=== PATIENT | female | born 1960 | race Caucasian/White ===

== ENCOUNTER 2017-08-12 17:02 | Inpatient (IN) | payer MEDICARE, MEDICAID ==
[~2017-08-12] VITALS: Ht 165.1 cm; Wt 80.9 kg
[~2017-08-12 17:02] MED LIST: ACET325T9 PO; ASPI-630 PO; BENZ1TAB5 PO; BETA15CR4 TP; CLOZ100T7 PO; DIVA500T4 PO; FAMO20TA5 PO; GUAI-40 PO; GUAI100L27 PO; GUAI200T3 PO; LEVO125T5 PO; MAG355OR29 PO; MAGN400O7 PO; METAMUCIL POWD283 GM PO; METF500T9 PO; METH29OI TP; NICO1PAT5 TD; NITR100C62 PO; NYST1POW2 TOP; OLAN5TAB5 PO; OXYB5TAB7 PO; POLY2500 PO; RANI150T2 PO; SIMV40TA3 PO; TOLT4CAP PO
[2017-08-12 17:47] LABS: BASO # 0.2 x10^3/uL (0.0-0.2); BASO % 0 % (0-3); EOS # 0.2 x10^3/uL (0.0-0.7); EOS % 0 % (0-3); HEMATOCRIT 44.1 % (36.0-47.0); HEMOGLOBIN 14.4 g/dL (12.0-15.5); LYMPH # 71.3 x10^3/uL (1.0-4.8); LYMPH % 87 % (24-48); MEAN CORPUSCULAR HEMOGLOBIN 34 pg (25-35); MEAN CORPUSCULAR HGB CONC 33 g/dL (31-37); MEAN CORPUSCULAR VOLUME 103 fL (79-100); MONO % 3 % (0-9); NEUT # 8.1 x10^3uL (1.8-7.7); NEUT % 10 % (31-73); PLATELET COUNT 308 x10^3/uL (140-400); RED BLOOD COUNT 4.27 x10^6/uL (3.50-5.40); RED CELL DISTRIBUTION WIDTH 13.8 % (11.5-14.5)
[2017-08-12 17:49] LABS: ALBUMIN 4.2 g/dL (3.4-5.0); ALBUMIN/GLOBULIN RATIO 0.9 (1.0-1.7); CALCIUM 9.1 mg/dL (8.5-10.1); CREATININE 0.8 mg/dL (0.6-1.0); GFR 73.4; MAGNESIUM 3.1 mg/dL (1.8-2.4); POTASSIUM 3.9 mmol/L (3.5-5.1); TOTAL BILIRUBIN 0.2 mg/dL (0.2-1.0); TOTAL PROTEIN 8.9 g/dL (6.4-8.2)
[2017-08-12 17:52] LABS: VAL ACID 13 mcg/mL (50-100)
[2017-08-12 18:01] LABS: WHITE BLOOD COUNT 81.7 x10^3/uL (4.0-11.0)
--- NOTE | 2017-08-12 18:29 | PHYS DOC ---
Past History Past Medical History: Anxiety, Constipation, CVA, Diabetes, GERD, High Cholesterol, Hypertension, Hypothyroid, Schizophrenia, Other Additional Past Medical Histor: Leukemia Past Surgical History: Appendectomy, Cholecystectomy Alcohol Use: None Drug Use: None Adult General Chief Complaint Chief Complaint: PSYCH EVALUATION HPI HPI Patient is a 57 year old female who presents with evaluation for psychiatric evaluation for admission to [facility]. She has no complaints presently. She has leukemia. No recent fever or illness. Review of Systems Review of Systems DIFFICULT TO OBTAIN DUE TO BASELINE COGNITIVE DEFICITS Patient answers "yes" to all ROS. Allergies Allergies Allergies Coded Allergies Type Severity Reaction Last Updated Verified Cephalosporins Allergy Intermediate 03/30/15 Yes Sulfa (Sulfonamide Antibiotics) Allergy Intermediate 03/30/15 Yes Thiazides Allergy Intermediate 03/30/15 Yes penicillin Allergy Intermediate 03/30/15 Yes Physical Exam Physical Exam Constitutional: Well developed, well nourished, no acute distress, non-toxic appearance. Flat affect HENT: Normocephalic, atraumatic, bilateral external ears normal, oropharynx moist, no oral exudates, nose normal. Eyes: PERRLA, EOMI, conjunctiva normal, no discharge. Neck: Normal range of motion, no tenderness, supple, no stridor. Cardiovascular:Heart rate regular rhythm, no murmur Lungs & Thorax: Bilateral breath sounds clear to auscultation Abdomen: Bowel sounds normal, soft, no tenderness, no masses, no pulsatile masses. Skin: Warm, dry, no erythema, no rash. Back: No tenderness, no CVA tenderness. Extremities: No tenderness, no cyanosis, no clubbing, ROM intact, no edema. Neurologic: Alert and oriented to person and place, normal motor function, normal sensory function, no focal deficits noted. Current Patient Data Vital Signs Vital Signs Date Time Temp Pulse Resp B/P (MAP) Pulse Ox O2 Delivery O2 Flow Rate FiO2 08/12/17 17:02 98.0 85 18 93 BP 135/79 Lab Results Laboratory Tests Test 08/12/17 17:15 White Blood Count 81.7 x10^3/uL (4.0-11.0) *H Red Blood Count 4.27 x10^6/uL (3.50-5.40) Hemoglobin 14.4 g/dL (12.0-15.5) Hematocrit 44.1 % (36.0-47.0) Mean Corpuscular Volume 103 fL (79-100) H Mean Corpuscular Hemoglobin 34 pg (25-35) Mean Corpuscular Hemoglobin Concent 33 g/dL (31-37) Red Cell Distribution Width 13.8 % (11.5-14.5) Platelet Count 308 x10^3/uL (140-400) Neutrophils (%) (Auto) 10 % (31-73) L Lymphocytes (%) (Auto) 87 % (24-48) H Monocytes (%) (Auto) 3 % (0-9) Eosinophils (%) (Auto) 0 % (0-3) Basophils (%) (Auto) 0 % (0-3) Neutrophils # (Auto) 8.1 x10^3uL (1.8-7.7) H Lymphocytes # (Auto) 71.3 x10^3/uL (1.0-4.8) H Monocytes # (Auto) 2.0 x10^3/uL (0.0-1.1) H Eosinophils # (Auto) 0.2 x10^3/uL (0.0-0.7) Basophils # (Auto) 0.2 x10^3/uL (0.0-0.2) Platelet Estimate Pending Sodium Level 142 mmol/L (136-145) Potassium Level 3.9 mmol/L (3.5-5.1) Chloride Level 104 mmol/L (98-107) Carbon Dioxide Level 29 mmol/L (21-32) Anion Gap 9 (6-14) Blood Urea Nitrogen 22 mg/dL (7-20) H Creatinine 0.8 mg/dL (0.6-1.0) Estimated GFR (Cockcroft-Gault) 73.4 BUN/Creatinine Ratio 28 (6-20) H Glucose Level 199 mg/dL (70-99) H Calcium Level 9.1 mg/dL (8.5-10.1) Magnesium Level 3.1 mg/dL (1.8-2.4) H Total Bilirubin 0.2 mg/dL (0.2-1.0) Aspartate Amino Transferase (AST) 18 U/L (15-37) Alanine Aminotransferase (ALT) 52 U/L (14-59) Alkaline Phosphatase 132 U/L (46-116) H Total Protein 8.9 g/dL (6.4-8.2) H Albumin 4.2 g/dL (3.4-5.0) Albumin/Globulin Ratio 0.9 (1.0-1.7) L Valproic Acid Level 13 mcg/mL (50-100) L Valproic Acid Last Dose Date 08/11/17 Valproic Acid Last Dose Time 2100 Course & Med Decision Making Course & Med Decision Making Patient accepted by Dr Carr. Here for medical clearance. Lab noted with elevated WBC consistent with her history of CML. urine is clear and vital signs stable. No evidence of acute process. I have spoken with the patient and/or caregivers. I have explained the patient' s condition, diagnosis and treatment plan based on the information available to me at this time. I have answered the patient's and/or caregiver's questions and addressed any concerns. The patient and/or caregivers have as good an understanding of the patient's diagnosis, condition and treatment plan as can be expected at this point. The patient has been stabilized within the capability of the emergency department. The patient will be transported for further care and management or will be moved to an observation or inpatient service. I have communicated with the staff or medical practitioner taking over this patient's care. Dragon Disclaimer Dragon Disclaimer This electronic medical record was generated, in whole or in part, using a voice recognition dictation system. Departure Departure: Impression: Primary Impression: Bipolar affective disorder Additional Impressions: Behavior concern in adult CML (chronic myelocytic leukemia) Disposition: ADMITTED INPATIENT Admitting Physician: Other (Bruno) Condition: STABLE Referrals: NON,STAFF (PCP) Problem Qualifiers Primary Impression: Bipolar affective disorder Active/Remission status: remission status unspecified Qualified Codes: F31.9 - Bipolar disorder, unspecified ZANE WILLIS MD Aug 12, 2017 18:29
[2017-08-12 18:33] LABS: BILIRUBIN,URINE NEG (NEG); CLARITY,URINE CLEAR; COLOR,URINE YELLOW; GLUCOSE,URINE NEG (NEG); NITRITE,URINE NEG (NEG); UROBILINOGEN,URINE 0.2 mg/dL (0.2 mg/dL)
[2017-08-12 18:34] LABS: AMORPHOUS SEDIMENT,UR PRESENT /HPF; BACTERIA,URINE FEW /HPF (0-FEW); RBC,URINE OCC /HPF (0-2); WBC,URINE OCC /HPF (0-4)
[2017-08-12 18:38] LABS: % LYMPHS 86 % (24-48); % MONOS 3 % (0-10); PLT ESTIMATE ADEQUATE (ADEQUATE)
[2017-08-12 18:39] LABS: PLATELET CLUMP PRESENT; SMUDGE CELLS PRESENT; TOXIC GRANULATION SLIGHT
[2017-08-12] MEDS ORDERED: NIAC500T PO (21:04)
[2017-08-12] MEDS ORDERED: ACET325T9 PO (21:04)
[2017-08-12] MEDS ORDERED: MULT1TAB52 PO (21:04)
[2017-08-12] MEDS ORDERED: OMEP20TA8 PO (21:04)
[2017-08-12] MEDS ORDERED: BENZ1TAB5 PO (21:04)
[2017-08-12] MEDS ORDERED: MELO7.5T29 PO (21:04)
[2017-08-12] MEDS ORDERED: LEVO150T5 PO (21:04)
[2017-08-12] MEDS ORDERED: CLOZ100T7 PO (21:04)
[2017-08-12] MEDS ORDERED: SERT25TA PO (21:04)
[2017-08-12] MEDS ORDERED: MAGNESIUM HYDROXIDE 2,400 MG/30 ML ORAL.SUSP. PO PRN (21:15)
[2017-08-12] MEDS ORDERED: MAG HYDROX/AL HYDROX/SIMETH 30 ML ORAL.SUSP PO PRN (21:15)
[2017-08-12] MEDS ORDERED: ACETAMINOPHEN 325 MG TABLET PO PRN ×2 (21:15→23:00)
[2017-08-12] MEDS ORDERED: METHYL SALICYLATE/MENTHOL TOPICAL OINTMENT 29GM TUBE. TP PRN (21:15)
[2017-08-12 22:46] VITALS: BP 147/43
[2017-08-13 05:45] VITALS: BP 138/74
[2017-08-13] MEDS: LEVOTHYROXINE 150 MCG TABLET PO SCH (06:26)
[2017-08-13] MEDS: SERTRALINE 25 MG TABLET. PO SCH (07:50)
[2017-08-13] MEDS: NICOTINE 14MG PATCH. TD SCH (07:50)
[2017-08-13] MEDS: cloZAPine 100 MG TABLET PO SCH ×2 (07:50→20:20)
[2017-08-13] MEDS: PANTOPRAZOLE 40 MG TABLET. PO SCH (09:10)
[2017-08-13] MEDS: MELOXICAM 7.5 MG TABLET PO SCH (09:11)
[2017-08-13] MEDS: ASPIRIN 81 MG TAB.CHEW PO SCH (09:11)
[2017-08-13] MEDS: ACETAMINOPHEN 325 MG TABLET PO SCH ×2 (09:11→20:18)
[2017-08-13] MEDS: BENZTROPINE MESYLATE 1 MG TABLET PO SCH ×2 (09:11→20:17)
[2017-08-13] MEDS: POLYETHYLENE GLYCOL 3350 17 GM PACKET. PO SCH (09:11)
[2017-08-13] MEDS: PSYLLIUM SEED (WITH SUGAR) PACKET. PO SCH (09:11)
[2017-08-13 11:36] LABS: THYROID STIM HORMONE (TSH) 6.597 uIU/mL (0.358-3.740)
--- NOTE | 2017-08-13 15:02 | PDOC1 ---
History of Present Illness Reason for Visit: Agitation History of Present Illness Pt sent from [place] where she had been recently easily agitated, paranoid, delusional. Saying that people are trying to shoot her, refusing meds and vitals, accusing people of stealing money from her. When I saw her this afternoon, she did acknowledge me, but did not answer any questions. As such, all information is gleaned from the nursing staff and the medical record. 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: CVA GI: Other (Diarrhea, chronic) Heme/Onc: Anemia NOS, Other (Leukemia) Psych: Schizophrenia, Other (Intellectual disability) Endocrine: Diabetes (Type 2), Hypothyroidism Past Surgical History: No pertinent history Family History: No pertinent hx Past Social History Smoke: 1 pack per day Alcohol: none Drugs: None Lives: Prison Review of Systems Review Of Systems ROS unreliable, unobtainable due to pt's mental status Allergies: Coded Allergies: Cephalosporins (Verified Allergy, Intermediate, 03/30/15) Sulfa (Sulfonamide Antibiotics) (Verified Allergy, Intermediate, 03/30/15) Thiazides (Verified Allergy, Intermediate, 03/30/15) penicillin (Verified Allergy, Intermediate, 03/30/15) Medications Current Medications Benztropine Mesylate (Cogentin) 1 mg BID PO Last administered on 08/13/17at 09: 11; Start 08/13/17 at 09:00 Clozapine (Clozaril) 100 mg DAILY PO Last administered on 08/13/17at 07:50; Start 08/13/17 at 09:00 Clozapine (Clozaril) 150 mg QHS PO ; Start 08/13/17 at 21:00 Divalproex Sodium (Depakote Er) 1,000 mg QHS PO ; Start 08/13/17 at 21:00 Sertraline HCl (Zoloft) 25 mg DAILY PO Last administered on 08/13/17at 07:50; Start 08/13/17 at 09:00 Acetaminophen (Tylenol) 650 mg PRN Q6HRS PRN PO PAIN / TEMP; Start 08/12/17 at 21:15 Multi-Ingredient Ointment (Analgesic Mentor) 1 glenny PRN QID PRN TP MUSCLE PAIN; Start 08/12/17 at 21:15 Al Hydroxide/Mg Hydroxide (Mylanta Plus Xs) 15 ml PRN AFTMEALHC PRN PO DYSPEPSIA; Start 08/12/17 at 21:15 Magnesium Hydroxide (Milk Of Magnesia) 2,400 mg PRN QHS PRN PO CONSTIPATION; Start 08/12/17 at 21:15 Nicotine (Nicoderm Cq 14mg) 1 patch DAILY TD Last administered on 08/13/17at 07: 50; Start 08/13/17 at 09:00 Acetaminophen (Tylenol) 650 mg BID PO Last administered on 08/13/17at 09:11; Start 08/13/17 at 09:00 Acetaminophen (Tylenol) 650 mg PRN Q4HRS PRN PO PAIN / TEMP; Start 08/12/17 at 23:00; Stop 08/13/17 at 12:14; Status DC Aspirin (Children'S Aspirin) 81 mg DAILY PO Last administered on 08/13/17at 09: 11; Start 08/13/17 at 09:00 Levothyroxine Sodium (Synthroid) 150 mcg DAILY06 PO Last administered on at 06:26; Start 08/13/17 at 06:00 Meloxicam (Mobic) 7.5 mg DAILY PO Last administered on 08/13/17at 09:11; Start 08/13/17 at 09:00 Metformin HCl (Glucophage Xr) 1,000 mg DAILYWSUP PO ; Start 08/13/17 at 17:00 Niacin (Slo-Niacin) 500 mg QHS PO ; Start 08/13/17 at 21:00 Pantoprazole Sodium (Protonix) 40 mg DAILYAC PO Last administered on 08/13/17at 09:10; Start 08/13/17 at 07:30 Polyethylene Glycol (miraLAX) 17 gm DAILY PO Last administered on 08/13/17at 09: 11; Start 08/13/17 at 09:00 Psyllium Hydrophilic Mucilloid (Metamucil) 1 pkt DAILY PO Last administered on 08/13/17at 09:11; Start 08/13/17 at 09:00 Active Scripts Active Reported Clozapine 100 Mg Tablet 150 Mg PO QHS Zoloft (Sertraline Hcl) 25 Mg Tablet 25 Mg PO DAILY Niaspan (Niacin) 500 Mg Tab.er.24h 500 Mg PO QHS Omeprazole 20 Mg Tablet.dr 20 Mg PO DAILYAC Levothyroxine Sodium 150 Mcg Tablet 150 Mcg PO DAILYAC Tylenol (Acetaminophen) 325 Mg Tablet 650 Mg PO BID Benztropine Mesylate 1 Mg Tablet 1 Mg PO BID Multivitamins (Multivitamin) 1 Each Tablet 1 Each PO DAILY Meloxicam 7.5 Mg Tablet 7.5 Mg PO DAILY Clozapine 100 Mg Tablet 100 Mg PO DAILY Metamucil Powder (Psyllium Seed/Aspartame) 283 Gm Powder 1 Packet PO DAILY Tylenol (Acetaminophen) 325 Mg Tablet 650 Mg PO PRN Q4HRS PRN Polyethylene Glycol 3350 2,500 Gm Powder 17 Gm PO DAILY Aspirin 81 Mg Tab.chew 1 Tab PO DAILY Depakote Er (Divalproex Sodium) 500 Mg Tab.er.24h 1,000 Mg PO QHS Metformin Hcl Er (Metformin Hcl) 500 Mg Tab.er.24h 1,000 Mg PO DAILYWSUP Milk Of Magnesia (Magnesium Hydroxide) 400 Mg/5 Ml Oral.susp 30 Ml PO PRN BID PRN Al[place]one Liquid (Mag Hydrox/Al Hydrox/Simeth) 355 Ml Oral.susp 30 Ml PO PRN Q6HRS PRN Exam Vital Signs Vital Signs Date Time Temp Pulse Resp B/P (MAP) Pulse Ox O2 Delivery O2 Flow Rate FiO2 08/13/17 05:45 96.7 58 20 138/74 (95) 93 08/12/17 20:10 Room Air General Appearance: Alert, Cooperative, No acute distress, Other (Does not answer questions, but will acknowledge me) HEENT: Atraumatic, PERRLA, EOMI, Mucous membr. moist/pink, Other (Neck supple, no torticollis, no JVD, no LAD) Respiratory: Clear to auscultation, Normal air movement Heart: Other (Regular, no murmur, rate normal) Abdominal: Soft, No tenderness, No masses Extremities: Normal pulses, No tenderness/swelling Skin: No rashes, No breakdown Neuro: Other (Right hemiplegia, wears brace on RLE. Unable to assess further due to pt not following instructions, but no obvious focal deficits noted otherwiise) Psych/Mental Status: Other (Alert, but does not speak to me.) Assessment/Plan Assessment/Plan 1. Schizophrenia w/ intellectual disability and behavior disturbances: Per Dr. Carr. 2. DM2: Monitor sugars. Continue home meds, avoid hypoglycemia. 3. HTN: Monitor BP's, adjust BP as necessary. 4. CVA w/ right hemiplegia: Continue aspirin for secondary stroke prophylaxis. 5. Hypothyroid: Pt's TSH is a little high, but she reportedly has not been taking her meds. We will continue her home dose. 6. Leukemia: WBC much higher than when she was here in 2015. This appears to be worsening. No treatment is being done, apparently. 7. DVT proph: Pt is WC-bound, recommend BID heparin to avoid DVT. COURSE Allergies Coded Allergies Type Severity Reaction Last Updated Verified Cephalosporins Allergy Intermediate 03/30/15 Yes Sulfa (Sulfonamide Antibiotics) Allergy Intermediate 03/30/15 Yes Thiazides Allergy Intermediate 03/30/15 Yes penicillin Allergy Intermediate 03/30/15 Yes Laboratory Tests Test 08/12/17 17:15 08/12/17 18:15 White Blood Count 81.7 x10^3/uL (4.0-11.0) Red Blood Count 4.27 x10^6/uL (3.50-5.40) Hemoglobin 14.4 g/dL (12.0-15.5) Hematocrit 44.1 % (36.0-47.0) Mean Corpuscular Volume 103 fL (79-100) Mean Corpuscular Hemoglobin 34 pg (25-35) Mean Corpuscular Hemoglobin Concent 33 g/dL (31-37) Red Cell Distribution Width 13.8 % (11.5-14.5) Platelet Count 308 x10^3/uL (140-400) Neutrophils (%) (Auto) 10 % (31-73) Lymphocytes (%) (Auto) 87 % (24-48) Monocytes (%) (Auto) 3 % (0-9) Eosinophils (%) (Auto) 0 % (0-3) Basophils (%) (Auto) 0 % (0-3) Neutrophils # (Auto) 8.1 x10^3uL (1.8-7.7) Lymphocytes # (Auto) 71.3 x10^3/uL (1.0-4.8) Monocytes # (Auto) 2.0 x10^3/uL (0.0-1.1) Eosinophils # (Auto) 0.2 x10^3/uL (0.0-0.7) Basophils # (Auto) 0.2 x10^3/uL (0.0-0.2) Segmented Neutrophils % 11 % (35-66) Lymphocytes % 86 % (24-48) Monocytes % 3 % (0-10) Smudge Cells Present Toxic Granulation Slight Platelet Estimate Adequate (ADEQUATE) Platelet Clumps, EDTA Present Sodium Level 142 mmol/L (136-145) Potassium Level 3.9 mmol/L (3.5-5.1) Chloride Level 104 mmol/L (98-107) Carbon Dioxide Level 29 mmol/L (21-32) Anion Gap 9 (6-14) Blood Urea Nitrogen 22 mg/dL (7-20) Creatinine 0.8 mg/dL (0.6-1.0) Estimated GFR (Cockcroft-Gault) 73.4 BUN/Creatinine Ratio 28 (6-20) Glucose Level 199 mg/dL (70-99) Calcium Level 9.1 mg/dL (8.5-10.1) Magnesium Level 3.1 mg/dL (1.8-2.4) Iron Level 62 ug/dL (50-170) Total Iron Binding Capacity 391 ug/dL (250-450) Iron Saturation 16 % (15-34) Total Bilirubin 0.2 mg/dL (0.2-1.0) Aspartate Amino Transf (AST/SGOT) 18 U/L (15-37) Alanine Aminotransferase (ALT/SGPT) 52 U/L (14-59) Alkaline Phosphatase 132 U/L (46-116) Total Protein 8.9 g/dL (6.4-8.2) Albumin 4.2 g/dL (3.4-5.0) Albumin/Globulin Ratio 0.9 (1.0-1.7) Triglycerides Level 287 mg/dL (0-150) Cholesterol Level 198 mg/dL (0-200) LDL Cholesterol, Calculated 97 mg/dL (0-100) VLDL Cholesterol, Calculated 57 mg/dL (0-40) Non-HDL Cholesterol Calculated 154 mg/dL (0-129) HDL Cholesterol 44 mg/dL (40-60) Cholesterol/HDL Ratio 4.0 Thyroid Stimulating Hormone (TSH) 6.597 uIU/mL (0.358-3.740) Valproic Acid (Depakene) Level 13 mcg/mL (50-100) Valproic Acid Last Dose Date 08/11/17 Valproic Acid Last Dose Time 2100 Urine Collection Type U cath Urine Color Yellow Urine Clarity Clear Urine pH 8.5 Urine Specific [place] 1.020 Urine Protein Neg (NEG-TRACE) Urine Glucose (UA) Neg mg/dL (NEG) Urine Ketones (Stick) Neg mg/dL (NEG) Urine Blood Neg (NEG) Urine Nitrite Neg (NEG) Urine Bilirubin Neg (NEG) Urine Urobilinogen Dipstick 0.2 mg/dL (0.2 mg/dL) Urine Leukocyte Esterase Neg (NEG) Urine RBC Occ /HPF (0-2) Urine WBC Occ /HPF (0-4) Urine Squamous Epithelial Cells None /LPF Urine Amorphous Sediment Present /HPF Urine Bacteria Few /HPF (0-FEW) Current Medications Medications (Trade) Dose Ordered Sig/[place] Route PRN Reason Start Time Stop Time Status Last Admin Dose Admin Benztropine Mesylate (Cogentin) 1 mg BID PO 08/13/17 09:00 08/13/17 09:11 Clozapine (Clozaril) 100 mg DAILY PO 08/13/17 09:00 08/13/17 07:50 Clozapine (Clozaril) 150 mg QHS PO 08/13/17 21:00 Divalproex Sodium (Depakote Er) 1,000 mg QHS PO 08/13/17 21:00 Sertraline HCl (Zoloft) 25 mg DAILY PO 08/13/17 09:00 08/13/17 07:50 Acetaminophen (Tylenol) 650 mg PRN Q6HRS PRN PO PAIN / TEMP 08/12/17 21:15 Multi-Ingredient Ointment (Analgesic Mentor) 1 glenny PRN QID PRN TP MUSCLE PAIN 08/12/17 21:15 Al Hydroxide/Mg Hydroxide (Mylanta Plus Xs) 15 ml PRN AFTMEALHC PRN PO DYSPEPSIA 08/12/17 21:15 Magnesium Hydroxide (Milk Of Magnesia) 2,400 mg PRN QHS PRN PO CONSTIPATION 08/12/17 21:15 Nicotine (Nicoderm Cq 14mg) 1 patch DAILY TD 08/13/17 09:00 08/13/17 07:50 Acetaminophen (Tylenol) 650 mg BID PO 08/13/17 09:00 08/13/17 09:11 Acetaminophen (Tylenol) 650 mg PRN Q4HRS PRN PO PAIN / TEMP 08/12/17 23:00 08/13/17 12:14 DC Aspirin (Children'S Aspirin) 81 mg DAILY PO 08/13/17 09:00 08/13/17 09:11 Levothyroxine Sodium (Synthroid) 150 mcg DAILY06 PO 08/13/17 06:00 08/13/17 06:26 Meloxicam (Mobic) 7.5 mg DAILY PO 08/13/17 09:00 08/13/17 09:11 Metformin HCl (Glucophage Xr) 1,000 mg DAILYWSUP PO 08/13/17 17:00 Niacin (Slo-Niacin) 500 mg QHS PO 08/13/17 21:00 Pantoprazole Sodium (Protonix) 40 mg DAILYAC PO 08/13/17 07:30 08/13/17 09:10 Polyethylene Glycol (miraLAX) 17 gm DAILY PO 08/13/17 09:00 08/13/17 09:11 Psyllium Hydrophilic Mucilloid (Metamucil) 1 pkt DAILY PO 08/13/17 09:00 08/13/17 09:11 I & O 08/13/17 00:00 Intake Total 0 ml Balance 0 ml Vital Signs Date Time Temp Pulse Resp B/P (MAP) Pulse Ox O2 Delivery O2 Flow Rate FiO2 08/13/17 05:45 96.7 58 20 138/74 (95) 93 08/12/17 20:10 Room Air ORLANDO MAK MD Aug 13, 2017 15:02
[2017-08-13 15:06] LABS: T3 TOTAL 70 ng/dL (71-180)
[2017-08-13 16:44] VITALS: BP 137/59
[2017-08-13] MEDS: metFORMIN XR 500 MG TAB.ER.24H PO SCH (17:00)
--- NOTE | 2017-08-13 19:47 | PDOC ---
Exam Note: Andrew Note: Please also refer to the separate dictated note~for this date of service dictated separately.~Patient seen individually. Discussed the patient with Nursing staff reviewed the chart.~Reviewed interim history and current functioning. Reviewed vital signs,~Labs/ Radiology~and current medications noted below. Continue current treatment with the changes noted in the dictated addendum note Assessment: Vital Signs: Vital Signs Date Time Temp Pulse Resp B/P (MAP) Pulse Ox O2 Delivery O2 Flow Rate FiO2 08/13/17 16:44 98.6 77 18 137/59 (85) 94 08/12/17 20:10 Room Air I&O Intake and Output 08/13/17 07:00 Intake Total 0 ml Balance 0 ml Intake Oral 0 ml Current Medications: Meds: Current Medications Benztropine Mesylate (Cogentin) 1 mg BID PO Last administered on 08/13/17at 09: 11; Start 08/13/17 at 09:00 Clozapine (Clozaril) 100 mg DAILY PO Last administered on 08/13/17at 07:50; Start 08/13/17 at 09:00 Clozapine (Clozaril) 150 mg QHS PO ; Start 08/13/17 at 21:00 Divalproex Sodium (Depakote Er) 1,000 mg QHS PO ; Start 08/13/17 at 21:00 Sertraline HCl (Zoloft) 25 mg DAILY PO Last administered on 08/13/17at 07:50; Start 08/13/17 at 09:00 Acetaminophen (Tylenol) 650 mg PRN Q6HRS PRN PO PAIN / TEMP; Start 08/12/17 at 21:15 Multi-Ingredient Ointment (Analgesic [place]) 1 glenny PRN QID PRN TP MUSCLE PAIN; Start 08/12/17 at 21:15 Al Hydroxide/Mg Hydroxide (Mylanta Plus Xs) 15 ml PRN AFTMEALHC PRN PO DYSPEPSIA; Start 08/12/17 at 21:15; Stop 08/13/17 at 17:19; Status DC Magnesium Hydroxide (Milk Of Magnesia) 2,400 mg PRN QHS PRN PO CONSTIPATION; Start 08/12/17 at 21:15; Stop 08/13/17 at 17:19; Status DC Nicotine (Nicoderm Cq 14mg) 1 patch DAILY TD Last administered on 08/13/17at 07: 50; Start 08/13/17 at 09:00 Acetaminophen (Tylenol) 650 mg BID PO Last administered on 08/13/17at 09:11; Start 08/13/17 at 09:00 Acetaminophen (Tylenol) 650 mg PRN Q4HRS PRN PO PAIN / TEMP; Start 08/12/17 at 23:00; Stop 08/13/17 at 12:14; Status DC Aspirin (Children'S Aspirin) 81 mg DAILY PO Last administered on 08/13/17at 09: 11; Start 08/13/17 at 09:00 Levothyroxine Sodium (Synthroid) 150 mcg DAILY06 PO Last administered on at 06:26; Start 08/13/17 at 06:00 Meloxicam (Mobic) 7.5 mg DAILY PO Last administered on 08/13/17at 09:11; Start 08/13/17 at 09:00 Metformin HCl (Glucophage Xr) 1,000 mg DAILYWSUP PO Last administered on at 17:00; Start 08/13/17 at 17:00 Niacin (Slo-Niacin) 500 mg QHS PO ; Start 08/13/17 at 21:00 Pantoprazole Sodium (Protonix) 40 mg DAILYAC PO Last administered on 08/13/17at 09:10; Start 08/13/17 at 07:30 Polyethylene Glycol (miraLAX) 17 gm DAILY PO Last administered on 08/13/17at 09: 11; Start 08/13/17 at 09:00 Psyllium Hydrophilic Mucilloid (Metamucil) 1 pkt DAILY PO Last administered on 08/13/17at 09:11; Start 08/13/17 at 09:00 Heparin Sodium (Porcine) 5,000 unit Q12HR SQ ; Start 08/13/17 at 21:00 Active Scripts Active Reported Clozapine 100 Mg Tablet 150 Mg PO QHS Zoloft (Sertraline Hcl) 25 Mg Tablet 25 Mg PO DAILY Niaspan (Niacin) 500 Mg Tab.er.24h 500 Mg PO QHS Omeprazole 20 Mg Tablet.dr 20 Mg PO DAILYAC Levothyroxine Sodium 150 Mcg Tablet 150 Mcg PO DAILYAC Tylenol (Acetaminophen) 325 Mg Tablet 650 Mg PO BID Benztropine Mesylate 1 Mg Tablet 1 Mg PO BID Multivitamins (Multivitamin) 1 Each Tablet 1 Each PO DAILY Meloxicam 7.5 Mg Tablet 7.5 Mg PO DAILY Clozapine 100 Mg Tablet 100 Mg PO DAILY Metamucil Powder (Psyllium Seed/Aspartame) 283 Gm Powder 1 Packet PO DAILY Tylenol (Acetaminophen) 325 Mg Tablet 650 Mg PO PRN Q4HRS PRN Polyethylene Glycol 3350 2,500 Gm Powder 17 Gm PO DAILY Aspirin 81 Mg Tab.chew 1 Tab PO DAILY Depakote Er (Divalproex Sodium) 500 Mg Tab.er.24h 1,000 Mg PO QHS Metformin Hcl Er (Metformin Hcl) 500 Mg Tab.er.24h 1,000 Mg PO DAILYWSUP Milk Of Magnesia (Magnesium Hydroxide) 400 Mg/5 Ml Oral.susp 30 Ml PO PRN BID PRN Almacone Liquid (Mag Hydrox/Al Hydrox/Simeth) 355 Ml Oral.susp 30 Ml PO PRN Q6HRS PRN I have reviewed the current psychotropics carefully including drug interactions. Risk benefit ratio favors no change other than as noted in my dictated progress note. Diagnosis: Problems: (1) Anxiety disorder (2) Impulse control disorder (3) Schizoaffective disorder (4) Schizoaffective disorder, chronic condition with acute exacerbation (5) Borderline intellectual disability GEORGE REYNOLDS MD Aug 13, 2017 19:47
[2017-08-13] MEDS: NIACIN ER 500 MG TABLET.ER PO SCH (20:20)
[2017-08-13] MEDS: DIVALPROEX ER 500 MG TAB.ER.24H PO SCH (20:20)
[2017-08-13] MEDS: HEPARIN PF for SUB-Q USE 5,000 UNIT/0.5 ML VIAL. SQ SCH (20:35)
[2017-08-14 00:08] LABS: HEMOGLOBIN A1C 6.5 % (4.8-5.6)
[2017-08-14] MEDS: LEVOTHYROXINE 150 MCG TABLET PO SCH (05:34)
[2017-08-14 06:10] VITALS: BP 113/71
[2017-08-14 07:46] LABS: BASO # 0.1 x10^3/uL (0.0-0.2); BASO % 0 % (0-3); EOS # 0.3 x10^3/uL (0.0-0.7); EOS % 1 % (0-3); HEMATOCRIT 38.8 % (36.0-47.0); HEMOGLOBIN 12.5 g/dL (12.0-15.5); LYMPH # 63.9 x10^3/uL (1.0-4.8); LYMPH % 90 % (24-48); MEAN CORPUSCULAR HEMOGLOBIN 33 pg (25-35); MEAN CORPUSCULAR HGB CONC 32 g/dL (31-37); MEAN CORPUSCULAR VOLUME 103 fL (79-100); MONO # 1.1 x10^3/uL (0.0-1.1); MONO % 2 % (0-9); NEUT # 5.5 x10^3uL (1.8-7.7); NEUT % 8 % (31-73); PLATELET COUNT 265 x10^3/uL (140-400); RED BLOOD COUNT 3.77 x10^6/uL (3.50-5.40); RED CELL DISTRIBUTION WIDTH 13.7 % (11.5-14.5)
[2017-08-14] MEDS: PANTOPRAZOLE 40 MG TABLET. PO SCH (08:07)
[2017-08-14] MEDS: SERTRALINE 25 MG TABLET. PO SCH (08:07)
[2017-08-14] MEDS: BENZTROPINE MESYLATE 1 MG TABLET PO SCH ×2 (08:07→20:24)
[2017-08-14] MEDS: ACETAMINOPHEN 325 MG TABLET PO SCH ×2 (08:07→20:25)
[2017-08-14] MEDS: MELOXICAM 7.5 MG TABLET PO SCH (08:07)
[2017-08-14] MEDS: cloZAPine 100 MG TABLET PO SCH ×2 (08:07→20:25)
[2017-08-14] MEDS: ASPIRIN 81 MG TAB.CHEW PO SCH (08:08)
[2017-08-14] MEDS: PSYLLIUM SEED (WITH SUGAR) PACKET. PO SCH (08:08)
[2017-08-14] MEDS: NICOTINE 14MG PATCH. TD SCH (08:08)
[2017-08-14] MEDS: POLYETHYLENE GLYCOL 3350 17 GM PACKET. PO SCH (08:09)
[2017-08-14] MEDS: HEPARIN PF for SUB-Q USE 5,000 UNIT/0.5 ML VIAL. SQ SCH ×2 (08:09→20:27)
[2017-08-14 09:41] LABS: % LYMPHS 93 % (24-48); % SEGS 7 % (35-66); PLT ESTIMATE ADEQUATE (ADEQUATE)
[2017-08-14 15:59] VITALS: BP 133/86
[2017-08-14] MEDS: metFORMIN XR 500 MG TAB.ER.24H PO SCH (17:24)
--- NOTE | 2017-08-14 20:06 | PDOC ---
Exam Note: Andrew Note: Please also refer to the separate dictated note~for this date of service dictated separately.~Patient seen individually. Discussed the patient with Nursing staff reviewed the chart.~Reviewed interim history and current functioning. Reviewed vital signs,~Labs/ Radiology~and current medications noted below. Continue current treatment with the changes noted in the dictated addendum note Assessment: Vital Signs: Vital Signs Date Time Temp Pulse Resp B/P (MAP) Pulse Ox O2 Delivery O2 Flow Rate FiO2 08/14/17 15:59 97.1 84 18 133/86 (102) 95 08/14/17 06:10 Room Air I&O Intake and Output 08/14/17 07:00 Intake Total 840 ml Balance 840 ml Intake Oral 840 ml Labs: Laboratory Tests Test 08/14/17 07:22 08/14/17 07:25 White Blood Count 71.0 x10^3/uL (4.0-11.0) *H Red Blood Count 3.77 x10^6/uL (3.50-5.40) Hemoglobin 12.5 g/dL (12.0-15.5) Hematocrit 38.8 % (36.0-47.0) Mean Corpuscular Volume 103 fL (79-100) H Mean Corpuscular Hemoglobin 33 pg (25-35) Mean Corpuscular Hemoglobin Concent 32 g/dL (31-37) Red Cell Distribution Width 13.7 % (11.5-14.5) Platelet Count 265 x10^3/uL (140-400) Neutrophils (%) (Auto) 8 % (31-73) L Lymphocytes (%) (Auto) 90 % (24-48) H Monocytes (%) (Auto) 2 % (0-9) Eosinophils (%) (Auto) 1 % (0-3) Basophils (%) (Auto) 0 % (0-3) Neutrophils # (Auto) 5.5 x10^3uL (1.8-7.7) Lymphocytes # (Auto) 63.9 x10^3/uL (1.0-4.8) H Monocytes # (Auto) 1.1 x10^3/uL (0.0-1.1) Eosinophils # (Auto) 0.3 x10^3/uL (0.0-0.7) Basophils # (Auto) 0.1 x10^3/uL (0.0-0.2) Segmented Neutrophils % 7 % (35-66) L Lymphocytes % 93 % (24-48) H Platelet Estimate Adequate (ADEQUATE) Glucose (Fingerstick) 127 mg/dL (70-99) H Current Medications: Meds: Current Medications Benztropine Mesylate (Cogentin) 1 mg BID PO Last administered on 08/14/17 08: 07; Start 08/13/17 at 09:00 Clozapine (Clozaril) 100 mg DAILY PO Last administered on 08/14/17 08:07; Start 08/13/17 at 09:00 Clozapine (Clozaril) 150 mg QHS PO Last administered on 08/13/17 20:20; Start 08/13/17 at 21:00 Divalproex Sodium (Depakote Er) 1,000 mg QHS PO Last administered on 08/13/17at 20:20; Start 08/13/17 at 21:00 Sertraline HCl (Zoloft) 25 mg DAILY PO Last administered on 08/14/17at 08:07; Start 08/13/17 at 09:00 Acetaminophen (Tylenol) 650 mg PRN Q6HRS PRN PO PAIN / TEMP; Start 08/12/17 at 21:15 Multi-Ingredient Ointment (Analgesic [place]) 1 glenny PRN QID PRN TP MUSCLE PAIN; Start 08/12/17 at 21:15 Al Hydroxide/Mg Hydroxide (Mylanta Plus Xs) 15 ml PRN AFTMEALHC PRN PO DYSPEPSIA; Start 08/12/17 at 21:15; Stop 08/13/17 at 17:19; Status DC Magnesium Hydroxide (Milk Of Magnesia) 2,400 mg PRN QHS PRN PO CONSTIPATION; Start 08/12/17 at 21:15; Stop 08/13/17 at 17:19; Status DC Nicotine (Nicoderm Cq 14mg) 1 patch DAILY TD Last administered on 08/14/17at 08: 08; Start 08/13/17 at 09:00 Acetaminophen (Tylenol) 650 mg BID PO Last administered on 08/14/17at 08:07; Start 08/13/17 at 09:00 Acetaminophen (Tylenol) 650 mg PRN Q4HRS PRN PO PAIN / TEMP; Start 08/12/17 at 23:00; Stop 08/13/17 at 12:14; Status DC Aspirin (Children'S Aspirin) 81 mg DAILY PO Last administered on 08/14/17 08: 08; Start 08/13/17 at 09:00 Levothyroxine Sodium (Synthroid) 150 mcg DAILY06 PO Last administered on at 05:34; Start 08/13/17 at 06:00 Meloxicam (Mobic) 7.5 mg DAILY PO Last administered on 08/14/17 08:07; Start 08/13/17 at 09:00 Metformin HCl (Glucophage Xr) 1,000 mg DAILYWSUP PO Last administered on at 17:24; Start 08/13/17 at 17:00 Niacin (Slo-Niacin) 500 mg QHS PO Last administered on 08/13/17at 20:20; Start 08/13/17 at 21:00 Pantoprazole Sodium (Protonix) 40 mg DAILYAC PO Last administered on 08/14/17 08:07; Start 08/13/17 at 07:30 Polyethylene Glycol (miraLAX) 17 gm DAILY PO Last administered on 08/14/17 08: 09; Start 08/13/17 at 09:00 Psyllium Hydrophilic Mucilloid (Metamucil) 1 pkt DAILY PO Last administered on 08/14/17 08:08; Start 08/13/17 at 09:00 Heparin Sodium (Porcine) 5,000 unit Q12HR SQ Last administered on 08/14/17at 08: 09; Start 08/13/17 at 21:00 Active Scripts Active Reported Clozapine 100 Mg Tablet 150 Mg PO QHS Zoloft (Sertraline Hcl) 25 Mg Tablet 25 Mg PO DAILY Niaspan (Niacin) 500 Mg Tab.er.24h 500 Mg PO QHS Omeprazole 20 Mg Tablet.dr 20 Mg PO DAILYAC Levothyroxine Sodium 150 Mcg Tablet 150 Mcg PO DAILYAC Tylenol (Acetaminophen) 325 Mg Tablet 650 Mg PO BID Benztropine Mesylate 1 Mg Tablet 1 Mg PO BID Multivitamins (Multivitamin) 1 Each Tablet 1 Each PO DAILY Meloxicam 7.5 Mg Tablet 7.5 Mg PO DAILY Clozapine 100 Mg Tablet 100 Mg PO DAILY Metamucil Powder (Psyllium Seed/Aspartame) 283 Gm Powder 1 Packet PO DAILY Tylenol (Acetaminophen) 325 Mg Tablet 650 Mg PO PRN Q4HRS PRN Polyethylene Glycol 3350 2,500 Gm Powder 17 Gm PO DAILY Aspirin 81 Mg Tab.chew 1 Tab PO DAILY Depakote Er (Divalproex Sodium) 500 Mg Tab.er.24h 1,000 Mg PO QHS Metformin Hcl Er (Metformin Hcl) 500 Mg Tab.er.24h 1,000 Mg PO DAILYWSUP Milk Of Magnesia (Magnesium Hydroxide) 400 Mg/5 Ml Oral.susp 30 Ml PO PRN BID PRN Almacone Liquid (Mag Hydrox/Al Hydrox/Simeth) 355 Ml Oral.susp 30 Ml PO PRN Q6HRS PRN I have reviewed the current psychotropics carefully including drug interactions. Risk benefit ratio favors no change other than as noted in my dictated progress note. Diagnosis: Problems: (1) Anxiety disorder (2) Impulse control disorder (3) Schizoaffective disorder (4) Schizoaffective disorder, chronic condition with acute exacerbation (5) Borderline intellectual disability GEORGE REYNOLDS MD Aug 14, 2017 20:06
[2017-08-14] MEDS: DIVALPROEX ER 500 MG TAB.ER.24H PO SCH (20:24)
[2017-08-14] MEDS: NIACIN ER 500 MG TABLET.ER PO SCH (20:25)
[2017-08-15] MEDS: LEVOTHYROXINE 150 MCG TABLET PO SCH ×2 (06:00→06:18)
[2017-08-15 06:06] VITALS: BP 104/50
[2017-08-15] MEDS: SERTRALINE 25 MG TABLET. PO SCH (08:00)
[2017-08-15] MEDS: ASPIRIN 81 MG TAB.CHEW PO SCH (08:01)
[2017-08-15] MEDS: ACETAMINOPHEN 325 MG TABLET PO SCH ×2 (08:01→19:52)
[2017-08-15] MEDS: BENZTROPINE MESYLATE 1 MG TABLET PO SCH ×2 (08:01→19:51)
[2017-08-15] MEDS: cloZAPine 100 MG TABLET PO SCH ×2 (08:01→19:52)
[2017-08-15] MEDS: MELOXICAM 7.5 MG TABLET PO SCH (08:01)
[2017-08-15] MEDS: PSYLLIUM SEED (WITH SUGAR) PACKET. PO SCH (08:02)
[2017-08-15] MEDS: PANTOPRAZOLE 40 MG TABLET. PO SCH (08:02)
[2017-08-15] MEDS: NICOTINE 14MG PATCH. TD SCH (08:02)
[2017-08-15] MEDS: POLYETHYLENE GLYCOL 3350 17 GM PACKET. PO SCH (08:02)
[2017-08-15] MEDS: HEPARIN PF for SUB-Q USE 5,000 UNIT/0.5 ML VIAL. SQ SCH ×2 (08:05→19:54)
[2017-08-15 09:45] LABS: % SEGS 11 % (35-66)
[2017-08-15 16:17] VITALS: BP 130/81
[2017-08-15] MEDS: metFORMIN XR 500 MG TAB.ER.24H PO SCH (16:54)
[2017-08-15] MEDS: DIVALPROEX ER 500 MG TAB.ER.24H PO SCH (19:51)
[2017-08-15] MEDS: NIACIN ER 500 MG TABLET.ER PO SCH (19:52)
--- NOTE | 2017-08-15 20:07 | PDOC ---
Exam Note: Andrew Note: Please also refer to the separate dictated note~for this date of service dictated separately.~Patient seen individually. Discussed the patient with Nursing staff reviewed the chart.~Reviewed interim history and current functioning. Reviewed vital signs,~Labs/ Radiology~and current medications noted below. Continue current treatment with the changes noted in the dictated addendum note Assessment: Vital Signs: Vital Signs Date Time Temp Pulse Resp B/P (MAP) Pulse Ox O2 Delivery O2 Flow Rate FiO2 08/15/17 16:17 97.8 90 16 130/81 (97) 95 08/14/17 06:10 Room Air I&O Intake and Output 08/15/17 07:00 Intake Total 960 ml Balance 960 ml Intake Oral 960 ml Labs: Laboratory Tests Test 08/15/17 07:12 Glucose (Fingerstick) 120 mg/dL (70-99) H Current Medications: Meds: Current Medications Benztropine Mesylate (Cogentin) 1 mg BID PO Last administered on 08/15/17at 19: 51; Start 08/13/17 at 09:00 Clozapine (Clozaril) 100 mg DAILY PO Last administered on 08/15/17at 08:01; Start 08/13/17 at 09:00 Clozapine (Clozaril) 150 mg QHS PO Last administered on 08/15/17at 19:52; Start 08/13/17 at 21:00 Divalproex Sodium (Depakote Er) 1,000 mg QHS PO Last administered on 08/15/17at 19:51; Start 08/13/17 at 21:00 Sertraline HCl (Zoloft) 25 mg DAILY PO Last administered on 08/15/17at 08:00; Start 08/13/17 at 09:00 Acetaminophen (Tylenol) 650 mg PRN Q6HRS PRN PO PAIN / TEMP; Start 08/12/17 at 21:15 Multi-Ingredient Ointment (Analgesic [place]) 1 glenny PRN QID PRN TP MUSCLE PAIN; Start 08/12/17 at 21:15 Al Hydroxide/Mg Hydroxide (Mylanta Plus Xs) 15 ml PRN AFTMEALHC PRN PO DYSPEPSIA; Start 08/12/17 at 21:15; Stop 08/13/17 at 17:19; Status DC Magnesium Hydroxide (Milk Of Magnesia) 2,400 mg PRN QHS PRN PO CONSTIPATION; Start 08/12/17 at 21:15; Stop 08/13/17 at 17:19; Status DC Nicotine (Nicoderm Cq 14mg) 1 patch DAILY TD Last administered on 08/15/17at 08: 02; Start 08/13/17 at 09:00 Acetaminophen (Tylenol) 650 mg BID PO Last administered on 08/15/17 19:52; Start 08/13/17 at 09:00 Acetaminophen (Tylenol) 650 mg PRN Q4HRS PRN PO PAIN / TEMP; Start 08/12/17 at 23:00; Stop 08/13/17 at 12:14; Status DC Aspirin (Children'S Aspirin) 81 mg DAILY PO Last administered on 08/15/17 08: 01; Start 08/13/17 at 09:00 Levothyroxine Sodium (Synthroid) 150 mcg DAILY06 PO Last administered on at 05:34; Start 08/13/17 at 06:00 Meloxicam (Mobic) 7.5 mg DAILY PO Last administered on 08/15/17at 08:01; Start 08/13/17 at 09:00 Metformin HCl (Glucophage Xr) 1,000 mg DAILYWSUP PO Last administered on 16:54; Start 08/13/17 at 17:00 Niacin (Slo-Niacin) 500 mg QHS PO Last administered on 08/15/17 19:52; Start 08/13/17 at 21:00 Pantoprazole Sodium (Protonix) 40 mg DAILYAC PO Last administered on 08/15/17 08:02; Start 08/13/17 at 07:30 Polyethylene Glycol (miraLAX) 17 gm DAILY PO Last administered on 08/15/17 08: 02; Start 08/13/17 at 09:00 Psyllium Hydrophilic Mucilloid (Metamucil) 1 pkt DAILY PO Last administered on 08/15/17 08:02; Start 08/13/17 at 09:00 Heparin Sodium (Porcine) 5,000 unit Q12HR SQ Last administered on 08/15/17 19: 54; Start 08/13/17 at 21:00 Active Scripts Active Reported Clozapine 100 Mg Tablet 150 Mg PO QHS Zoloft (Sertraline Hcl) 25 Mg Tablet 25 Mg PO DAILY Niaspan (Niacin) 500 Mg Tab.er.24h 500 Mg PO QHS Omeprazole 20 Mg Tablet.dr 20 Mg PO DAILYAC Levothyroxine Sodium 150 Mcg Tablet 150 Mcg PO DAILYAC Tylenol (Acetaminophen) 325 Mg Tablet 650 Mg PO BID Benztropine Mesylate 1 Mg Tablet 1 Mg PO BID Multivitamins (Multivitamin) 1 Each Tablet 1 Each PO DAILY Meloxicam 7.5 Mg Tablet 7.5 Mg PO DAILY Clozapine 100 Mg Tablet 100 Mg PO DAILY Metamucil Powder (Psyllium Seed/Aspartame) 283 Gm Powder 1 Packet PO DAILY Tylenol (Acetaminophen) 325 Mg Tablet 650 Mg PO PRN Q4HRS PRN Polyethylene Glycol 3350 2,500 Gm Powder 17 Gm PO DAILY Aspirin 81 Mg Tab.chew 1 Tab PO DAILY Depakote Er (Divalproex Sodium) 500 Mg Tab.er.24h 1,000 Mg PO QHS Metformin Hcl Er (Metformin Hcl) 500 Mg Tab.er.24h 1,000 Mg PO DAILYWSUP Milk Of Magnesia (Magnesium Hydroxide) 400 Mg/5 Ml Oral.susp 30 Ml PO PRN BID PRN Almacone Liquid (Mag Hydrox/Al Hydrox/Simeth) 355 Ml Oral.susp 30 Ml PO PRN Q6HRS PRN I have reviewed the current psychotropics carefully including drug interactions. Risk benefit ratio favors no change other than as noted in my dictated progress note. Diagnosis: Problems: (1) Anxiety disorder (2) Impulse control disorder (3) Schizoaffective disorder (4) Schizoaffective disorder, chronic condition with acute exacerbation (5) Borderline intellectual disability GEORGE REYNOLDS MD Aug 15, 2017 20:07
--- NOTE | 2017-08-16 05:06 | HP ---
ADMIT DATE: This is a late entry for date of service 08/13/2017. IDENTIFYING DATA: The patient is a 57-year-old female referred back to us from [facility] by Dr. Patrick Robles, her primary care physician and Dr. Austin, psychiatrist on account of increased agitation, paranoia, refusing medications within the context of her diagnosis of intellectual disability and schizoaffective disorder, bipolar type. The patient has been extremely paranoid, believes people are trying to shoot her and steal her money, refusing her medications with worsening psychotic symptoms, refusing vital signs and said she would "knock the shit out of her." The patient has failed outpatient psychiatric interventions resulting in this referral. CHIEF COMPLAINT: "Don't ask me these questions." The patient is quite defensive, paranoid, somewhat withdrawn. HISTORY OF PRESENT ILLNESS: The patient has a history of intellectual disability, schizoaffective disorder, bipolar type versus schizophrenia, chronic paranoid. She also is status post CVA, hypothyroidism with right-sided weakness consequent to the CVA. More recently, she has been getting increasingly psychotic, paranoid, agitated, refusing a treatment, which is worsening her presentation and behaviors. She has had sleep and appetite changes. No active suicidal or homicidal ideation. She does have a history of mood swings. The [employer] administrator is her guardian who coordinated this hospitalization on referral from the primary care physician. PAST PSYCHIATRIC HISTORY: As noted above. PAST MEDICAL HISTORY: Positive for hypothyroidism, intellectual disability, iron deficiency anemia, history of leukemia, GERD, overactive bladder, hyperlipidemia, chronic constipation, history of pneumonia, history of recurrent UTIs, right hemiplegia, history of pressure ulcer, right ankle. ALLERGIES: TO CEPHALOSPORIN, PENICILLIN, SULFA AND THIAZIDES. ACCU-CHEKS: DAILY. CODE STATUS: Full code. DIET: Mechanical soft, ambulates in wheelchair. CURRENT PSYCHOTROPICS: Clozaril 100 mg a.m., 150 mg at bedtime; Cogentin 1 mg b.i.d.; Zoloft 25 mg a day; Depakote ER 1000 mg p.o. at bedtime. Valproic acid level at admission is 12 subtherapeutic, but probably due to noncompliance. FAMILY HISTORY: Noncontributory. SOCIAL HISTORY: No alcohol, drug abuse, physical, sexual or elder abuse history is noted. Not known to be a perpetrator. MENTAL STATUS EXAMINATION: The patient is seen individually evening of 08/13/2017. She is oriented to herself, situation in her wheelchair. Speech moderate latency, often responses monosyllabic. Insight limited, judgment marginal, language function intact. Attention span short. She is quite paranoid, delusional, suspicious, inattentive. No active suicidal or homicidal ideation. This note covers elements not covered in my initial note of 08/13/2017. IMPRESSION: Schizoaffective disorder, bipolar type, with psychotic features. Schizophrenia, chronic paranoid with acute exacerbation; anxiety disorder, unspecified; impulse control disorder, unspecified; intellectual disability. Rest diagnoses as above. PLAN: Admit to Geropsychiatry Unit at [facility]. I will see the patient daily individually from a psychiatric standpoint, medical followup per Dr. Pierre/Dr. Hernandez. Continue current psychotropics, repeat a valproic acid level, adjust to reach a therapeutic level, follows weekly CBCs on the Clozaril, may need to increase Clozaril, make further adjustments post baseline assessment. MAN Ann REYNOLDS MD DR: JAQUELIN/radha JOB#: [id number] / [id number]
[2017-08-16] MEDS: LEVOTHYROXINE 150 MCG TABLET PO SCH ×2 (06:00→06:03)
[2017-08-16 06:01] VITALS: BP 155/83
[2017-08-16 07:49] LABS: BASO # 0.1 x10^3/uL (0.0-0.2); BASO % 0 % (0-3); EOS # 0.2 x10^3/uL (0.0-0.7); EOS % 0 % (0-3); HEMOGLOBIN 13.3 g/dL (12.0-15.5); LYMPH # 59.6 x10^3/uL (1.0-4.8); LYMPH % 89 % (24-48); MEAN CORPUSCULAR HEMOGLOBIN 34 pg (25-35); MEAN CORPUSCULAR HGB CONC 33 g/dL (31-37); MEAN CORPUSCULAR VOLUME 103 fL (79-100); MONO # 1.7 x10^3/uL (0.0-1.1); MONO % 3 % (0-9); NEUT # 5.5 x10^3uL (1.8-7.7); NEUT % 8 % (31-73); PLATELET COUNT 268 x10^3/uL (140-400); RED BLOOD COUNT 3.98 x10^6/uL (3.50-5.40); RED CELL DISTRIBUTION WIDTH 13.4 % (11.5-14.5)
[2017-08-16 07:54] LABS: WHITE BLOOD COUNT 67.1 x10^3/uL (4.0-11.0)
[2017-08-16 07:58] LABS: ALBUMIN 3.8 g/dL (3.4-5.0); ALK PHOS 127 U/L (46-116); ALT (SGPT) 47 U/L (14-59); ANION GAP 10 (6-14); AST (SGOT) 10 U/L (15-37); BLOOD UREA NITROGEN 14 mg/dL (7-20); BUN/CREATININE RATIO 18 (6-20); CALCIUM 9.3 mg/dL (8.5-10.1); CARBON DIOXIDE 30 mmol/L (21-32); CHLORIDE 105 mmol/L (98-107); CREATININE 0.8 mg/dL (0.6-1.0); GFR 73.4; GLUCOSE 130 mg/dL (70-99); POTASSIUM 4.3 mmol/L (3.5-5.1); SODIUM 145 mmol/L (136-145); TOTAL BILIRUBIN 0.2 mg/dL (0.2-1.0); TOTAL PROTEIN 7.8 g/dL (6.4-8.2)
[2017-08-16 08:03] LABS: VAL ACID 28 mcg/mL (50-100)
[2017-08-16] MEDS: POLYETHYLENE GLYCOL 3350 17 GM PACKET. PO SCH ×2 (09:00→09:32)
[2017-08-16] MEDS: PSYLLIUM SEED (WITH SUGAR) PACKET. PO SCH ×2 (09:00→09:32)
[2017-08-16 09:08] LABS: % BASOS 1 % (0-3); % BLASTS 2 % (0-0); % EOS 1 % (0-5); % LYMPHS 73 % (24-48); % MONOS 5 % (0-10); % SEGS 15 % (35-66)
[2017-08-16 09:12] LABS: PLT ESTIMATE ADEQUATE (ADEQUATE)
[2017-08-16 09:13] LABS: SMUDGE CELLS PRESENT
[2017-08-16] MEDS: ASPIRIN 81 MG TAB.CHEW PO SCH (09:31)
[2017-08-16] MEDS: cloZAPine 100 MG TABLET PO SCH (09:31)
[2017-08-16] MEDS: MELOXICAM 7.5 MG TABLET PO SCH (09:31)
[2017-08-16] MEDS: PANTOPRAZOLE 40 MG TABLET. PO SCH (09:31)
[2017-08-16] MEDS: SERTRALINE 25 MG TABLET. PO SCH (09:31)
[2017-08-16] MEDS: BENZTROPINE MESYLATE 1 MG TABLET PO SCH ×3 (09:31→21:00)
[2017-08-16] MEDS: ACETAMINOPHEN 325 MG TABLET PO SCH ×3 (09:32→21:00)
[2017-08-16] MEDS: HEPARIN PF for SUB-Q USE 5,000 UNIT/0.5 ML VIAL. SQ SCH ×2 (09:39→19:34)
[2017-08-16] MEDS: NICOTINE 14MG PATCH. TD SCH (09:43)
[2017-08-16 15:53] VITALS: BP 120/79
[2017-08-16] MEDS: metFORMIN XR 500 MG TAB.ER.24H PO SCH (16:53)
[2017-08-16] MEDS: NIACIN ER 500 MG TABLET.ER PO SCH ×2 (19:23→21:00)
[2017-08-16] MEDS: DIVALPROEX ER 500 MG TAB.ER.24H PO SCH ×2 (19:24→21:00)
--- NOTE | 2017-08-16 19:57 | PDOC ---
Exam Note: Andrew Note: Please also refer to the separate dictated note~for this date of service dictated separately.~Patient seen individually. Discussed the patient with Nursing staff reviewed the chart.~Reviewed interim history and current functioning. Reviewed vital signs,~Labs/ Radiology~and current medications noted below. Continue current treatment with the changes noted in the dictated addendum note Assessment: Vital Signs: Vital Signs Date Time Temp Pulse Resp B/P (MAP) Pulse Ox O2 Delivery O2 Flow Rate FiO2 08/16/17 15:53 98.0 60 16 120/79 (93) 97 Room Air I&O Intake and Output 08/16/17 07:00 Intake Total 1120 ml Balance 1120 ml Intake Oral 1120 ml Labs: Laboratory Tests Test 08/16/17 07:16 08/16/17 07:21 Glucose (Fingerstick) 128 mg/dL (70-99) H White Blood Count 67.1 x10^3/uL (4.0-11.0) *H Red Blood Count 3.98 x10^6/uL (3.50-5.40) Hemoglobin 13.3 g/dL (12.0-15.5) Hematocrit 41.0 % (36.0-47.0) Mean Corpuscular Volume 103 fL (79-100) H Mean Corpuscular Hemoglobin 34 pg (25-35) Mean Corpuscular Hemoglobin Concent 33 g/dL (31-37) Red Cell Distribution Width 13.4 % (11.5-14.5) Platelet Count 268 x10^3/uL (140-400) Neutrophils (%) (Auto) 8 % (31-73) L Lymphocytes (%) (Auto) 89 % (24-48) H Monocytes (%) (Auto) 3 % (0-9) Eosinophils (%) (Auto) 0 % (0-3) Basophils (%) (Auto) 0 % (0-3) Neutrophils # (Auto) 5.5 x10^3uL (1.8-7.7) Lymphocytes # (Auto) 59.6 x10^3/uL (1.0-4.8) H Monocytes # (Auto) 1.7 x10^3/uL (0.0-1.1) H Eosinophils # (Auto) 0.2 x10^3/uL (0.0-0.7) Basophils # (Auto) 0.1 x10^3/uL (0.0-0.2) Segmented Neutrophils % 15 % (35-66) L Lymphocytes % 73 % (24-48) H Monocytes % 5 % (0-10) Eosinophils % 1 % (0-5) Basophils % 1 % (0-3) Blast Cells % (Manual) 2 % (0-0) H Smudge Cells Present Platelet Estimate Adequate (ADEQUATE) Sodium Level 145 mmol/L (136-145) Potassium Level 4.3 mmol/L (3.5-5.1) Chloride Level 105 mmol/L (98-107) Carbon Dioxide Level 30 mmol/L (21-32) Anion Gap 10 (6-14) Blood Urea Nitrogen 14 mg/dL (7-20) Creatinine 0.8 mg/dL (0.6-1.0) Estimated GFR (Cockcroft-Gault) 73.4 BUN/Creatinine Ratio 18 (6-20) Glucose Level 130 mg/dL (70-99) H Calcium Level 9.3 mg/dL (8.5-10.1) Total Bilirubin 0.2 mg/dL (0.2-1.0) Aspartate Amino Transferase (AST) 10 U/L (15-37) L Alanine Aminotransferase (ALT) 47 U/L (14-59) Alkaline Phosphatase 127 U/L (46-116) H Total Protein 7.8 g/dL (6.4-8.2) Albumin 3.8 g/dL (3.4-5.0) Albumin/Globulin Ratio 1.0 (1.0-1.7) Valproic Acid Level 28 mcg/mL (50-100) L Valproic Acid Last Dose Date 08/15/17 Valproic Acid Last Dose Time 2100 Current Medications: Meds: Current Medications Benztropine Mesylate (Cogentin) 1 mg BID PO Last administered on 08/16/17at 19: 24; Start 08/13/17 at 09:00 Clozapine (Clozaril) 100 mg DAILY PO Last administered on 08/16/17at 09:31; Start 08/13/17 at 09:00; Stop 08/16/17 at 17:55; Status DC Clozapine (Clozaril) 150 mg QHS PO Last administered on 08/15/17at 19:52; Start 08/13/17 at 21:00; Stop 08/16/17 at 17:55; Status DC Divalproex Sodium (Depakote Er) 1,000 mg QHS PO Last administered on 08/16/17at 19:24; Start 08/13/17 at 21:00 Sertraline HCl (Zoloft) 25 mg DAILY PO Last administered on 08/16/17at 09:31; Start 08/13/17 at 09:00 Acetaminophen (Tylenol) 650 mg PRN Q6HRS PRN PO PAIN / TEMP; Start 08/12/17 at 21:15 Multi-Ingredient Ointment (Analgesic [place]) 1 glenny PRN QID PRN TP MUSCLE PAIN; Start 08/12/17 at 21:15 Al Hydroxide/Mg Hydroxide (Mylanta Plus Xs) 15 ml PRN AFTMEALHC PRN PO DYSPEPSIA; Start 08/12/17 at 21:15; Stop 08/13/17 at 17:19; Status DC Magnesium Hydroxide (Milk Of Magnesia) 2,400 mg PRN QHS PRN PO CONSTIPATION; Start 08/12/17 at 21:15; Stop 08/13/17 at 17:19; Status DC Nicotine (Nicoderm Cq 14mg) 1 patch DAILY TD Last administered on 08/16/17at 09: 43; Start 08/13/17 at 09:00 Acetaminophen (Tylenol) 650 mg BID PO Last administered on 08/16/17at 19:24; Start 08/13/17 at 09:00 Acetaminophen (Tylenol) 650 mg PRN Q4HRS PRN PO PAIN / TEMP; Start 08/12/17 at 23:00; Stop 08/13/17 at 12:14; Status DC Aspirin (Children'S Aspirin) 81 mg DAILY PO Last administered on 08/16/17at 09: 31; Start 08/13/17 at 09:00 Levothyroxine Sodium (Synthroid) 150 mcg DAILY06 PO Last administered on at 05:34; Start 08/13/17 at 06:00 Meloxicam (Mobic) 7.5 mg DAILY PO Last administered on 08/16/17at 09:31; Start 08/13/17 at 09:00 Metformin HCl (Glucophage Xr) 1,000 mg DAILYWSUP PO Last administered on at 16:53; Start 08/13/17 at 17:00 Niacin (Slo-Niacin) 500 mg QHS PO Last administered on 08/16/17at 19:23; Start 08/13/17 at 21:00 Pantoprazole Sodium (Protonix) 40 mg DAILYAC PO Last administered on 08/16/17at 09:31; Start 08/13/17 at 07:30 Polyethylene Glycol (miraLAX) 17 gm DAILY PO Last administered on 08/15/17at 08: 02; Start 08/13/17 at 09:00 Psyllium Hydrophilic Mucilloid (Metamucil) 1 pkt DAILY PO Last administered on 08/15/17at 08:02; Start 08/13/17 at 09:00 Heparin Sodium (Porcine) 5,000 unit Q12HR SQ Last administered on 08/16/17at 19: 34; Start 08/13/17 at 21:00 Clozapine (Clozaril) 250 mg DAILY PO ; Start 08/17/17 at 09:00 Active Scripts Active Reported Clozapine 100 Mg Tablet 150 Mg PO QHS Zoloft (Sertraline Hcl) 25 Mg Tablet 25 Mg PO DAILY Niaspan (Niacin) 500 Mg Tab.er.24h 500 Mg PO QHS Omeprazole 20 Mg Tablet.dr 20 Mg PO DAILYAC Levothyroxine Sodium 150 Mcg Tablet 150 Mcg PO DAILYAC Tylenol (Acetaminophen) 325 Mg Tablet 650 Mg PO BID Benztropine Mesylate 1 Mg Tablet 1 Mg PO BID Multivitamins (Multivitamin) 1 Each Tablet 1 Each PO DAILY Meloxicam 7.5 Mg Tablet 7.5 Mg PO DAILY Clozapine 100 Mg Tablet 100 Mg PO DAILY Metamucil Powder (Psyllium Seed/Aspartame) 283 Gm Powder 1 Packet PO DAILY Tylenol (Acetaminophen) 325 Mg Tablet 650 Mg PO PRN Q4HRS PRN Polyethylene Glycol 3350 2,500 Gm Powder 17 Gm PO DAILY Aspirin 81 Mg Tab.chew 1 Tab PO DAILY Depakote Er (Divalproex Sodium) 500 Mg Tab.er.24h 1,000 Mg PO QHS Metformin Hcl Er (Metformin Hcl) 500 Mg Tab.er.24h 1,000 Mg PO DAILYWSUP Milk Of Magnesia (Magnesium Hydroxide) 400 Mg/5 Ml Oral.susp 30 Ml PO PRN BID PRN Almacone Liquid (Mag Hydrox/Al Hydrox/Simeth) 355 Ml Oral.susp 30 Ml PO PRN Q6HRS PRN I have reviewed the current psychotropics carefully including drug interactions. Risk benefit ratio favors no change other than as noted in my dictated progress note. Diagnosis: Problems: (1) Anxiety disorder (2) Impulse control disorder (3) Schizoaffective disorder (4) Schizoaffective disorder, chronic condition with acute exacerbation (5) Borderline intellectual disability GEORGE REYNOLDS MD Aug 16, 2017 19:57
--- NOTE | 2017-08-17 03:34 | PN ---
DATE: 08/15/2017 This late entry 08/15/2017 covers elements not covered in my initial note 08/15/2017. HISTORY: Met with the patient evening of 08/15/2017. The patient slept 6-1/4 hours previous evening. She has done little better on 08/15/2017 as compared to the day earlier. Still irritable, resistive to a.m. medications, took it later in orange juice, more polite, however. REVIEW OF SYSTEMS: Ambulation impaired, in wheelchair. No CV, , pulmonary, eye system symptoms on review, not very verbal. MENTAL STATUS EXAM: Oriented to herself and situation. Speech, often responses monosyllabic. Abstraction fair, computation impaired, language function intact. Mood and affect somewhat withdrawn, still paranoid, psychotic. LABORATORY DATA: Reviewed. IMPRESSION: Schizoaffective disorder, bipolar type, mixed with psychotic features versus bipolar 1 disorder, mixed with psychotic features, intellectual disability. Rest unchanged. PLAN: Continue current psychotropics including Clozaril, Depakote, Cogentin, Zoloft. Check CBC, CMP, valproic acid level 08/16/2017, then adjust Depakote to reach a therapeutic level. MAN Ann REYNOLDS MD DR: JAQUELIN/radha JOB#: [id number] / [id number]
[2017-08-17 05:52] VITALS: BP 105/69
[2017-08-17] MEDS: LEVOTHYROXINE 150 MCG TABLET PO SCH (05:59)
[2017-08-17] MEDS: SERTRALINE 25 MG TABLET. PO SCH (07:43)
[2017-08-17] MEDS: ASPIRIN 81 MG TAB.CHEW PO SCH (07:43)
[2017-08-17] MEDS: PANTOPRAZOLE 40 MG TABLET. PO SCH (07:43)
[2017-08-17] MEDS: BENZTROPINE MESYLATE 1 MG TABLET PO SCH ×2 (07:43→19:59)
[2017-08-17] MEDS: NICOTINE 14MG PATCH. TD SCH (07:44)
[2017-08-17] MEDS: POLYETHYLENE GLYCOL 3350 17 GM PACKET. PO SCH (07:44)
[2017-08-17] MEDS: ACETAMINOPHEN 325 MG TABLET PO SCH ×2 (07:44→19:59)
[2017-08-17] MEDS: MELOXICAM 7.5 MG TABLET PO SCH (07:44)
[2017-08-17] MEDS: PSYLLIUM SEED (WITH SUGAR) PACKET. PO SCH (07:44)
[2017-08-17] MEDS: cloZAPine 100 MG TABLET PO SCH (07:47)
[2017-08-17] MEDS: HEPARIN PF for SUB-Q USE 5,000 UNIT/0.5 ML VIAL. SQ SCH ×2 (07:50→20:02)
--- NOTE | 2017-08-17 10:28 | PN ---
DATE: 08/14/2017 PSYCHIATRIC PROGRESS NOTE This is a late entry. Date of service, 08/14/2017 and covers elements not covered in my initial note on 08/14/2017. Met with the patient on the evening of 08/14/2017. She remains psychotic, somewhat paranoid, resistive to interventions and refusing medications. She is somewhat childlike per nursing report. REVIEW OF SYSTEMS: Ambulation impaired, in wheelchair. No CV, , pulmonary, eye, ENT system symptoms on review. She sometimes takes her medications and coffee. Reliability poor. MENTAL STATUS EXAM: Oriented to herself and situation. Speech has some latency, often responses, monosyllabic, coherent. Abstraction fair, computation impaired, language function intact. Mood and affect somewhat withdrawn. LABORATORY DATA: Reviewed. CBC, CMP, valproic acid level are due on 08/16/2017. IMPRESSION: Unchanged from initial note. Schizoaffective disorder, bipolar type, mixed with psychotic features; bipolar 1 disorder, mixed with psychotic features. Rest unchanged from initial note. PLAN: Continue Clozaril, Cogentin, Zoloft, Depakote at current dosage. Check a valproic acid level. Adjust further as clinically indicated. Consider Depo IM preparation only if needed due to med noncompliance. GEORGE REYNOLDS MD DR: JAQUELIN/radha JOB#: [id number] / [id number]
[2017-08-17 15:56] VITALS: BP 168/94
[2017-08-17] MEDS: metFORMIN XR 500 MG TAB.ER.24H PO SCH (16:59)
[2017-08-17] MEDS: DIVALPROEX ER 500 MG TAB.ER.24H PO SCH (19:59)
[2017-08-17] MEDS: NIACIN ER 500 MG TABLET.ER PO SCH (20:00)
--- NOTE | 2017-08-17 20:13 | PDOC ---
Exam Note: Andrew Note: Please also refer to the separate dictated note~for this date of service dictated separately.~Patient seen individually. Discussed the patient with Nursing staff reviewed the chart.~Reviewed interim history and current functioning. Reviewed vital signs,~Labs/ Radiology~and current medications noted below. Continue current treatment with the changes noted in the dictated addendum note Assessment: Vital Signs: Vital Signs Date Time Temp Pulse Resp B/P (MAP) Pulse Ox O2 Delivery O2 Flow Rate FiO2 08/17/17 15:56 97.6 96 18 168/94 (118) 96 Room Air I&O Intake and Output 08/17/17 07:00 Intake Total 720 ml Balance 720 ml Intake Oral 720 ml Labs: Laboratory Tests Test 08/17/17 07:26 Glucose (Fingerstick) 108 mg/dL (70-99) H Current Medications: Meds: Current Medications Benztropine Mesylate (Cogentin) 1 mg BID PO Last administered on 08/17/17at 19: 59; Start 08/13/17 at 09:00 Clozapine (Clozaril) 100 mg DAILY PO Last administered on 08/16/17at 09:31; Start 08/13/17 at 09:00; Stop 08/16/17 at 17:55; Status DC Clozapine (Clozaril) 150 mg QHS PO Last administered on 08/15/17at 19:52; Start 08/13/17 at 21:00; Stop 08/16/17 at 17:55; Status DC Divalproex Sodium (Depakote Er) 1,000 mg QHS PO Last administered on 08/17/17at 19:59; Start 08/13/17 at 21:00 Sertraline HCl (Zoloft) 25 mg DAILY PO Last administered on 08/17/17at 07:43; Start 08/13/17 at 09:00 Acetaminophen (Tylenol) 650 mg PRN Q6HRS PRN PO PAIN / TEMP; Start 08/12/17 at 21:15 Multi-Ingredient Ointment (Analgesic [place]) 1 glenny PRN QID PRN TP MUSCLE PAIN; Start 08/12/17 at 21:15 Al Hydroxide/Mg Hydroxide (Mylanta Plus Xs) 15 ml PRN AFTMEALHC PRN PO DYSPEPSIA; Start 08/12/17 at 21:15; Stop 08/13/17 at 17:19; Status DC Magnesium Hydroxide (Milk Of Magnesia) 2,400 mg PRN QHS PRN PO CONSTIPATION; Start 08/12/17 at 21:15; Stop 08/13/17 at 17:19; Status DC Nicotine (Nicoderm Cq 14mg) 1 patch DAILY TD Last administered on 08/17/17at 07: 44; Start 08/13/17 at 09:00 Acetaminophen (Tylenol) 650 mg BID PO Last administered on 08/17/17at 19:59; Start 08/13/17 at 09:00 Acetaminophen (Tylenol) 650 mg PRN Q4HRS PRN PO PAIN / TEMP; Start 08/12/17 at 23:00; Stop 08/13/17 at 12:14; Status DC Aspirin (Children'S Aspirin) 81 mg DAILY PO Last administered on 08/17/17at 07: 43; Start 08/13/17 at 09:00 Levothyroxine Sodium (Synthroid) 150 mcg DAILY06 PO Last administered on at 05:59; Start 08/13/17 at 06:00 Meloxicam (Mobic) 7.5 mg DAILY PO Last administered on 08/17/17 07:44; Start 08/13/17 at 09:00 Metformin HCl (Glucophage Xr) 1,000 mg DAILYWSUP PO Last administered on at 16:59; Start 08/13/17 at 17:00 Niacin (Slo-Niacin) 500 mg QHS PO Last administered on 08/17/17at 20:00; Start 08/13/17 at 21:00 Pantoprazole Sodium (Protonix) 40 mg DAILYAC PO Last administered on 08/17/17at 07:43; Start 08/13/17 at 07:30 Polyethylene Glycol (miraLAX) 17 gm DAILY PO Last administered on 08/17/17at 07: 44; Start 08/13/17 at 09:00 Psyllium Hydrophilic Mucilloid (Metamucil) 1 pkt DAILY PO Last administered on 08/17/17 07:44; Start 08/13/17 at 09:00 Heparin Sodium (Porcine) 5,000 unit Q12HR SQ Last administered on 08/17/17at 20: 02; Start 08/13/17 at 21:00 Clozapine (Clozaril) 250 mg DAILY PO Last administered on 08/17/17at 07:47; Start 08/17/17 at 09:00 Active Scripts Active Reported Clozapine 100 Mg Tablet 150 Mg PO QHS Zoloft (Sertraline Hcl) 25 Mg Tablet 25 Mg PO DAILY Niaspan (Niacin) 500 Mg Tab.er.24h 500 Mg PO QHS Omeprazole 20 Mg Tablet.dr 20 Mg PO DAILYAC Levothyroxine Sodium 150 Mcg Tablet 150 Mcg PO DAILYAC Tylenol (Acetaminophen) 325 Mg Tablet 650 Mg PO BID Benztropine Mesylate 1 Mg Tablet 1 Mg PO BID Multivitamins (Multivitamin) 1 Each Tablet 1 Each PO DAILY Meloxicam 7.5 Mg Tablet 7.5 Mg PO DAILY Clozapine 100 Mg Tablet 100 Mg PO DAILY Metamucil Powder (Psyllium Seed/Aspartame) 283 Gm Powder 1 Packet PO DAILY Tylenol (Acetaminophen) 325 Mg Tablet 650 Mg PO PRN Q4HRS PRN Polyethylene Glycol 3350 2,500 Gm Powder 17 Gm PO DAILY Aspirin 81 Mg Tab.chew 1 Tab PO DAILY Depakote Er (Divalproex Sodium) 500 Mg Tab.er.24h 1,000 Mg PO QHS Metformin Hcl Er (Metformin Hcl) 500 Mg Tab.er.24h 1,000 Mg PO DAILYWSUP Milk Of Magnesia (Magnesium Hydroxide) 400 Mg/5 Ml Oral.susp 30 Ml PO PRN BID PRN Almacone Liquid (Mag Hydrox/Al Hydrox/Simeth) 355 Ml Oral.susp 30 Ml PO PRN Q6HRS PRN I have reviewed the current psychotropics carefully including drug interactions. Risk benefit ratio favors no change other than as noted in my dictated progress note. Diagnosis: Problems: (1) Anxiety disorder (2) Impulse control disorder (3) Schizoaffective disorder (4) Schizoaffective disorder, chronic condition with acute exacerbation (5) Borderline intellectual disability GEORGE REYNOLDS MD Aug 17, 2017 20:13
[2017-08-18 05:44] VITALS: BP 134/66
[2017-08-18] MEDS: LEVOTHYROXINE 150 MCG TABLET PO SCH ×2 (06:10→07:34)
[2017-08-18] MEDS: PANTOPRAZOLE 40 MG TABLET. PO SCH (07:34)
[2017-08-18] MEDS: ACETAMINOPHEN 325 MG TABLET PO SCH ×2 (07:48→21:00)
[2017-08-18] MEDS: MELOXICAM 7.5 MG TABLET PO SCH (07:48)
[2017-08-18] MEDS: BENZTROPINE MESYLATE 1 MG TABLET PO SCH ×2 (07:49→21:00)
[2017-08-18] MEDS: SERTRALINE 25 MG TABLET. PO SCH (07:49)
[2017-08-18] MEDS: ASPIRIN 81 MG TAB.CHEW PO SCH (07:49)
[2017-08-18] MEDS: NICOTINE 14MG PATCH. TD SCH (07:50)
[2017-08-18] MEDS: cloZAPine 100 MG TABLET PO SCH (07:50)
[2017-08-18] MEDS: POLYETHYLENE GLYCOL 3350 17 GM PACKET. PO SCH (07:50)
[2017-08-18] MEDS: PSYLLIUM SEED (WITH SUGAR) PACKET. PO SCH (09:20)
[2017-08-18] MEDS: HEPARIN PF for SUB-Q USE 5,000 UNIT/0.5 ML VIAL. SQ SCH (09:23)
[2017-08-18 16:11] VITALS: BP 109/67
[2017-08-18] MEDS: metFORMIN XR 500 MG TAB.ER.24H PO SCH (17:16)
--- NOTE | 2017-08-18 20:10 | PDOC ---
Exam Note: Andrew Note: Please also refer to the separate dictated note~for this date of service dictated separately.~Patient seen individually. Discussed the patient with Nursing staff reviewed the chart.~Reviewed interim history and current functioning. Reviewed vital signs,~Labs/ Radiology~and current medications noted below. Continue current treatment with the changes noted in the dictated addendum note Assessment: Vital Signs: Vital Signs Date Time Temp Pulse Resp B/P (MAP) Pulse Ox O2 Delivery O2 Flow Rate FiO2 08/18/17 16:11 97.7 82 20 109/67 (81) 97 Room Air I&O Intake and Output 08/18/17 07:00 Intake Total 960 ml Balance 960 ml Intake Oral 960 ml # Bowel Movements 1 Labs: Laboratory Tests Test 08/18/17 07:39 Glucose (Fingerstick) 131 mg/dL (70-99) H Current Medications: Meds: Current Medications Benztropine Mesylate (Cogentin) 1 mg BID PO Last administered on 08/18/17at 07: 49; Start 08/13/17 at 09:00; Stop 08/19/17 at 09:00 Clozapine (Clozaril) 100 mg DAILY PO Last administered on 08/16/17at 09:31; Start 08/13/17 at 09:00; Stop 08/16/17 at 17:55; Status DC Clozapine (Clozaril) 150 mg QHS PO Last administered on 08/15/17at 19:52; Start 08/13/17 at 21:00; Stop 08/16/17 at 17:55; Status DC Divalproex Sodium (Depakote Er) 1,000 mg QHS PO Last administered on 08/17/17at 19:59; Start 08/13/17 at 21:00; Stop 08/18/17 at 19:25; Status DC Sertraline HCl (Zoloft) 25 mg DAILY PO Last administered on 08/18/17at 07:49; Start 08/13/17 at 09:00 Acetaminophen (Tylenol) 650 mg PRN Q6HRS PRN PO PAIN / TEMP; Start 08/12/17 at 21:15 Multi-Ingredient Ointment (Analgesic [place]) 1 glenny PRN QID PRN TP MUSCLE PAIN; Start 08/12/17 at 21:15 Al Hydroxide/Mg Hydroxide (Mylanta Plus Xs) 15 ml PRN AFTMEALHC PRN PO DYSPEPSIA; Start 08/12/17 at 21:15; Stop 08/13/17 at 17:19; Status DC Magnesium Hydroxide (Milk Of Magnesia) 2,400 mg PRN QHS PRN PO CONSTIPATION; Start 08/12/17 at 21:15; Stop 08/13/17 at 17:19; Status DC Nicotine (Nicoderm Cq 14mg) 1 patch DAILY TD Last administered on 08/18/17at 07: 50; Start 08/13/17 at 09:00 Acetaminophen (Tylenol) 650 mg BID PO Last administered on 08/18/17at 07:48; Start 08/13/17 at 09:00 Acetaminophen (Tylenol) 650 mg PRN Q4HRS PRN PO PAIN / TEMP; Start 08/12/17 at 23:00; Stop 08/13/17 at 12:14; Status DC Aspirin (Children'S Aspirin) 81 mg DAILY PO Last administered on 08/18/17at 07: 49; Start 08/13/17 at 09:00 Levothyroxine Sodium (Synthroid) 150 mcg DAILY06 PO Last administered on at 07:34; Start 08/13/17 at 06:00 Meloxicam (Mobic) 7.5 mg DAILY PO Last administered on 08/18/17at 07:48; Start 08/13/17 at 09:00 Metformin HCl (Glucophage Xr) 1,000 mg DAILYWSUP PO Last administered on at 17:16; Start 08/13/17 at 17:00 Niacin (Slo-Niacin) 500 mg QHS PO Last administered on 08/17/17at 20:00; Start 08/13/17 at 21:00 Pantoprazole Sodium (Protonix) 40 mg DAILYAC PO Last administered on 08/18/17at 07:34; Start 08/13/17 at 07:30 Polyethylene Glycol (miraLAX) 17 gm DAILY PO Last administered on 08/18/17at 07: 50; Start 08/13/17 at 09:00 Psyllium Hydrophilic Mucilloid (Metamucil) 1 pkt DAILY PO Last administered on 08/18/17at 09:20; Start 08/13/17 at 09:00 Heparin Sodium (Porcine) 5,000 unit Q12HR SQ Last administered on 08/18/17at 09: 23; Start 08/13/17 at 21:00 Clozapine (Clozaril) 250 mg DAILY PO Last administered on 08/18/17at 07:50; Start 08/17/17 at 09:00 Benztropine Mesylate (Cogentin) 1 mg QHS PO ; Start 08/19/17 at 21:00 Divalproex Sodium (Depakote Er) 1,500 mg QHS PO ; Start 08/18/17 at 21:00 Active Scripts Active Reported Clozapine 100 Mg Tablet 150 Mg PO QHS Zoloft (Sertraline Hcl) 25 Mg Tablet 25 Mg PO DAILY Niaspan (Niacin) 500 Mg Tab.er.24h 500 Mg PO QHS Omeprazole 20 Mg Tablet.dr 20 Mg PO DAILYAC Levothyroxine Sodium 150 Mcg Tablet 150 Mcg PO DAILYAC Tylenol (Acetaminophen) 325 Mg Tablet 650 Mg PO BID Benztropine Mesylate 1 Mg Tablet 1 Mg PO BID Multivitamins (Multivitamin) 1 Each Tablet 1 Each PO DAILY Meloxicam 7.5 Mg Tablet 7.5 Mg PO DAILY Clozapine 100 Mg Tablet 100 Mg PO DAILY Metamucil Powder (Psyllium Seed/Aspartame) 283 Gm Powder 1 Packet PO DAILY Tylenol (Acetaminophen) 325 Mg Tablet 650 Mg PO PRN Q4HRS PRN Polyethylene Glycol 3350 2,500 Gm Powder 17 Gm PO DAILY Aspirin 81 Mg Tab.chew 1 Tab PO DAILY Depakote Er (Divalproex Sodium) 500 Mg Tab.er.24h 1,000 Mg PO QHS Metformin Hcl Er (Metformin Hcl) 500 Mg Tab.er.24h 1,000 Mg PO DAILYWSUP Milk Of Magnesia (Magnesium Hydroxide) 400 Mg/5 Ml Oral.susp 30 Ml PO PRN BID PRN Almacone Liquid (Mag Hydrox/Al Hydrox/Simeth) 355 Ml Oral.susp 30 Ml PO PRN Q6HRS PRN I have reviewed the current psychotropics carefully including drug interactions. Risk benefit ratio favors no change other than as noted in my dictated progress note. Diagnosis: Problems: (1) Anxiety disorder (2) Impulse control disorder (3) Schizoaffective disorder (4) Schizoaffective disorder, chronic condition with acute exacerbation (5) Borderline intellectual disability GEORGE REYNOLDS MD Aug 18, 2017 20:10
[2017-08-18] MEDS: DIVALPROEX ER 500 MG TAB.ER.24H PO SCH (20:40)
[2017-08-18] MEDS: NIACIN ER 500 MG TABLET.ER PO SCH (20:40)
[2017-08-19] MEDS: HEPARIN PF for SUB-Q USE 5,000 UNIT/0.5 ML VIAL. SQ SCH ×4 (00:38→20:01)
--- NOTE | 2017-08-19 03:56 | PN ---
DATE: 08/16/2017 This late entry 08/16/2017 covers elements not covered in the initial note 08/16/2017. I met with the patient in the evening of 08/16/2017. The patient has been quite withdrawn, refused her medications previous evening other than heparin. She slept 5-1/2 hours, irritable during the day on 08/16/2017, yelling at times, refusing medication, refused dinner. CBC, elevated white cell count consequent to her leukemia. REVIEW OF SYSTEMS: Ambulation impaired, in wheelchair. No CV, , pulmonary, eye system symptoms on review, not very verbally forthcoming. MENTAL STATUS EXAM: Oriented to herself and situation. Speech, often responses monosyllabic. Abstraction fair, computation impaired, language function intact. Short term memory is impaired. Mood and affect somewhat withdrawn. No active suicidal or homicidal ideation. Appears paranoid. LABORATORY DATA: Reviewed. IMPRESSION: Unchanged from initial note schizoaffective disorder, bipolar type, mixed with psychotic features. Rest unchanged. PLAN: To help compliance with her psychotropics, we will change the Clozaril, which is currently 100 mg in the morning and 150 at night, to 250 mg anytime of the day she takes it. Maintain Cogentin, Zoloft, Depakote. Labs are awaited on the valproic acid and at the time of this dictation level is 28. We may need to adjust the Depakote, but I would like to see how she does on Clozaril once she is compliant with it, with the above intervention. GEORGE REYNOLDS MD DR: JAQUELIN/radha JOB#: [id number] / [id number]
[2017-08-19 05:54] VITALS: BP 116/70
--- NOTE | 2017-08-19 11:42 | PN ---
DATE: 08/17/2017 This late entry 08/17/2017 covers elements not covered in my initial note 08/17/2017. SUBJECTIVE: I met with the patient evening of 08/17/2017. The patient was staffed at a treatment team meeting with the entire team morning of 08/17/2017. The patient slept 6 hours previous evening, at night was irritable, resistive to taking her medications, did attend groups in the morning of 08/17/2017, ask to color and then took her medications, which is a positive improvement for her. REVIEW OF SYSTEMS: Ambulation impaired, in wheelchair. No CV, , pulmonary, eye, ENT system symptoms on review, not very verbal, still paranoid. MENTAL STATUS EXAM: Reasonably oriented. Speech, often responses monosyllabic. Abstraction fair, computation impaired, language function intact, attention span short. Mood and affect withdrawn. LABORATORY DATA: Reviewed. IMPRESSION: Schizoaffective disorder, bipolar type, mixed with psychotic features. Rest unchanged. PLAN: Continue Clozaril 250 mg a day and once she has taken this consistently for a day or two if mood lability persists, we may increase the Depakote to reach a therapeutic level since the current level is 28. Continue rest unchanged. GEORGE REYNOLDS MD DR: JAQUELIN/radha JOB#: [id number] / [id number]
[2017-08-19] MEDS: SERTRALINE 25 MG TABLET. PO SCH (11:43)
[2017-08-19] MEDS: cloZAPine 100 MG TABLET PO SCH (11:43)
[2017-08-19] MEDS: PANTOPRAZOLE 40 MG TABLET. PO SCH (11:43)
[2017-08-19] MEDS: ACETAMINOPHEN 325 MG TABLET PO SCH ×2 (11:43→19:58)
[2017-08-19] MEDS: ASPIRIN 81 MG TAB.CHEW PO SCH (11:44)
[2017-08-19] MEDS: BENZTROPINE MESYLATE 1 MG TABLET PO SCH ×2 (11:44→19:59)
[2017-08-19] MEDS: MELOXICAM 7.5 MG TABLET PO SCH (11:44)
[2017-08-19] MEDS: PSYLLIUM SEED (WITH SUGAR) PACKET. PO SCH (11:45)
[2017-08-19] MEDS: POLYETHYLENE GLYCOL 3350 17 GM PACKET. PO SCH (11:45)
[2017-08-19] MEDS: LEVOTHYROXINE 150 MCG TABLET PO SCH (11:47)
[2017-08-19] MEDS: NICOTINE 14MG PATCH. TD SCH (11:47)
[2017-08-19 16:14] VITALS: BP 119/83
[2017-08-19] MEDS: metFORMIN XR 500 MG TAB.ER.24H PO SCH (17:01)
[2017-08-19] MEDS: DIVALPROEX ER 500 MG TAB.ER.24H PO SCH (19:58)
[2017-08-19] MEDS: NIACIN ER 500 MG TABLET.ER PO SCH (19:59)
--- NOTE | 2017-08-19 20:32 | PDOC ---
Exam Note: Andrew Note: Please also refer to the separate dictated note~for this date of service dictated separately.~Patient seen individually. Discussed the patient with Nursing staff reviewed the chart.~Reviewed interim history and current functioning. Reviewed vital signs,~Labs/ Radiology~and current medications noted below. Continue current treatment with the changes noted in the dictated addendum note Assessment: Vital Signs: Vital Signs Date Time Temp Pulse Resp B/P (MAP) Pulse Ox O2 Delivery O2 Flow Rate FiO2 08/19/17 16:14 98.4 88 20 119/83 (95) 94 08/18/17 16:11 Room Air I&O Intake and Output 08/19/17 07:00 Intake Total 1080 ml Balance 1080 ml Intake Oral 1080 ml # Bowel Movements 1 Labs: Laboratory Tests Test 08/19/17 07:39 Glucose (Fingerstick) 112 mg/dL (70-99) H Current Medications: Meds: Current Medications Benztropine Mesylate (Cogentin) 1 mg BID PO Last administered on 08/19/17at 11: 44; Start 08/13/17 at 09:00; Stop 08/19/17 at 09:00; Status DC Clozapine (Clozaril) 100 mg DAILY PO Last administered on 08/16/17at 09:31; Start 08/13/17 at 09:00; Stop 08/16/17 at 17:55; Status DC Clozapine (Clozaril) 150 mg QHS PO Last administered on 08/15/17at 19:52; Start 08/13/17 at 21:00; Stop 08/16/17 at 17:55; Status DC Divalproex Sodium (Depakote Er) 1,000 mg QHS PO Last administered on 08/17/17at 19:59; Start 08/13/17 at 21:00; Stop 08/18/17 at 19:25; Status DC Sertraline HCl (Zoloft) 25 mg DAILY PO Last administered on 08/19/17at 11:43; Start 08/13/17 at 09:00 Acetaminophen (Tylenol) 650 mg PRN Q6HRS PRN PO PAIN / TEMP; Start 08/12/17 at 21:15 Multi-Ingredient Ointment (Analgesic [place]) 1 glenny PRN QID PRN TP MUSCLE PAIN; Start 08/12/17 at 21:15 Al Hydroxide/Mg Hydroxide (Mylanta Plus Xs) 15 ml PRN AFTMEALHC PRN PO DYSPEPSIA; Start 08/12/17 at 21:15; Stop 08/13/17 at 17:19; Status DC Magnesium Hydroxide (Milk Of Magnesia) 2,400 mg PRN QHS PRN PO CONSTIPATION; Start 08/12/17 at 21:15; Stop 08/13/17 at 17:19; Status DC Nicotine (Nicoderm Cq 14mg) 1 patch DAILY TD Last administered on 08/19/17 11: 47; Start 08/13/17 at 09:00 Acetaminophen (Tylenol) 650 mg BID PO Last administered on 08/19/17 19:58; Start 08/13/17 at 09:00 Acetaminophen (Tylenol) 650 mg PRN Q4HRS PRN PO PAIN / TEMP; Start 08/12/17 at 23:00; Stop 08/13/17 at 12:14; Status DC Aspirin (Children'S Aspirin) 81 mg DAILY PO Last administered on 08/19/17 11: 44; Start 08/13/17 at 09:00 Levothyroxine Sodium (Synthroid) 150 mcg DAILY06 PO Last administered on 11:47; Start 08/13/17 at 06:00 Meloxicam (Mobic) 7.5 mg DAILY PO Last administered on 08/19/17 11:44; Start 08/13/17 at 09:00 Metformin HCl (Glucophage Xr) 1,000 mg DAILYWSUP PO Last administered on 17:01; Start 08/13/17 at 17:00 Niacin (Slo-Niacin) 500 mg QHS PO Last administered on 08/19/17 19:59; Start 08/13/17 at 21:00 Pantoprazole Sodium (Protonix) 40 mg DAILYAC PO Last administered on 08/19/17 11:43; Start 08/13/17 at 07:30 Polyethylene Glycol (miraLAX) 17 gm DAILY PO Last administered on 08/19/17 11: 45; Start 08/13/17 at 09:00 Psyllium Hydrophilic Mucilloid (Metamucil) 1 pkt DAILY PO Last administered on 08/19/17 11:45; Start 08/13/17 at 09:00 Heparin Sodium (Porcine) 5,000 unit Q12HR SQ Last administered on 08/19/17at 20: 01; Start 08/13/17 at 21:00 Clozapine (Clozaril) 250 mg DAILY PO Last administered on 08/19/17at 11:43; Start 08/17/17 at 09:00 Benztropine Mesylate (Cogentin) 1 mg QHS PO Last administered on 08/19/17at 19: 59; Start 08/19/17 at 21:00 Divalproex Sodium (Depakote Er) 1,500 mg QHS PO Last administered on 08/19/17at 19:58; Start 08/18/17 at 21:00 Active Scripts Active Reported Clozapine 100 Mg Tablet 150 Mg PO QHS Zoloft (Sertraline Hcl) 25 Mg Tablet 25 Mg PO DAILY Niaspan (Niacin) 500 Mg Tab.er.24h 500 Mg PO QHS Omeprazole 20 Mg Tablet.dr 20 Mg PO DAILYAC Levothyroxine Sodium 150 Mcg Tablet 150 Mcg PO DAILYAC Tylenol (Acetaminophen) 325 Mg Tablet 650 Mg PO BID Benztropine Mesylate 1 Mg Tablet 1 Mg PO BID Multivitamins (Multivitamin) 1 Each Tablet 1 Each PO DAILY Meloxicam 7.5 Mg Tablet 7.5 Mg PO DAILY Clozapine 100 Mg Tablet 100 Mg PO DAILY Metamucil Powder (Psyllium Seed/Aspartame) 283 Gm Powder 1 Packet PO DAILY Tylenol (Acetaminophen) 325 Mg Tablet 650 Mg PO PRN Q4HRS PRN Polyethylene Glycol 3350 2,500 Gm Powder 17 Gm PO DAILY Aspirin 81 Mg Tab.chew 1 Tab PO DAILY Depakote Er (Divalproex Sodium) 500 Mg Tab.er.24h 1,000 Mg PO QHS Metformin Hcl Er (Metformin Hcl) 500 Mg Tab.er.24h 1,000 Mg PO DAILYWSUP Milk Of Magnesia (Magnesium Hydroxide) 400 Mg/5 Ml Oral.susp 30 Ml PO PRN BID PRN Almacone Liquid (Mag Hydrox/Al Hydrox/Simeth) 355 Ml Oral.susp 30 Ml PO PRN Q6HRS PRN I have reviewed the current psychotropics carefully including drug interactions. Risk benefit ratio favors no change other than as noted in my dictated progress note. Diagnosis: Problems: (1) Anxiety disorder (2) Impulse control disorder (3) Schizoaffective disorder (4) Schizoaffective disorder, chronic condition with acute exacerbation (5) Borderline intellectual disability GEORGE REYNOLDS MD Aug 19, 2017 20:32
[2017-08-20 05:40] VITALS: BP 132/80
[2017-08-20] MEDS: LEVOTHYROXINE 150 MCG TABLET PO SCH (10:53)
[2017-08-20] MEDS: cloZAPine 100 MG TABLET PO SCH (10:54)
[2017-08-20] MEDS: PANTOPRAZOLE 40 MG TABLET. PO SCH (10:54)
[2017-08-20] MEDS: ACETAMINOPHEN 325 MG TABLET PO SCH ×2 (10:54→19:47)
[2017-08-20] MEDS: MELOXICAM 7.5 MG TABLET PO SCH (10:54)
[2017-08-20] MEDS: NICOTINE 14MG PATCH. TD SCH (10:55)
[2017-08-20] MEDS: ASPIRIN 81 MG TAB.CHEW PO SCH (10:55)
[2017-08-20] MEDS: SERTRALINE 25 MG TABLET. PO SCH (10:55)
[2017-08-20] MEDS: POLYETHYLENE GLYCOL 3350 17 GM PACKET. PO SCH (10:55)
[2017-08-20] MEDS: PSYLLIUM SEED (WITH SUGAR) PACKET. PO SCH (10:55)
[2017-08-20] MEDS: HEPARIN PF for SUB-Q USE 5,000 UNIT/0.5 ML VIAL. SQ SCH ×3 (10:56→19:50)
[2017-08-20 16:18] VITALS: BP 153/91
[2017-08-20] MEDS: metFORMIN XR 500 MG TAB.ER.24H PO SCH (17:10)
--- NOTE | 2017-08-20 18:40 | PN ---
DATE: 08/18/2017 This late entry 08/18/2017 covers elements not covered in the initial note 08/18/2017. SUBJECTIVE: I met with the patient in the evening of 08/18/2017. Overall, per nursing report, the patient had a good day, takes her medications whole, does not respond to questions, however. Valproic acid level subtherapeutic at 28. REVIEW OF SYSTEMS: Ambulation impaired, in a wheelchair. No CV, , pulmonary, eye, ENT system symptoms on review. MENTAL STATUS EXAM: Oriented to herself and situation. Speech moderate latency, often responses monosyllabic. Abstraction fair, computation impaired, language function intact. Mood and affect somewhat dysphoric, still somewhat paranoid, but improved. LABORATORY DATA: Reviewed. IMPRESSION: Schizoaffective disorder, bipolar type, mixed with psychotic features. Rest unchanged. PLAN: Reduce Cogentin from 1 mg b.i.d. to 1 mg at bedtime and she has no extrapyramidal symptoms or cogwheel rigidity. Valproic acid level is subtherapeutic at 28. Increase Depakote ER to 1500 mg at bedtime. Check CBC, CMP, valproic acid level in 3 days. Rest continue unchanged. GEORGE REYNOLDS MD DR: JAQUELIN/radha JOB#: [id number] / [id number]
[2017-08-20] MEDS: DIVALPROEX ER 500 MG TAB.ER.24H PO SCH (19:47)
[2017-08-20] MEDS: NIACIN ER 500 MG TABLET.ER PO SCH (19:47)
[2017-08-20] MEDS: BENZTROPINE MESYLATE 1 MG TABLET PO SCH (19:47)
--- NOTE | 2017-08-20 20:07 | PDOC ---
Exam Note: Andrew Note: Please also refer to the separate dictated note~for this date of service dictated separately.~Patient seen individually. Discussed the patient with Nursing staff reviewed the chart.~Reviewed interim history and current functioning. Reviewed vital signs,~Labs/ Radiology~and current medications noted below. Continue current treatment with the changes noted in the dictated addendum note Assessment: Vital Signs: Vital Signs Date Time Temp Pulse Resp B/P (MAP) Pulse Ox O2 Delivery O2 Flow Rate FiO2 08/20/17 16:18 97.8 65 18 153/91 (111) 94 08/18/17 16:11 Room Air I&O Intake and Output 08/20/17 07:00 Intake Total 720 ml Balance 720 ml Intake Oral 720 ml # Bowel Movements 1 Labs: Laboratory Tests Test 08/20/17 07:56 Glucose (Fingerstick) 109 mg/dL (70-99) H Current Medications: Meds: Current Medications Benztropine Mesylate (Cogentin) 1 mg BID PO Last administered on 08/19/17at 11: 44; Start 08/13/17 at 09:00; Stop 08/19/17 at 09:00; Status DC Clozapine (Clozaril) 100 mg DAILY PO Last administered on 08/16/17at 09:31; Start 08/13/17 at 09:00; Stop 08/16/17 at 17:55; Status DC Clozapine (Clozaril) 150 mg QHS PO Last administered on 08/15/17at 19:52; Start 08/13/17 at 21:00; Stop 08/16/17 at 17:55; Status DC Divalproex Sodium (Depakote Er) 1,000 mg QHS PO Last administered on 08/17/17at 19:59; Start 08/13/17 at 21:00; Stop 08/18/17 at 19:25; Status DC Sertraline HCl (Zoloft) 25 mg DAILY PO Last administered on 08/20/17at 10:55; Start 08/13/17 at 09:00 Acetaminophen (Tylenol) 650 mg PRN Q6HRS PRN PO PAIN / TEMP; Start 08/12/17 at 21:15 Multi-Ingredient Ointment (Analgesic [place]) 1 glenny PRN QID PRN TP MUSCLE PAIN; Start 08/12/17 at 21:15 Al Hydroxide/Mg Hydroxide (Mylanta Plus Xs) 15 ml PRN AFTMEALHC PRN PO DYSPEPSIA; Start 08/12/17 at 21:15; Stop 08/13/17 at 17:19; Status DC Magnesium Hydroxide (Milk Of Magnesia) 2,400 mg PRN QHS PRN PO CONSTIPATION; Start 08/12/17 at 21:15; Stop 08/13/17 at 17:19; Status DC Nicotine (Nicoderm Cq 14mg) 1 patch DAILY TD Last administered on 08/20/17at 10: 55; Start 08/13/17 at 09:00 Acetaminophen (Tylenol) 650 mg BID PO Last administered on 08/20/17at 19:47; Start 08/13/17 at 09:00 Acetaminophen (Tylenol) 650 mg PRN Q4HRS PRN PO PAIN / TEMP; Start 08/12/17 at 23:00; Stop 08/13/17 at 12:14; Status DC Aspirin (Children'S Aspirin) 81 mg DAILY PO Last administered on 08/20/17at 10: 55; Start 08/13/17 at 09:00 Levothyroxine Sodium (Synthroid) 150 mcg DAILY06 PO Last administered on at 10:53; Start 08/13/17 at 06:00 Meloxicam (Mobic) 7.5 mg DAILY PO Last administered on 08/20/17 10:54; Start 08/13/17 at 09:00 Metformin HCl (Glucophage Xr) 1,000 mg DAILYWSUP PO Last administered on at 17:10; Start 08/13/17 at 17:00 Niacin (Slo-Niacin) 500 mg QHS PO Last administered on 08/20/17at 19:47; Start 08/13/17 at 21:00 Pantoprazole Sodium (Protonix) 40 mg DAILYAC PO Last administered on 08/20/17 10:54; Start 08/13/17 at 07:30 Polyethylene Glycol (miraLAX) 17 gm DAILY PO Last administered on 08/20/17 10: 55; Start 08/13/17 at 09:00 Psyllium Hydrophilic Mucilloid (Metamucil) 1 pkt DAILY PO Last administered on 08/20/17at 10:55; Start 08/13/17 at 09:00 Heparin Sodium (Porcine) 5,000 unit Q12HR SQ Last administered on 08/20/17at 19: 50; Start 08/13/17 at 21:00 Clozapine (Clozaril) 250 mg DAILY PO Last administered on 08/20/17at 10:54; Start 08/17/17 at 09:00 Benztropine Mesylate (Cogentin) 1 mg QHS PO Last administered on 08/20/17at 19: 47; Start 08/19/17 at 21:00 Divalproex Sodium (Depakote Er) 1,500 mg QHS PO Last administered on 08/20/17at 19:47; Start 08/18/17 at 21:00 Active Scripts Active Reported Clozapine 100 Mg Tablet 150 Mg PO QHS Zoloft (Sertraline Hcl) 25 Mg Tablet 25 Mg PO DAILY Niaspan (Niacin) 500 Mg Tab.er.24h 500 Mg PO QHS Omeprazole 20 Mg Tablet.dr 20 Mg PO DAILYAC Levothyroxine Sodium 150 Mcg Tablet 150 Mcg PO DAILYAC Tylenol (Acetaminophen) 325 Mg Tablet 650 Mg PO BID Benztropine Mesylate 1 Mg Tablet 1 Mg PO BID Multivitamins (Multivitamin) 1 Each Tablet 1 Each PO DAILY Meloxicam 7.5 Mg Tablet 7.5 Mg PO DAILY Clozapine 100 Mg Tablet 100 Mg PO DAILY Metamucil Powder (Psyllium Seed/Aspartame) 283 Gm Powder 1 Packet PO DAILY Tylenol (Acetaminophen) 325 Mg Tablet 650 Mg PO PRN Q4HRS PRN Polyethylene Glycol 3350 2,500 Gm Powder 17 Gm PO DAILY Aspirin 81 Mg Tab.chew 1 Tab PO DAILY Depakote Er (Divalproex Sodium) 500 Mg Tab.er.24h 1,000 Mg PO QHS Metformin Hcl Er (Metformin Hcl) 500 Mg Tab.er.24h 1,000 Mg PO DAILYWSUP Milk Of Magnesia (Magnesium Hydroxide) 400 Mg/5 Ml Oral.susp 30 Ml PO PRN BID PRN Almacone Liquid (Mag Hydrox/Al Hydrox/Simeth) 355 Ml Oral.susp 30 Ml PO PRN Q6HRS PRN I have reviewed the current psychotropics carefully including drug interactions. Risk benefit ratio favors no change other than as noted in my dictated progress note. Diagnosis: Problems: (1) Anxiety disorder (2) Impulse control disorder (3) Schizoaffective disorder (4) Schizoaffective disorder, chronic condition with acute exacerbation (5) Borderline intellectual disability GEORGE REYNOLDS MD Aug 20, 2017 20:07
[2017-08-21] MEDS: LEVOTHYROXINE 150 MCG TABLET PO SCH (05:08)
[2017-08-21 06:13] VITALS: BP 105/78
[2017-08-21 07:46] LABS: ALBUMIN 3.2 g/dL (3.4-5.0); ALBUMIN/GLOBULIN RATIO 0.9 (1.0-1.7); ALK PHOS 112 U/L (46-116); ALT (SGPT) 39 U/L (14-59); ANION GAP 8 (6-14); AST (SGOT) 8 U/L (15-37); BLOOD UREA NITROGEN 13 mg/dL (7-20); BUN/CREATININE RATIO 16 (6-20); CARBON DIOXIDE 30 mmol/L (21-32); CHLORIDE 105 mmol/L (98-107); CREATININE 0.8 mg/dL (0.6-1.0); GFR 73.4; GLUCOSE 106 mg/dL (70-99); POTASSIUM 4.2 mmol/L (3.5-5.1); SODIUM 143 mmol/L (136-145); TOTAL BILIRUBIN 0.3 mg/dL (0.2-1.0); TOTAL PROTEIN 6.8 g/dL (6.4-8.2)
[2017-08-21 07:53] LABS: VAL ACID 70 mcg/mL (50-100)
[2017-08-21 07:55] LABS: BASO # 0.1 x10^3/uL (0.0-0.2); BASO % 0 % (0-3); EOS # 0.4 x10^3/uL (0.0-0.7); EOS % 1 % (0-3); HEMATOCRIT 36.6 % (36.0-47.0); HEMOGLOBIN 11.9 g/dL (12.0-15.5); LYMPH # 59.3 x10^3/uL (1.0-4.8); LYMPH % 84 % (24-48); MEAN CORPUSCULAR HEMOGLOBIN 33 pg (25-35); MEAN CORPUSCULAR HGB CONC 33 g/dL (31-37); MEAN CORPUSCULAR VOLUME 103 fL (79-100); MONO # 1.9 x10^3/uL (0.0-1.1); MONO % 3 % (0-9); NEUT # 8.7 x10^3uL (1.8-7.7); NEUT % 12 % (31-73); PLATELET COUNT 184 x10^3/uL (140-400); RED BLOOD COUNT 3.56 x10^6/uL (3.50-5.40); RED CELL DISTRIBUTION WIDTH 13.2 % (11.5-14.5)
[2017-08-21 08:14] LABS: WHITE BLOOD COUNT 70.4 x10^3/uL (4.0-11.0)
[2017-08-21] MEDS: PSYLLIUM SEED (WITH SUGAR) PACKET. PO SCH ×2 (09:00→11:46)
[2017-08-21] MEDS: POLYETHYLENE GLYCOL 3350 17 GM PACKET. PO SCH ×2 (09:00→11:47)
[2017-08-21 10:42] LABS: % BLASTS 1 % (0-0); % EOS 1 % (0-5); % LYMPHS 72 % (24-48); % MONOS 3 % (0-10); % SEGS 23 % (35-66); PLT ESTIMATE ADEQUATE (ADEQUATE); SMUDGE CELLS PRESENT
[2017-08-21] MEDS: ASPIRIN 81 MG TAB.CHEW PO SCH (11:45)
[2017-08-21] MEDS: SERTRALINE 25 MG TABLET. PO SCH (11:45)
[2017-08-21] MEDS: ACETAMINOPHEN 325 MG TABLET PO SCH ×2 (11:45→19:33)
[2017-08-21] MEDS: MELOXICAM 7.5 MG TABLET PO SCH (11:45)
[2017-08-21] MEDS: PANTOPRAZOLE 40 MG TABLET. PO SCH (11:45)
[2017-08-21] MEDS: cloZAPine 100 MG TABLET PO SCH (11:45)
[2017-08-21] MEDS: HEPARIN PF for SUB-Q USE 5,000 UNIT/0.5 ML VIAL. SQ SCH ×2 (11:47→19:36)
[2017-08-21] MEDS: NICOTINE 14MG PATCH. TD SCH (11:47)
[2017-08-21 16:02] VITALS: BP 94/55
[2017-08-21] MEDS: metFORMIN XR 500 MG TAB.ER.24H PO SCH (16:54)
[2017-08-21] MEDS: NIACIN ER 500 MG TABLET.ER PO SCH (19:33)
[2017-08-21] MEDS: DIVALPROEX ER 500 MG TAB.ER.24H PO SCH (19:34)
--- NOTE | 2017-08-21 20:07 | PDOC ---
Exam Note: Andrew Note: Please also refer to the separate dictated note~for this date of service dictated separately.~Patient seen individually. Discussed the patient with Nursing staff reviewed the chart.~Reviewed interim history and current functioning. Reviewed vital signs,~Labs/ Radiology~and current medications noted below. Continue current treatment with the changes noted in the dictated addendum note Assessment: Vital Signs: Vital Signs Date Time Temp Pulse Resp B/P (MAP) Pulse Ox O2 Delivery O2 Flow Rate FiO2 08/21/17 16:02 97.0 91 18 94/55 (68) 94 08/18/17 16:11 Room Air I&O Intake and Output 08/21/17 07:00 Intake Total 1220 ml Balance 1220 ml Intake Oral 1220 ml # Voids 1 # Bowel Movements 1 Labs: Laboratory Tests Test 08/21/17 07:19 08/21/17 07:38 White Blood Count 70.4 x10^3/uL (4.0-11.0) *H Red Blood Count 3.56 x10^6/uL (3.50-5.40) Hemoglobin 11.9 g/dL (12.0-15.5) L Hematocrit 36.6 % (36.0-47.0) Mean Corpuscular Volume 103 fL (79-100) H Mean Corpuscular Hemoglobin 33 pg (25-35) Mean Corpuscular Hemoglobin Concent 33 g/dL (31-37) Red Cell Distribution Width 13.2 % (11.5-14.5) Platelet Count 184 x10^3/uL (140-400) Neutrophils (%) (Auto) 12 % (31-73) L Lymphocytes (%) (Auto) 84 % (24-48) H Monocytes (%) (Auto) 3 % (0-9) Eosinophils (%) (Auto) 1 % (0-3) Basophils (%) (Auto) 0 % (0-3) Neutrophils # (Auto) 8.7 x10^3uL (1.8-7.7) H Lymphocytes # (Auto) 59.3 x10^3/uL (1.0-4.8) H Monocytes # (Auto) 1.9 x10^3/uL (0.0-1.1) H Eosinophils # (Auto) 0.4 x10^3/uL (0.0-0.7) Basophils # (Auto) 0.1 x10^3/uL (0.0-0.2) Segmented Neutrophils % 23 % (35-66) L Lymphocytes % 72 % (24-48) H Monocytes % 3 % (0-10) Eosinophils % 1 % (0-5) Blast Cells % (Manual) 1 % (0-0) H Smudge Cells Present Platelet Estimate Adequate (ADEQUATE) Sodium Level 143 mmol/L (136-145) Potassium Level 4.2 mmol/L (3.5-5.1) Chloride Level 105 mmol/L (98-107) Carbon Dioxide Level 30 mmol/L (21-32) Anion Gap 8 (6-14) Blood Urea Nitrogen 13 mg/dL (7-20) Creatinine 0.8 mg/dL (0.6-1.0) Estimated GFR (Cockcroft-Gault) 73.4 BUN/Creatinine Ratio 16 (6-20) Glucose Level 106 mg/dL (70-99) H Calcium Level 9.0 mg/dL (8.5-10.1) Total Bilirubin 0.3 mg/dL (0.2-1.0) Aspartate Amino Transferase (AST) 8 U/L (15-37) L Alanine Aminotransferase (ALT) 39 U/L (14-59) Alkaline Phosphatase 112 U/L (46-116) Total Protein 6.8 g/dL (6.4-8.2) Albumin 3.2 g/dL (3.4-5.0) L Albumin/Globulin Ratio 0.9 (1.0-1.7) L Valproic Acid Level 70 mcg/mL (50-100) Valproic Acid Last Dose Date 08/20/17 Valproic Acid Last Dose Time 2100 Glucose (Fingerstick) 107 mg/dL (70-99) H Current Medications: Meds: Current Medications Benztropine Mesylate (Cogentin) 1 mg BID PO Last administered on 08/19/17at 11: 44; Start 08/13/17 at 09:00; Stop 08/19/17 at 09:00; Status DC Clozapine (Clozaril) 100 mg DAILY PO Last administered on 08/16/17at 09:31; Start 08/13/17 at 09:00; Stop 08/16/17 at 17:55; Status DC Clozapine (Clozaril) 150 mg QHS PO Last administered on 08/15/17at 19:52; Start 08/13/17 at 21:00; Stop 08/16/17 at 17:55; Status DC Divalproex Sodium (Depakote Er) 1,000 mg QHS PO Last administered on 08/17/17at 19:59; Start 08/13/17 at 21:00; Stop 08/18/17 at 19:25; Status DC Sertraline HCl (Zoloft) 25 mg DAILY PO Last administered on 08/21/17at 11:45; Start 08/13/17 at 09:00 Acetaminophen (Tylenol) 650 mg PRN Q6HRS PRN PO PAIN / TEMP; Start 08/12/17 at 21:15 Multi-Ingredient Ointment (Analgesic [place]) 1 glenny PRN QID PRN TP MUSCLE PAIN; Start 08/12/17 at 21:15 Al Hydroxide/Mg Hydroxide (Mylanta Plus Xs) 15 ml PRN AFTMEALHC PRN PO DYSPEPSIA; Start 08/12/17 at 21:15; Stop 08/13/17 at 17:19; Status DC Magnesium Hydroxide (Milk Of Magnesia) 2,400 mg PRN QHS PRN PO CONSTIPATION; Start 08/12/17 at 21:15; Stop 08/13/17 at 17:19; Status DC Nicotine (Nicoderm Cq 14mg) 1 patch DAILY TD Last administered on 08/21/17at 11: 47; Start 08/13/17 at 09:00 Acetaminophen (Tylenol) 650 mg BID PO Last administered on 08/21/17at 19:33; Start 08/13/17 at 09:00 Acetaminophen (Tylenol) 650 mg PRN Q4HRS PRN PO PAIN / TEMP; Start 08/12/17 at 23:00; Stop 08/13/17 at 12:14; Status DC Aspirin (Children'S Aspirin) 81 mg DAILY PO Last administered on 08/21/17at 11: 45; Start 08/13/17 at 09:00 Levothyroxine Sodium (Synthroid) 150 mcg DAILY06 PO Last administered on at 05:08; Start 08/13/17 at 06:00 Meloxicam (Mobic) 7.5 mg DAILY PO Last administered on 08/21/17at 11:45; Start 08/13/17 at 09:00 Metformin HCl (Glucophage Xr) 1,000 mg DAILYWSUP PO Last administered on at 16:54; Start 08/13/17 at 17:00 Niacin (Slo-Niacin) 500 mg QHS PO Last administered on 08/21/17at 19:33; Start 08/13/17 at 21:00 Pantoprazole Sodium (Protonix) 40 mg DAILYAC PO Last administered on 08/21/17at 11:45; Start 08/13/17 at 07:30 Polyethylene Glycol (miraLAX) 17 gm DAILY PO Last administered on 08/20/17 10: 55; Start 08/13/17 at 09:00 Psyllium Hydrophilic Mucilloid (Metamucil) 1 pkt DAILY PO Last administered on 08/20/17 10:55; Start 08/13/17 at 09:00 Heparin Sodium (Porcine) 5,000 unit Q12HR SQ Last administered on 08/21/17at 19: 36; Start 08/13/17 at 21:00 Clozapine (Clozaril) 250 mg DAILY PO Last administered on 08/21/17at 11:45; Start 08/17/17 at 09:00 Benztropine Mesylate (Cogentin) 1 mg QHS PO Last administered on 08/20/17at 19: 47; Start 08/19/17 at 21:00; Stop 08/21/17 at 18:45; Status DC Divalproex Sodium (Depakote Er) 1,500 mg QHS PO Last administered on 08/21/17at 19:34; Start 08/18/17 at 21:00 Active Scripts Active Reported Clozapine 100 Mg Tablet 150 Mg PO QHS Zoloft (Sertraline Hcl) 25 Mg Tablet 25 Mg PO DAILY Niaspan (Niacin) 500 Mg Tab.er.24h 500 Mg PO QHS Omeprazole 20 Mg Tablet.dr 20 Mg PO DAILYAC Levothyroxine Sodium 150 Mcg Tablet 150 Mcg PO DAILYAC Tylenol (Acetaminophen) 325 Mg Tablet 650 Mg PO BID Benztropine Mesylate 1 Mg Tablet 1 Mg PO BID Multivitamins (Multivitamin) 1 Each Tablet 1 Each PO DAILY Meloxicam 7.5 Mg Tablet 7.5 Mg PO DAILY Clozapine 100 Mg Tablet 100 Mg PO DAILY Metamucil Powder (Psyllium Seed/Aspartame) 283 Gm Powder 1 Packet PO DAILY Tylenol (Acetaminophen) 325 Mg Tablet 650 Mg PO PRN Q4HRS PRN Polyethylene Glycol 3350 2,500 Gm Powder 17 Gm PO DAILY Aspirin 81 Mg Tab.chew 1 Tab PO DAILY Depakote Er (Divalproex Sodium) 500 Mg Tab.er.24h 1,000 Mg PO QHS Metformin Hcl Er (Metformin Hcl) 500 Mg Tab.er.24h 1,000 Mg PO DAILYWSUP Milk Of Magnesia (Magnesium Hydroxide) 400 Mg/5 Ml Oral.susp 30 Ml PO PRN BID PRN Almacone Liquid (Mag Hydrox/Al Hydrox/Simeth) 355 Ml Oral.susp 30 Ml PO PRN Q6HRS PRN I have reviewed the current psychotropics carefully including drug interactions. Risk benefit ratio favors no change other than as noted in my dictated progress note. Diagnosis: Problems: (1) Anxiety disorder (2) Impulse control disorder (3) Schizoaffective disorder (4) Schizoaffective disorder, chronic condition with acute exacerbation (5) Borderline intellectual disability GEORGE REYNOLDS MD Aug 21, 2017 20:07
--- NOTE | 2017-08-22 00:20 | PN ---
DATE: 08/19/2017 PSYCHIATRIC PROGRESS NOTE This is a late entry for 08/19/2017, covers elements not covered in my initial note of 08/19/2017. SUBJECTIVE: I met with the patient the evening of 08/19/2017. Overall, the patient remains quite withdrawn, resistive with cares, refusing medications at times. REVIEW OF SYSTEMS: Ambulation impaired, in wheelchair. No CV, , pulmonary, eye, ENT system symptoms on review. Reliability poor, not very verbal. MENTAL STATUS EXAM: Oriented to herself and situation. Insight limited, judgment marginal, language function intact. Mood and affect depressed, withdrawn, seems less psychotic. No suicidal or homicidal ideation. LABORATORY DATA: Reviewed. IMPRESSION: Schizoaffective disorder, bipolar type, mixed with psychotic features, in partial remission. PLAN: Continue current psychotropics. Check labs level on the Depakote in 3 days and adjust to reach a therapeutic level. Continue Clozaril. GEORGE REYNOLDS MD DR: JAQUELIN/radha JOB#: [id number] / [id number]
--- NOTE | 2017-08-22 00:36 | PN ---
DATE: 08/20/2017 This is late entry for 08/20/2017 covers elements not covered in my initial note of 08/20/2017. SUBJECTIVE: I met with the patient in the evening of 08/20/2017. The patient slept 7 hours previous evening. Appetite is fair, resistive to medications, previous evening refused Synthroid in the morning, refused all meds after that, takes some meds crushed in iced tea. REVIEW OF SYSTEMS: She states she does not feel well, not specific about in what way she does not feel well. Impaired ambulation, in wheelchair. No CV, , pulmonary, eye system symptoms on review, withdrawn, often responses monosyllabic. MENTAL STATUS EXAM: Oriented to herself and situation. Speech, often responses monosyllabic. Abstraction fair, computation impaired, language function intact, still somewhat paranoid. Mood and affect withdrawn. LABORATORY DATA: Reviewed. IMPRESSION: Schizoaffective disorder, bipolar type, mixed with psychotic features, schizophrenia, chronic paranoid with depression. Rest unchanged. PLAN: Check CBC, CMP, valproic acid level in the morning of 08/21/2017. Continue rest of the psychotropics. She does better as the day goes on. GEORGE REYNOLDS MD DR: JAQUELIN/radha JOB#: [id number] / [id number]
[2017-08-22 06:16] VITALS: BP 110/46
[2017-08-22] MEDS: SERTRALINE 25 MG TABLET. PO SCH (09:00)
[2017-08-22] MEDS: NICOTINE 14MG PATCH. TD SCH (09:00)
[2017-08-22] MEDS: LEVOTHYROXINE 150 MCG TABLET PO SCH (09:00)
[2017-08-22] MEDS: MELOXICAM 7.5 MG TABLET PO SCH (09:00)
[2017-08-22] MEDS: ASPIRIN 81 MG TAB.CHEW PO SCH (09:00)
[2017-08-22] MEDS: PANTOPRAZOLE 40 MG TABLET. PO SCH (09:00)
[2017-08-22] MEDS: POLYETHYLENE GLYCOL 3350 17 GM PACKET. PO SCH (09:02)
[2017-08-22] MEDS: cloZAPine 100 MG TABLET PO SCH (09:02)
[2017-08-22] MEDS: PSYLLIUM SEED (WITH SUGAR) PACKET. PO SCH (09:02)
[2017-08-22] MEDS: ACETAMINOPHEN 325 MG TABLET PO SCH ×2 (09:02→19:19)
[2017-08-22] MEDS: HEPARIN PF for SUB-Q USE 5,000 UNIT/0.5 ML VIAL. SQ SCH ×2 (09:58→19:21)
[2017-08-22 16:18] VITALS: BP 99/70
[2017-08-22] MEDS: metFORMIN XR 500 MG TAB.ER.24H PO SCH (16:44)
[2017-08-22] MEDS: NIACIN ER 500 MG TABLET.ER PO SCH (19:18)
[2017-08-22] MEDS: DIVALPROEX ER 500 MG TAB.ER.24H PO SCH (19:18)
--- NOTE | 2017-08-22 20:02 | PDOC ---
Exam Note: Andrew Note: Please also refer to the separate dictated note~for this date of service dictated separately.~Patient seen individually. Discussed the patient with Nursing staff reviewed the chart.~Reviewed interim history and current functioning. Reviewed vital signs,~Labs/ Radiology~and current medications noted below. Continue current treatment with the changes noted in the dictated addendum note Assessment: Vital Signs: Vital Signs Date Time Temp Pulse Resp B/P (MAP) Pulse Ox O2 Delivery O2 Flow Rate FiO2 08/22/17 16:18 97.7 98 16 99/70 (80) Room Air 94.0 08/22/17 06:16 89 I&O Intake and Output 08/22/17 07:00 Intake Total 1320 ml Balance 1320 ml Intake Oral 1320 ml # Voids 1 # Bowel Movements 1 Labs: Laboratory Tests Test 08/22/17 07:21 Glucose (Fingerstick) 101 mg/dL (70-99) H Current Medications: Meds: Current Medications Benztropine Mesylate (Cogentin) 1 mg BID PO Last administered on 08/19/17at 11: 44; Start 08/13/17 at 09:00; Stop 08/19/17 at 09:00; Status DC Clozapine (Clozaril) 100 mg DAILY PO Last administered on 08/16/17at 09:31; Start 08/13/17 at 09:00; Stop 08/16/17 at 17:55; Status DC Clozapine (Clozaril) 150 mg QHS PO Last administered on 08/15/17at 19:52; Start 08/13/17 at 21:00; Stop 08/16/17 at 17:55; Status DC Divalproex Sodium (Depakote Er) 1,000 mg QHS PO Last administered on 08/17/17at 19:59; Start 08/13/17 at 21:00; Stop 08/18/17 at 19:25; Status DC Sertraline HCl (Zoloft) 25 mg DAILY PO Last administered on 08/22/17at 09:00; Start 08/13/17 at 09:00 Acetaminophen (Tylenol) 650 mg PRN Q6HRS PRN PO PAIN / TEMP; Start 08/12/17 at 21:15 Multi-Ingredient Ointment (Analgesic [place]) 1 glenny PRN QID PRN TP MUSCLE PAIN; Start 08/12/17 at 21:15 Al Hydroxide/Mg Hydroxide (Mylanta Plus Xs) 15 ml PRN AFTMEALHC PRN PO DYSPEPSIA; Start 08/12/17 at 21:15; Stop 08/13/17 at 17:19; Status DC Magnesium Hydroxide (Milk Of Magnesia) 2,400 mg PRN QHS PRN PO CONSTIPATION; Start 08/12/17 at 21:15; Stop 08/13/17 at 17:19; Status DC Nicotine (Nicoderm Cq 14mg) 1 patch DAILY TD Last administered on 08/22/17 09: 00; Start 08/13/17 at 09:00 Acetaminophen (Tylenol) 650 mg BID PO Last administered on 08/22/17 19:19; Start 08/13/17 at 09:00 Acetaminophen (Tylenol) 650 mg PRN Q4HRS PRN PO PAIN / TEMP; Start 08/12/17 at 23:00; Stop 08/13/17 at 12:14; Status DC Aspirin (Children'S Aspirin) 81 mg DAILY PO Last administered on 08/22/17 09: 00; Start 08/13/17 at 09:00 Levothyroxine Sodium (Synthroid) 150 mcg DAILY06 PO Last administered on 09:00; Start 08/13/17 at 06:00 Meloxicam (Mobic) 7.5 mg DAILY PO Last administered on 08/22/17 09:00; Start 08/13/17 at 09:00 Metformin HCl (Glucophage Xr) 1,000 mg DAILYWSUP PO Last administered on at 16:44; Start 08/13/17 at 17:00 Niacin (Slo-Niacin) 500 mg QHS PO Last administered on 08/22/17 19:18; Start 08/13/17 at 21:00 Pantoprazole Sodium (Protonix) 40 mg DAILYAC PO Last administered on 08/22/17 09:00; Start 08/13/17 at 07:30 Polyethylene Glycol (miraLAX) 17 gm DAILY PO Last administered on 08/22/17 09: 02; Start 08/13/17 at 09:00 Psyllium Hydrophilic Mucilloid (Metamucil) 1 pkt DAILY PO Last administered on 08/22/17at 09:02; Start 08/13/17 at 09:00 Heparin Sodium (Porcine) 5,000 unit Q12HR SQ Last administered on 08/22/17at 19: 21; Start 08/13/17 at 21:00 Clozapine (Clozaril) 250 mg DAILY PO Last administered on 08/22/17at 09:02; Start 08/17/17 at 09:00; Stop 08/22/17 at 18:42; Status DC Benztropine Mesylate (Cogentin) 1 mg QHS PO Last administered on 08/20/17at 19: 47; Start 08/19/17 at 21:00; Stop 08/21/17 at 18:45; Status DC Divalproex Sodium (Depakote Er) 1,500 mg QHS PO Last administered on 08/22/17at 19:18; Start 08/18/17 at 21:00 Clozapine (Clozaril) 275 mg DAILY PO ; Start 08/23/17 at 09:00 Active Scripts Active Reported Clozapine 100 Mg Tablet 150 Mg PO QHS Zoloft (Sertraline Hcl) 25 Mg Tablet 25 Mg PO DAILY Niaspan (Niacin) 500 Mg Tab.er.24h 500 Mg PO QHS Omeprazole 20 Mg Tablet.dr 20 Mg PO DAILYAC Levothyroxine Sodium 150 Mcg Tablet 150 Mcg PO DAILYAC Tylenol (Acetaminophen) 325 Mg Tablet 650 Mg PO BID Benztropine Mesylate 1 Mg Tablet 1 Mg PO BID Multivitamins (Multivitamin) 1 Each Tablet 1 Each PO DAILY Meloxicam 7.5 Mg Tablet 7.5 Mg PO DAILY Clozapine 100 Mg Tablet 100 Mg PO DAILY Metamucil Powder (Psyllium Seed/Aspartame) 283 Gm Powder 1 Packet PO DAILY Tylenol (Acetaminophen) 325 Mg Tablet 650 Mg PO PRN Q4HRS PRN Polyethylene Glycol 3350 2,500 Gm Powder 17 Gm PO DAILY Aspirin 81 Mg Tab.chew 1 Tab PO DAILY Depakote Er (Divalproex Sodium) 500 Mg Tab.er.24h 1,000 Mg PO QHS Metformin Hcl Er (Metformin Hcl) 500 Mg Tab.er.24h 1,000 Mg PO DAILYWSUP Milk Of Magnesia (Magnesium Hydroxide) 400 Mg/5 Ml Oral.susp 30 Ml PO PRN BID PRN Almacone Liquid (Mag Hydrox/Al Hydrox/Simeth) 355 Ml Oral.susp 30 Ml PO PRN Q6HRS PRN I have reviewed the current psychotropics carefully including drug interactions. Risk benefit ratio favors no change other than as noted in my dictated progress note. Diagnosis: Problems: (1) Anxiety disorder (2) Impulse control disorder (3) Schizoaffective disorder (4) Schizoaffective disorder, chronic condition with acute exacerbation (5) Borderline intellectual disability GEORGE REYNOLDS MD Aug 22, 2017 20:02
--- NOTE | 2017-08-23 00:38 | PN ---
DATE: 08/21/2017 This is a late entry, covers the elements not covered in my initial note, 08/21/2017. SUBJECTIVE: I met with the patient in the evening of 08/21/2017. The patient slept 7 hours previous evening, slept until 11 a.m., cooperative, irritable at times, somewhat withdrawn, still psychotic, but less so than before. REVIEW OF SYSTEMS: Ambulation impaired, in the wheelchair. No CV, , pulmonary, eye, ENT system symptoms on review. Reliability varies. MENTAL STATUS EXAM: Oriented to herself and situation. Speech moderate latency, often response is monosyllabic. Abstraction fair, computation impaired, language function intact, attention span short. Mood and affect somewhat withdrawn. LABORATORY DATA: Reviewed. She does have leukemia. White cell count is elevated, neutrophils 8.7. We will check with the pharmacy to check with the Clozaril registry that given the current parameters if we are able to increase the Clozaril to 275 mg a day. We will go ahead and do this. Valproic acid level therapeutic at 70, continue rest of the psychotropics. MAN Ann REYNOLDS MD DR: JAQUELIN/radha JOB#: [id number] / [id number]
[2017-08-23 06:25] VITALS: BP 104/67
[2017-08-23] MEDS: LEVOTHYROXINE 150 MCG TABLET PO SCH (07:54)
[2017-08-23] MEDS: PANTOPRAZOLE 40 MG TABLET. PO SCH (07:56)
[2017-08-23] MEDS: POLYETHYLENE GLYCOL 3350 17 GM PACKET. PO SCH (10:54)
[2017-08-23] MEDS: NICOTINE 14MG PATCH. TD SCH (10:54)
[2017-08-23] MEDS: ASPIRIN 81 MG TAB.CHEW PO SCH (10:55)
[2017-08-23] MEDS: SERTRALINE 25 MG TABLET. PO SCH (10:55)
[2017-08-23] MEDS: PSYLLIUM SEED (WITH SUGAR) PACKET. PO SCH (10:55)
[2017-08-23] MEDS: MELOXICAM 7.5 MG TABLET PO SCH (10:55)
[2017-08-23] MEDS: ACETAMINOPHEN 325 MG TABLET PO SCH ×2 (10:55→19:07)
[2017-08-23] MEDS: HEPARIN PF for SUB-Q USE 5,000 UNIT/0.5 ML VIAL. SQ SCH ×2 (10:58→19:11)
[2017-08-23] MEDS: cloZAPine 100 MG TABLET PO SCH (11:06)
[2017-08-23 15:52] VITALS: BP 118/84
[2017-08-23] MEDS: metFORMIN XR 500 MG TAB.ER.24H PO SCH (16:35)
[2017-08-23] MEDS: DIVALPROEX ER 500 MG TAB.ER.24H PO SCH (19:07)
[2017-08-23] MEDS: NIACIN ER 500 MG TABLET.ER PO SCH (19:07)
--- NOTE | 2017-08-23 20:08 | PDOC ---
Exam Note: Andrew Note: Please also refer to the separate dictated note~for this date of service dictated separately.~Patient seen individually. Discussed the patient with Nursing staff reviewed the chart.~Reviewed interim history and current functioning. Reviewed vital signs,~Labs/ Radiology~and current medications noted below. Continue current treatment with the changes noted in the dictated addendum note Assessment: Vital Signs: Vital Signs Date Time Temp Pulse Resp B/P (MAP) Pulse Ox O2 Delivery O2 Flow Rate FiO2 08/23/17 15:52 97.8 86 20 118/84 (95) 92 08/23/17 06:25 Room Air 08/22/17 16:18 94.0 I&O Intake and Output 08/23/17 07:00 Intake Total 720 ml Balance 720 ml Intake Oral 720 ml # Bowel Movements 1 Labs: Laboratory Tests Test 08/23/17 07:51 Glucose (Fingerstick) 110 mg/dL (70-99) H Current Medications: Meds: Current Medications Benztropine Mesylate (Cogentin) 1 mg BID PO Last administered on 08/19/17at 11: 44; Start 08/13/17 at 09:00; Stop 08/19/17 at 09:00; Status DC Clozapine (Clozaril) 100 mg DAILY PO Last administered on 08/16/17at 09:31; Start 08/13/17 at 09:00; Stop 08/16/17 at 17:55; Status DC Clozapine (Clozaril) 150 mg QHS PO Last administered on 08/15/17at 19:52; Start 08/13/17 at 21:00; Stop 08/16/17 at 17:55; Status DC Divalproex Sodium (Depakote Er) 1,000 mg QHS PO Last administered on 08/17/17at 19:59; Start 08/13/17 at 21:00; Stop 08/18/17 at 19:25; Status DC Sertraline HCl (Zoloft) 25 mg DAILY PO Last administered on 08/23/17at 10:55; Start 08/13/17 at 09:00 Acetaminophen (Tylenol) 650 mg PRN Q6HRS PRN PO PAIN / TEMP; Start 08/12/17 at 21:15 Multi-Ingredient Ointment (Analgesic [place]) 1 glenny PRN QID PRN TP MUSCLE PAIN; Start 08/12/17 at 21:15 Al Hydroxide/Mg Hydroxide (Mylanta Plus Xs) 15 ml PRN AFTMEALHC PRN PO DYSPEPSIA; Start 08/12/17 at 21:15; Stop 08/13/17 at 17:19; Status DC Magnesium Hydroxide (Milk Of Magnesia) 2,400 mg PRN QHS PRN PO CONSTIPATION; Start 08/12/17 at 21:15; Stop 08/13/17 at 17:19; Status DC Nicotine (Nicoderm Cq 14mg) 1 patch DAILY TD Last administered on 08/23/17 10: 54; Start 08/13/17 at 09:00 Acetaminophen (Tylenol) 650 mg BID PO Last administered on 08/23/17 19:07; Start 08/13/17 at 09:00 Acetaminophen (Tylenol) 650 mg PRN Q4HRS PRN PO PAIN / TEMP; Start 08/12/17 at 23:00; Stop 08/13/17 at 12:14; Status DC Aspirin (Children'S Aspirin) 81 mg DAILY PO Last administered on 08/23/17 10: 55; Start 08/13/17 at 09:00 Levothyroxine Sodium (Synthroid) 150 mcg DAILY06 PO Last administered on 07:54; Start 08/13/17 at 06:00 Meloxicam (Mobic) 7.5 mg DAILY PO Last administered on 08/23/17 10:55; Start 08/13/17 at 09:00 Metformin HCl (Glucophage Xr) 1,000 mg DAILYWSUP PO Last administered on 16:35; Start 08/13/17 at 17:00 Niacin (Slo-Niacin) 500 mg QHS PO Last administered on 08/23/17 19:07; Start 08/13/17 at 21:00 Pantoprazole Sodium (Protonix) 40 mg DAILYAC PO Last administered on 08/23/17 07:56; Start 08/13/17 at 07:30 Polyethylene Glycol (miraLAX) 17 gm DAILY PO Last administered on 08/23/17 10: 54; Start 08/13/17 at 09:00 Psyllium Hydrophilic Mucilloid (Metamucil) 1 pkt DAILY PO Last administered on 08/23/17 10:55; Start 08/13/17 at 09:00 Heparin Sodium (Porcine) 5,000 unit Q12HR SQ Last administered on 08/23/17at 19: 11; Start 08/13/17 at 21:00 Clozapine (Clozaril) 250 mg DAILY PO Last administered on 08/22/17at 09:02; Start 08/17/17 at 09:00; Stop 08/22/17 at 18:42; Status DC Benztropine Mesylate (Cogentin) 1 mg QHS PO Last administered on 08/20/17at 19: 47; Start 08/19/17 at 21:00; Stop 08/21/17 at 18:45; Status DC Divalproex Sodium (Depakote Er) 1,500 mg QHS PO Last administered on 08/23/17at 19:07; Start 08/18/17 at 21:00 Clozapine (Clozaril) 275 mg DAILY PO Last administered on 08/23/17at 11:06; Start 08/23/17 at 09:00 Active Scripts Active Reported Clozapine 100 Mg Tablet 150 Mg PO QHS Zoloft (Sertraline Hcl) 25 Mg Tablet 25 Mg PO DAILY Niaspan (Niacin) 500 Mg Tab.er.24h 500 Mg PO QHS Omeprazole 20 Mg Tablet.dr 20 Mg PO DAILYAC Levothyroxine Sodium 150 Mcg Tablet 150 Mcg PO DAILYAC Tylenol (Acetaminophen) 325 Mg Tablet 650 Mg PO BID Benztropine Mesylate 1 Mg Tablet 1 Mg PO BID Multivitamins (Multivitamin) 1 Each Tablet 1 Each PO DAILY Meloxicam 7.5 Mg Tablet 7.5 Mg PO DAILY Clozapine 100 Mg Tablet 100 Mg PO DAILY Metamucil Powder (Psyllium Seed/Aspartame) 283 Gm Powder 1 Packet PO DAILY Tylenol (Acetaminophen) 325 Mg Tablet 650 Mg PO PRN Q4HRS PRN Polyethylene Glycol 3350 2,500 Gm Powder 17 Gm PO DAILY Aspirin 81 Mg Tab.chew 1 Tab PO DAILY Depakote Er (Divalproex Sodium) 500 Mg Tab.er.24h 1,000 Mg PO QHS Metformin Hcl Er (Metformin Hcl) 500 Mg Tab.er.24h 1,000 Mg PO DAILYWSUP Milk Of Magnesia (Magnesium Hydroxide) 400 Mg/5 Ml Oral.susp 30 Ml PO PRN BID PRN Almacone Liquid (Mag Hydrox/Al Hydrox/Simeth) 355 Ml Oral.susp 30 Ml PO PRN Q6HRS PRN I have reviewed the current psychotropics carefully including drug interactions. Risk benefit ratio favors no change other than as noted in my dictated progress note. Diagnosis: Problems: (1) Anxiety disorder (2) Impulse control disorder (3) Schizoaffective disorder (4) Schizoaffective disorder, chronic condition with acute exacerbation (5) Borderline intellectual disability GEORGE REYNOLDS MD Aug 23, 2017 20:08
--- NOTE | 2017-08-24 01:36 | PN ---
DATE: 08/22/2017 PSYCHIATRIC PROGRESS NOTE This late entry 08/22/2017 covers elements not covered in my initial note 08/22/2017. SUBJECTIVE: Met with the patient in the evening of 08/22/2017. The patient has been quite withdrawn, not very verbal. Both morning and evening takes meds and yogurt, took her metformin. I did speak to the pharmacist to this checked with the Clozaril database and despite her leukemia we have to monitor her absolute neutrophil counts. No differently than someone who does not have leukemia as far as Clozaril is concerned that since the absolute neutrophil count consequent to this is unremarkable, we have increased the Clozaril to 275 mg daily. REVIEW OF SYSTEMS: Ambulation is impaired. No CV, , pulmonary, eye, ENT system symptoms on review, quite withdrawn. MENTAL STATUS EXAM: Oriented to herself and situation. Speech, often responses monosyllabic. Abstraction fair, computation impaired, language function intact, somewhat paranoid. No suicidal or homicidal ideation. LABORATORY DATA: Reviewed. IMPRESSION: Schizoaffective disorder, bipolar type, mixed with psychotic features. Rest unchanged. PLAN: Clozaril has been increased. Continue Rest unchanged. Valproic acid level therapeutic at 70, continue Depakote. GEORGE REYNOLDS MD DR: JAQUELIN/radha JOB#: [id number] / [id number]
[2017-08-24 05:56] VITALS: BP 132/70
[2017-08-24] MEDS: PANTOPRAZOLE 40 MG TABLET. PO SCH (08:50)
[2017-08-24] MEDS: LEVOTHYROXINE 150 MCG TABLET PO SCH (08:50)
[2017-08-24] MEDS: ASPIRIN 81 MG TAB.CHEW PO SCH (10:03)
[2017-08-24] MEDS: cloZAPine 100 MG TABLET PO SCH (10:04)
[2017-08-24] MEDS: SERTRALINE 25 MG TABLET. PO SCH (10:05)
[2017-08-24] MEDS: ACETAMINOPHEN 325 MG TABLET PO SCH ×2 (10:05→21:12)
[2017-08-24] MEDS: MELOXICAM 7.5 MG TABLET PO SCH (10:06)
[2017-08-24] MEDS: POLYETHYLENE GLYCOL 3350 17 GM PACKET. PO SCH (10:06)
[2017-08-24] MEDS: PSYLLIUM SEED (WITH SUGAR) PACKET. PO SCH (10:06)
[2017-08-24] MEDS: NICOTINE 14MG PATCH. TD SCH (10:09)
[2017-08-24] MEDS: HEPARIN PF for SUB-Q USE 5,000 UNIT/0.5 ML VIAL. SQ SCH ×2 (10:09→21:10)
[2017-08-24 15:59] VITALS: BP 119/80
[2017-08-24] MEDS: metFORMIN XR 500 MG TAB.ER.24H PO SCH (16:21)
--- NOTE | 2017-08-24 19:55 | PDOC ---
Exam Note: Andrew Note: Please also refer to the separate dictated note~for this date of service dictated separately.~Patient seen individually. Discussed the patient with Nursing staff reviewed the chart.~Reviewed interim history and current functioning. Reviewed vital signs,~Labs/ Radiology~and current medications noted below. Continue current treatment with the changes noted in the dictated addendum note Assessment: Vital Signs: Vital Signs Date Time Temp Pulse Resp B/P (MAP) Pulse Ox O2 Delivery O2 Flow Rate FiO2 08/24/17 15:59 97.8 90 18 119/80 (93) 94 08/23/17 06:25 Room Air 08/22/17 16:18 94.0 I&O Intake and Output 08/24/17 07:00 Intake Total 720 ml Balance 720 ml Intake Oral 720 ml # Bowel Movements 1 Labs: Laboratory Tests Test 08/24/17 07:40 Glucose (Fingerstick) 114 mg/dL (70-99) H Current Medications: Meds: Current Medications Benztropine Mesylate (Cogentin) 1 mg BID PO Last administered on 08/19/17at 11: 44; Start 08/13/17 at 09:00; Stop 08/19/17 at 09:00; Status DC Clozapine (Clozaril) 100 mg DAILY PO Last administered on 08/16/17at 09:31; Start 08/13/17 at 09:00; Stop 08/16/17 at 17:55; Status DC Clozapine (Clozaril) 150 mg QHS PO Last administered on 08/15/17at 19:52; Start 08/13/17 at 21:00; Stop 08/16/17 at 17:55; Status DC Divalproex Sodium (Depakote Er) 1,000 mg QHS PO Last administered on 08/17/17at 19:59; Start 08/13/17 at 21:00; Stop 08/18/17 at 19:25; Status DC Sertraline HCl (Zoloft) 25 mg DAILY PO Last administered on 08/24/17at 10:05; Start 08/13/17 at 09:00 Acetaminophen (Tylenol) 650 mg PRN Q6HRS PRN PO PAIN / TEMP; Start 08/12/17 at 21:15 Multi-Ingredient Ointment (Analgesic [place]) 1 glenny PRN QID PRN TP MUSCLE PAIN; Start 08/12/17 at 21:15 Al Hydroxide/Mg Hydroxide (Mylanta Plus Xs) 15 ml PRN AFTMEALHC PRN PO DYSPEPSIA; Start 08/12/17 at 21:15; Stop 08/13/17 at 17:19; Status DC Magnesium Hydroxide (Milk Of Magnesia) 2,400 mg PRN QHS PRN PO CONSTIPATION; Start 08/12/17 at 21:15; Stop 08/13/17 at 17:19; Status DC Nicotine (Nicoderm Cq 14mg) 1 patch DAILY TD Last administered on 08/24/17 10: 09; Start 08/13/17 at 09:00 Acetaminophen (Tylenol) 650 mg BID PO Last administered on 08/24/17 10:05; Start 08/13/17 at 09:00 Acetaminophen (Tylenol) 650 mg PRN Q4HRS PRN PO PAIN / TEMP; Start 08/12/17 at 23:00; Stop 08/13/17 at 12:14; Status DC Aspirin (Children'S Aspirin) 81 mg DAILY PO Last administered on 08/24/17 10: 03; Start 08/13/17 at 09:00 Levothyroxine Sodium (Synthroid) 150 mcg DAILY06 PO Last administered on 08:50; Start 08/13/17 at 06:00 Meloxicam (Mobic) 7.5 mg DAILY PO Last administered on 08/24/17 10:06; Start 08/13/17 at 09:00 Metformin HCl (Glucophage Xr) 1,000 mg DAILYWSUP PO Last administered on 16:21; Start 08/13/17 at 17:00 Niacin (Slo-Niacin) 500 mg QHS PO Last administered on 08/23/17 19:07; Start 08/13/17 at 21:00 Pantoprazole Sodium (Protonix) 40 mg DAILYAC PO Last administered on 08/24/17 08:50; Start 08/13/17 at 07:30 Polyethylene Glycol (miraLAX) 17 gm DAILY PO Last administered on 08/24/17 10: 06; Start 08/13/17 at 09:00 Psyllium Hydrophilic Mucilloid (Metamucil) 1 pkt DAILY PO Last administered on 08/23/17at 10:55; Start 08/13/17 at 09:00 Heparin Sodium (Porcine) 5,000 unit Q12HR SQ Last administered on 08/24/17at 10: 09; Start 08/13/17 at 21:00 Clozapine (Clozaril) 250 mg DAILY PO Last administered on 08/22/17at 09:02; Start 08/17/17 at 09:00; Stop 08/22/17 at 18:42; Status DC Benztropine Mesylate (Cogentin) 1 mg QHS PO Last administered on 08/20/17at 19: 47; Start 08/19/17 at 21:00; Stop 08/21/17 at 18:45; Status DC Divalproex Sodium (Depakote Er) 1,500 mg QHS PO Last administered on 08/23/17at 19:07; Start 08/18/17 at 21:00 Clozapine (Clozaril) 275 mg DAILY PO Last administered on 08/24/17at 10:04; Start 08/23/17 at 09:00 Active Scripts Active Reported Clozapine 100 Mg Tablet 150 Mg PO QHS Zoloft (Sertraline Hcl) 25 Mg Tablet 25 Mg PO DAILY Niaspan (Niacin) 500 Mg Tab.er.24h 500 Mg PO QHS Omeprazole 20 Mg Tablet.dr 20 Mg PO DAILYAC Levothyroxine Sodium 150 Mcg Tablet 150 Mcg PO DAILYAC Tylenol (Acetaminophen) 325 Mg Tablet 650 Mg PO BID Benztropine Mesylate 1 Mg Tablet 1 Mg PO BID Multivitamins (Multivitamin) 1 Each Tablet 1 Each PO DAILY Meloxicam 7.5 Mg Tablet 7.5 Mg PO DAILY Clozapine 100 Mg Tablet 100 Mg PO DAILY Metamucil Powder (Psyllium Seed/Aspartame) 283 Gm Powder 1 Packet PO DAILY Tylenol (Acetaminophen) 325 Mg Tablet 650 Mg PO PRN Q4HRS PRN Polyethylene Glycol 3350 2,500 Gm Powder 17 Gm PO DAILY Aspirin 81 Mg Tab.chew 1 Tab PO DAILY Depakote Er (Divalproex Sodium) 500 Mg Tab.er.24h 1,000 Mg PO QHS Metformin Hcl Er (Metformin Hcl) 500 Mg Tab.er.24h 1,000 Mg PO DAILYWSUP Milk Of Magnesia (Magnesium Hydroxide) 400 Mg/5 Ml Oral.susp 30 Ml PO PRN BID PRN Almacone Liquid (Mag Hydrox/Al Hydrox/Simeth) 355 Ml Oral.susp 30 Ml PO PRN Q6HRS PRN I have reviewed the current psychotropics carefully including drug interactions. Risk benefit ratio favors no change other than as noted in my dictated progress note. Diagnosis: Problems: (1) Anxiety disorder (2) Impulse control disorder (3) Schizoaffective disorder (4) Schizoaffective disorder, chronic condition with acute exacerbation (5) Borderline intellectual disability GEORGE REYNOLDS MD Aug 24, 2017 19:55
[2017-08-24] MEDS: NIACIN ER 500 MG TABLET.ER PO SCH (21:12)
[2017-08-24] MEDS: DIVALPROEX ER 500 MG TAB.ER.24H PO SCH (21:13)
[2017-08-25 06:04] VITALS: BP 121/73
[2017-08-25] MEDS: LEVOTHYROXINE 150 MCG TABLET PO SCH (06:51)
[2017-08-25] MEDS: ASPIRIN 81 MG TAB.CHEW PO SCH (08:02)
[2017-08-25] MEDS: MELOXICAM 7.5 MG TABLET PO SCH (08:02)
[2017-08-25] MEDS: POLYETHYLENE GLYCOL 3350 17 GM PACKET. PO SCH (08:03)
[2017-08-25] MEDS: PSYLLIUM SEED (WITH SUGAR) PACKET. PO SCH (08:03)
[2017-08-25] MEDS: cloZAPine 100 MG TABLET PO SCH (08:03)
[2017-08-25] MEDS: PANTOPRAZOLE 40 MG TABLET. PO SCH (08:04)
[2017-08-25] MEDS: ACETAMINOPHEN 325 MG TABLET PO SCH ×2 (08:04→21:16)
[2017-08-25] MEDS: SERTRALINE 25 MG TABLET. PO SCH (08:04)
[2017-08-25] MEDS: HEPARIN PF for SUB-Q USE 5,000 UNIT/0.5 ML VIAL. SQ SCH ×2 (08:05→21:19)
[2017-08-25] MEDS: NICOTINE 14MG PATCH. TD SCH (08:06)
[2017-08-25 16:25] VITALS: BP 115/78
[2017-08-25] MEDS: metFORMIN XR 500 MG TAB.ER.24H PO SCH (18:26)
[2017-08-25] MEDS: DIVALPROEX ER 500 MG TAB.ER.24H PO SCH (21:16)
[2017-08-25] MEDS: NIACIN ER 500 MG TABLET.ER PO SCH (21:16)
[2017-08-26 05:58] VITALS: BP 112/63
[2017-08-26] MEDS: LEVOTHYROXINE 150 MCG TABLET PO SCH ×2 (06:00→06:15)
[2017-08-26] MEDS: ACETAMINOPHEN 325 MG TABLET PO SCH ×2 (08:18→20:19)
[2017-08-26] MEDS: SERTRALINE 25 MG TABLET. PO SCH (08:18)
[2017-08-26] MEDS: ASPIRIN 81 MG TAB.CHEW PO SCH (08:18)
[2017-08-26] MEDS: POLYETHYLENE GLYCOL 3350 17 GM PACKET. PO SCH (08:18)
[2017-08-26] MEDS: PANTOPRAZOLE 40 MG TABLET. PO SCH (08:18)
[2017-08-26] MEDS: cloZAPine 100 MG TABLET PO SCH (08:18)
[2017-08-26] MEDS: PSYLLIUM SEED (WITH SUGAR) PACKET. PO SCH (08:18)
[2017-08-26] MEDS: NICOTINE 14MG PATCH. TD SCH (08:19)
[2017-08-26] MEDS: MELOXICAM 7.5 MG TABLET PO SCH (08:19)
--- NOTE | 2017-08-26 08:38 | PN ---
DATE: 08/24/2017 PSYCHIATRIC PROGRESS NOTE This is a late entry 08/24/2017 covers elements not covered in my initial note 08/24/2017. SUBJECTIVE: I met with the patient evening of 08/24/2017. She was staffed at a treatment team meeting with the entire team morning of 08/24/2017. Reviewed her history, diagnosis. The appetite 60%, sleeping about 7 hours. She was coming out of the room somewhat more gradually. Still does not participate in groups. Takes her medications whole, slept 7-3/4 hours previous evening. REVIEW OF SYSTEMS: Ambulation impaired, in wheelchair. No CV, , pulmonary, eye system symptoms on review. Cooperative in the morning, quite labile in the evening as I met with her. MENTAL STATUS EXAM: Oriented to herself, not very verbally interactive. Insight, judgment, recent memory is impaired. Language function intact. Mood and affect somewhat labile. Overall, functioning consistent with her borderline IQ. LABORATORY DATA: Reviewed. IMPRESSION: Schizoaffective disorder, bipolar type, mixed with psychotic features, borderline intellectual functioning. Rest unchanged. PLAN: Continue current psychotropics. Clozaril was increased. Depakote level is therapeutic. Adjust as indicated clinically. MAN Ann REYNOLDS MD DR: JAQUELIN/radha JOB#: [id number] / [id number]
--- NOTE | 2017-08-26 08:59 | PN ---
DATE: 08/23/2017 PSYCHIATRIC PROGRESS NOTE This is a late entry 08/23/2017 covers elements not covered in my initial note 08/23/2017. Met with the patient in the evening of 08/23/2017, patient slept 6-1/2 hours previous evening, somewhat withdrawn, which is typical for her, but spent more time in the day room on 08/23/2017, then in days previously. Compliant with medications. Overall, intellectual functioning consistent with her borderline IQ . Somewhat suspicious about taking her metformin. Attended physical therapy, was able to state "I did better today" as I questioned her. REVIEW OF SYSTEMS: Ambulation impaired, in wheelchair. No CV, , pulmonary, eye system symptoms on review, not very verbal. MENTAL STATUS EXAM: Oriented to herself and situation. Speech moderate latency, often responses monosyllabic. Abstraction fair, computation impaired, language function intact, attention span short. Mood and affect still withdrawn. No suicidal or homicidal ideation. LABORATORY DATA: Reviewed. IMPRESSION: Schizoaffective disorder, bipolar type, borderline intellectual functioning. PLAN: Continue current psychotropics. Valproic acid level therapeutic at 70. Discussed with pharmacy staff. Clozaril has been increased due to 275 mg a day. Absolute neutrophil count resurface. MAN Ann REYNOLDS MD DR: JAQUELIN/radha JOB#: [id number] / [id number]
[2017-08-26] MEDS: HEPARIN PF for SUB-Q USE 5,000 UNIT/0.5 ML VIAL. SQ SCH ×2 (09:00→20:22)
--- NOTE | 2017-08-26 09:42 | PDOC ---
Exam Note: Andrew Note: Please also refer to the separate dictated note~for this date of service dictated separately.~Patient seen individually. Discussed the patient with Nursing staff reviewed the chart.~Reviewed interim history and current functioning. Reviewed vital signs,~Labs/ Radiology~and current medications noted below. Continue current treatment with the changes noted in the dictated addendum note. This is a late entry for date of service August 25, 2017 Assessment: Vital Signs: VS - Last 72 Hours, by Label Date Time Temp Pulse Resp B/P (MAP) Pulse Ox O2 Delivery O2 Flow Rate FiO2 08/26/17 05:58 98.2 81 16 112/63 (79) 92 08/25/17 16:25 99.2 90 16 115/78 (90) 94 Room Air 08/25/17 06:04 98.1 84 16 121/73 (89) 94 08/24/17 15:59 97.8 90 18 119/80 (93) 94 08/24/17 05:56 97.6 87 16 132/70 (90) 96 08/23/17 15:52 97.8 86 20 118/84 (95) 92 Vital Signs Date Time Temp Pulse Resp B/P (MAP) Pulse Ox O2 Delivery O2 Flow Rate FiO2 08/26/17 05:58 98.2 81 16 112/63 (79) 92 08/25/17 16:25 Room Air 08/22/17 16:18 94.0 I&O Intake and Output 08/26/17 07:00 Intake Total 1440 ml Output Total 1 ml Balance 1439 ml Intake Oral 1440 ml Output Stool Total 1 ml Labs: Laboratory Tests Test 08/26/17 07:44 Glucose (Fingerstick) 104 mg/dL (70-99) H Current Medications: Meds: Current Medications Benztropine Mesylate (Cogentin) 1 mg BID PO Last administered on 08/19/17at 11: 44; Start 08/13/17 at 09:00; Stop 08/19/17 at 09:00; Status DC Clozapine (Clozaril) 100 mg DAILY PO Last administered on 08/16/17at 09:31; Start 08/13/17 at 09:00; Stop 08/16/17 at 17:55; Status DC Clozapine (Clozaril) 150 mg QHS PO Last administered on 08/15/17at 19:52; Start 08/13/17 at 21:00; Stop 08/16/17 at 17:55; Status DC Divalproex Sodium (Depakote Er) 1,000 mg QHS PO Last administered on 08/17/17at 19:59; Start 08/13/17 at 21:00; Stop 08/18/17 at 19:25; Status DC Sertraline HCl (Zoloft) 25 mg DAILY PO Last administered on 08/26/17at 08:18; Start 08/13/17 at 09:00 Acetaminophen (Tylenol) 650 mg PRN Q6HRS PRN PO PAIN / TEMP; Start 08/12/17 at 21:15 Multi-Ingredient Ointment (Analgesic [place]) 1 glenny PRN QID PRN TP MUSCLE PAIN; Start 08/12/17 at 21:15 Al Hydroxide/Mg Hydroxide (Mylanta Plus Xs) 15 ml PRN AFTMEALHC PRN PO DYSPEPSIA; Start 08/12/17 at 21:15; Stop 08/13/17 at 17:19; Status DC Magnesium Hydroxide (Milk Of Magnesia) 2,400 mg PRN QHS PRN PO CONSTIPATION; Start 08/12/17 at 21:15; Stop 08/13/17 at 17:19; Status DC Nicotine (Nicoderm Cq 14mg) 1 patch DAILY TD Last administered on 08/26/17at 08: 19; Start 08/13/17 at 09:00 Acetaminophen (Tylenol) 650 mg BID PO Last administered on 08/26/17at 08:18; Start 08/13/17 at 09:00 Acetaminophen (Tylenol) 650 mg PRN Q4HRS PRN PO PAIN / TEMP; Start 08/12/17 at 23:00; Stop 08/13/17 at 12:14; Status DC Aspirin (Children'S Aspirin) 81 mg DAILY PO Last administered on 08/26/17at 08: 18; Start 08/13/17 at 09:00 Levothyroxine Sodium (Synthroid) 150 mcg DAILY06 PO Last administered on at 06:00; Start 08/13/17 at 06:00 Meloxicam (Mobic) 7.5 mg DAILY PO Last administered on 08/26/17at 08:19; Start 08/13/17 at 09:00 Metformin HCl (Glucophage Xr) 1,000 mg DAILYWSUP PO Last administered on 18:26; Start 08/13/17 at 17:00 Niacin (Slo-Niacin) 500 mg QHS PO Last administered on 08/25/17at 21:16; Start 08/13/17 at 21:00 Pantoprazole Sodium (Protonix) 40 mg DAILYAC PO Last administered on 08/26/17at 08:18; Start 08/13/17 at 07:30 Polyethylene Glycol (miraLAX) 17 gm DAILY PO Last administered on 08/26/17at 08: 18; Start 08/13/17 at 09:00 Psyllium Hydrophilic Mucilloid (Metamucil) 1 pkt DAILY PO Last administered on 08/26/17 08:18; Start 08/13/17 at 09:00 Heparin Sodium (Porcine) 5,000 unit Q12HR SQ Last administered on 08/26/17at 09: 00; Start 08/13/17 at 21:00 Clozapine (Clozaril) 250 mg DAILY PO Last administered on 08/22/17at 09:02; Start 08/17/17 at 09:00; Stop 08/22/17 at 18:42; Status DC Benztropine Mesylate (Cogentin) 1 mg QHS PO Last administered on 08/20/17at 19: 47; Start 08/19/17 at 21:00; Stop 08/21/17 at 18:45; Status DC Divalproex Sodium (Depakote Er) 1,500 mg QHS PO Last administered on 08/25/17at 21:16; Start 08/18/17 at 21:00 Clozapine (Clozaril) 275 mg DAILY PO Last administered on 08/26/17at 08:18; Start 08/23/17 at 09:00 Active Scripts Active Reported Clozapine 100 Mg Tablet 150 Mg PO QHS Zoloft (Sertraline Hcl) 25 Mg Tablet 25 Mg PO DAILY Niaspan (Niacin) 500 Mg Tab.er.24h 500 Mg PO QHS Omeprazole 20 Mg Tablet.dr 20 Mg PO DAILYAC Levothyroxine Sodium 150 Mcg Tablet 150 Mcg PO DAILYAC Tylenol (Acetaminophen) 325 Mg Tablet 650 Mg PO BID Benztropine Mesylate 1 Mg Tablet 1 Mg PO BID Multivitamins (Multivitamin) 1 Each Tablet 1 Each PO DAILY Meloxicam 7.5 Mg Tablet 7.5 Mg PO DAILY Clozapine 100 Mg Tablet 100 Mg PO DAILY Metamucil Powder (Psyllium Seed/Aspartame) 283 Gm Powder 1 Packet PO DAILY Tylenol (Acetaminophen) 325 Mg Tablet 650 Mg PO PRN Q4HRS PRN Polyethylene Glycol 3350 2,500 Gm Powder 17 Gm PO DAILY Aspirin 81 Mg Tab.chew 1 Tab PO DAILY Depakote Er (Divalproex Sodium) 500 Mg Tab.er.24h 1,000 Mg PO QHS Metformin Hcl Er (Metformin Hcl) 500 Mg Tab.er.24h 1,000 Mg PO DAILYWSUP Milk Of Magnesia (Magnesium Hydroxide) 400 Mg/5 Ml Oral.susp 30 Ml PO PRN BID PRN Almacone Liquid (Mag Hydrox/Al Hydrox/Simeth) 355 Ml Oral.susp 30 Ml PO PRN Q6HRS PRN I have reviewed the current psychotropics carefully including drug interactions. Risk benefit ratio favors no change other than as noted in my dictated progress note. Diagnosis: Problems: (1) Anxiety disorder (2) Impulse control disorder (3) Schizoaffective disorder (4) Schizoaffective disorder, chronic condition with acute exacerbation (5) Borderline intellectual disability GEORGE REYNOLDS MD Aug 26, 2017 09:42
[2017-08-26 16:13] VITALS: BP 128/73
[2017-08-26] MEDS: metFORMIN XR 500 MG TAB.ER.24H PO SCH (18:22)
[2017-08-26] MEDS: NIACIN ER 500 MG TABLET.ER PO SCH (20:18)
[2017-08-26] MEDS: DIVALPROEX ER 500 MG TAB.ER.24H PO SCH (20:18)
--- NOTE | 2017-08-26 22:17 | PDOC ---
Exam Note: Andrew Note: Please also refer to the separate dictated note~for this date of service dictated separately.~Patient seen individually. Discussed the patient with Nursing staff reviewed the chart.~Reviewed interim history and current functioning. Reviewed vital signs,~Labs/ Radiology~and current medications noted below. Continue current treatment with the changes noted in the dictated addendum note Assessment: Vital Signs: Vital Signs Date Time Temp Pulse Resp B/P (MAP) Pulse Ox O2 Delivery O2 Flow Rate FiO2 08/26/17 16:13 98.1 92 16 128/73 (91) 95 08/25/17 16:25 Room Air 08/22/17 16:18 94.0 I&O Intake and Output 08/26/17 07:00 Intake Total 1440 ml Output Total 1 ml Balance 1439 ml Intake Oral 1440 ml Output Stool Total 1 ml Labs: Laboratory Tests Test 08/26/17 07:44 Glucose (Fingerstick) 104 mg/dL (70-99) H Current Medications: Meds: Current Medications Benztropine Mesylate (Cogentin) 1 mg BID PO Last administered on 08/19/17at 11: 44; Start 08/13/17 at 09:00; Stop 08/19/17 at 09:00; Status DC Clozapine (Clozaril) 100 mg DAILY PO Last administered on 08/16/17at 09:31; Start 08/13/17 at 09:00; Stop 08/16/17 at 17:55; Status DC Clozapine (Clozaril) 150 mg QHS PO Last administered on 08/15/17at 19:52; Start 08/13/17 at 21:00; Stop 08/16/17 at 17:55; Status DC Divalproex Sodium (Depakote Er) 1,000 mg QHS PO Last administered on 08/17/17at 19:59; Start 08/13/17 at 21:00; Stop 08/18/17 at 19:25; Status DC Sertraline HCl (Zoloft) 25 mg DAILY PO Last administered on 08/26/17at 08:18; Start 08/13/17 at 09:00 Acetaminophen (Tylenol) 650 mg PRN Q6HRS PRN PO PAIN / TEMP; Start 08/12/17 at 21:15 Multi-Ingredient Ointment (Analgesic [place]) 1 glenny PRN QID PRN TP MUSCLE PAIN; Start 08/12/17 at 21:15 Al Hydroxide/Mg Hydroxide (Mylanta Plus Xs) 15 ml PRN AFTMEALHC PRN PO DYSPEPSIA; Start 08/12/17 at 21:15; Stop 08/13/17 at 17:19; Status DC Magnesium Hydroxide (Milk Of Magnesia) 2,400 mg PRN QHS PRN PO CONSTIPATION; Start 08/12/17 at 21:15; Stop 08/13/17 at 17:19; Status DC Nicotine (Nicoderm Cq 14mg) 1 patch DAILY TD Last administered on 08/26/17 08: 19; Start 08/13/17 at 09:00 Acetaminophen (Tylenol) 650 mg BID PO Last administered on 08/26/17 20:19; Start 08/13/17 at 09:00 Acetaminophen (Tylenol) 650 mg PRN Q4HRS PRN PO PAIN / TEMP; Start 08/12/17 at 23:00; Stop 08/13/17 at 12:14; Status DC Aspirin (Children'S Aspirin) 81 mg DAILY PO Last administered on 08/26/17 08: 18; Start 08/13/17 at 09:00 Levothyroxine Sodium (Synthroid) 150 mcg DAILY06 PO Last administered on at 06:00; Start 08/13/17 at 06:00 Meloxicam (Mobic) 7.5 mg DAILY PO Last administered on 08/26/17 08:19; Start 08/13/17 at 09:00 Metformin HCl (Glucophage Xr) 1,000 mg DAILYWSUP PO Last administered on 18:22; Start 08/13/17 at 17:00 Niacin (Slo-Niacin) 500 mg QHS PO Last administered on 08/26/17 20:18; Start 08/13/17 at 21:00 Pantoprazole Sodium (Protonix) 40 mg DAILYAC PO Last administered on 08/26/17 08:18; Start 08/13/17 at 07:30 Polyethylene Glycol (miraLAX) 17 gm DAILY PO Last administered on 08/26/17at 08: 18; Start 08/13/17 at 09:00 Psyllium Hydrophilic Mucilloid (Metamucil) 1 pkt DAILY PO Last administered on 1/27/18at 08:18; Start 08/13/17 at 09:00 Heparin Sodium (Porcine) 5,000 unit Q12HR SQ Last administered on 08/26/17at 20: 22; Start 08/13/17 at 21:00 Clozapine (Clozaril) 250 mg DAILY PO Last administered on 08/22/17at 09:02; Start 08/17/17 at 09:00; Stop 08/22/17 at 18:42; Status DC Benztropine Mesylate (Cogentin) 1 mg QHS PO Last administered on 08/20/17at 19: 47; Start 08/19/17 at 21:00; Stop 08/21/17 at 18:45; Status DC Divalproex Sodium (Depakote Er) 1,500 mg QHS PO Last administered on 08/26/17at 20:18; Start 08/18/17 at 21:00 Clozapine (Clozaril) 275 mg DAILY PO Last administered on 08/26/17at 08:18; Start 08/23/17 at 09:00 Active Scripts Active Reported Clozapine 100 Mg Tablet 150 Mg PO QHS Zoloft (Sertraline Hcl) 25 Mg Tablet 25 Mg PO DAILY Niaspan (Niacin) 500 Mg Tab.er.24h 500 Mg PO QHS Omeprazole 20 Mg Tablet.dr 20 Mg PO DAILYAC Levothyroxine Sodium 150 Mcg Tablet 150 Mcg PO DAILYAC Tylenol (Acetaminophen) 325 Mg Tablet 650 Mg PO BID Benztropine Mesylate 1 Mg Tablet 1 Mg PO BID Multivitamins (Multivitamin) 1 Each Tablet 1 Each PO DAILY Meloxicam 7.5 Mg Tablet 7.5 Mg PO DAILY Clozapine 100 Mg Tablet 100 Mg PO DAILY Metamucil Powder (Psyllium Seed/Aspartame) 283 Gm Powder 1 Packet PO DAILY Tylenol (Acetaminophen) 325 Mg Tablet 650 Mg PO PRN Q4HRS PRN Polyethylene Glycol 3350 2,500 Gm Powder 17 Gm PO DAILY Aspirin 81 Mg Tab.chew 1 Tab PO DAILY Depakote Er (Divalproex Sodium) 500 Mg Tab.er.24h 1,000 Mg PO QHS Metformin Hcl Er (Metformin Hcl) 500 Mg Tab.er.24h 1,000 Mg PO DAILYWSUP Milk Of Magnesia (Magnesium Hydroxide) 400 Mg/5 Ml Oral.susp 30 Ml PO PRN BID PRN Almacone Liquid (Mag Hydrox/Al Hydrox/Simeth) 355 Ml Oral.susp 30 Ml PO PRN Q6HRS PRN I have reviewed the current psychotropics carefully including drug interactions. Risk benefit ratio favors no change other than as noted in my dictated progress note. Diagnosis: Problems: (1) Anxiety disorder (2) Impulse control disorder (3) Schizoaffective disorder (4) Schizoaffective disorder, chronic condition with acute exacerbation (5) Borderline intellectual disability GEORGE REYNOLDS MD Aug 26, 2017 22:17
[2017-08-27] MEDS: LEVOTHYROXINE 150 MCG TABLET PO SCH (05:32)
[2017-08-27 06:13] VITALS: BP 122/74
[2017-08-27] MEDS: ACETAMINOPHEN 325 MG TABLET PO SCH ×2 (07:49→20:41)
[2017-08-27] MEDS: POLYETHYLENE GLYCOL 3350 17 GM PACKET. PO SCH (07:49)
[2017-08-27] MEDS: NICOTINE 14MG PATCH. TD SCH (07:49)
[2017-08-27] MEDS: SERTRALINE 25 MG TABLET. PO SCH (07:50)
[2017-08-27] MEDS: cloZAPine 100 MG TABLET PO SCH (07:50)
[2017-08-27] MEDS: ASPIRIN 81 MG TAB.CHEW PO SCH (07:50)
[2017-08-27] MEDS: PSYLLIUM SEED (WITH SUGAR) PACKET. PO SCH (07:51)
[2017-08-27] MEDS: MELOXICAM 7.5 MG TABLET PO SCH (07:51)
[2017-08-27] MEDS: PANTOPRAZOLE 40 MG TABLET. PO SCH (07:51)
[2017-08-27] MEDS: HEPARIN PF for SUB-Q USE 5,000 UNIT/0.5 ML VIAL. SQ SCH ×2 (07:52→20:44)
[2017-08-27 16:14] VITALS: BP 135/74
[2017-08-27] MEDS: metFORMIN XR 500 MG TAB.ER.24H PO SCH (16:42)
--- NOTE | 2017-08-27 20:06 | PDOC ---
Exam Note: Andrew Note: Please also refer to the separate dictated note~for this date of service dictated separately.~Patient seen individually. Discussed the patient with Nursing staff reviewed the chart.~Reviewed interim history and current functioning. Reviewed vital signs,~Labs/ Radiology~and current medications noted below. Continue current treatment with the changes noted in the dictated addendum note Assessment: Vital Signs: Vital Signs Date Time Temp Pulse Resp B/P (MAP) Pulse Ox O2 Delivery O2 Flow Rate FiO2 08/27/17 16:14 98.0 77 18 135/74 (94) 97 Room Air 08/22/17 16:18 94.0 I&O Intake and Output 08/27/17 07:00 Intake Total 900 ml Balance 900 ml Intake Oral 900 ml # Bowel Movements 2 Labs: Laboratory Tests Test 08/27/17 07:14 Glucose (Fingerstick) 114 mg/dL (70-99) H Current Medications: Meds: Current Medications Benztropine Mesylate (Cogentin) 1 mg BID PO Last administered on 08/19/17at 11: 44; Start 08/13/17 at 09:00; Stop 08/19/17 at 09:00; Status DC Clozapine (Clozaril) 100 mg DAILY PO Last administered on 08/16/17at 09:31; Start 08/13/17 at 09:00; Stop 08/16/17 at 17:55; Status DC Clozapine (Clozaril) 150 mg QHS PO Last administered on 08/15/17at 19:52; Start 08/13/17 at 21:00; Stop 08/16/17 at 17:55; Status DC Divalproex Sodium (Depakote Er) 1,000 mg QHS PO Last administered on 08/17/17at 19:59; Start 08/13/17 at 21:00; Stop 08/18/17 at 19:25; Status DC Sertraline HCl (Zoloft) 25 mg DAILY PO Last administered on 08/27/17at 07:50; Start 08/13/17 at 09:00 Acetaminophen (Tylenol) 650 mg PRN Q6HRS PRN PO PAIN / TEMP; Start 08/12/17 at 21:15 Multi-Ingredient Ointment (Analgesic [place]) 1 glenny PRN QID PRN TP MUSCLE PAIN; Start 08/12/17 at 21:15 Al Hydroxide/Mg Hydroxide (Mylanta Plus Xs) 15 ml PRN AFTMEALHC PRN PO DYSPEPSIA; Start 08/12/17 at 21:15; Stop 08/13/17 at 17:19; Status DC Magnesium Hydroxide (Milk Of Magnesia) 2,400 mg PRN QHS PRN PO CONSTIPATION; Start 08/12/17 at 21:15; Stop 08/13/17 at 17:19; Status DC Nicotine (Nicoderm Cq 14mg) 1 patch DAILY TD Last administered on 08/27/17at 07: 49; Start 08/13/17 at 09:00 Acetaminophen (Tylenol) 650 mg BID PO Last administered on 08/27/17at 07:49; Start 08/13/17 at 09:00 Acetaminophen (Tylenol) 650 mg PRN Q4HRS PRN PO PAIN / TEMP; Start 08/12/17 at 23:00; Stop 08/13/17 at 12:14; Status DC Aspirin (Children'S Aspirin) 81 mg DAILY PO Last administered on 08/27/17at 07: 50; Start 08/13/17 at 09:00 Levothyroxine Sodium (Synthroid) 150 mcg DAILY06 PO Last administered on at 05:32; Start 08/13/17 at 06:00 Meloxicam (Mobic) 7.5 mg DAILY PO Last administered on 08/27/17 07:51; Start 08/13/17 at 09:00 Metformin HCl (Glucophage Xr) 1,000 mg DAILYWSUP PO Last administered on at 16:42; Start 08/13/17 at 17:00 Niacin (Slo-Niacin) 500 mg QHS PO Last administered on 08/26/17at 20:18; Start 08/13/17 at 21:00 Pantoprazole Sodium (Protonix) 40 mg DAILYAC PO Last administered on 08/27/17 07:51; Start 08/13/17 at 07:30 Polyethylene Glycol (miraLAX) 17 gm DAILY PO Last administered on 08/27/17at 07: 49; Start 08/13/17 at 09:00 Psyllium Hydrophilic Mucilloid (Metamucil) 1 pkt DAILY PO Last administered on 08/27/17at 07:51; Start 08/13/17 at 09:00 Heparin Sodium (Porcine) 5,000 unit Q12HR SQ Last administered on 08/27/17at 07: 52; Start 08/13/17 at 21:00 Clozapine (Clozaril) 250 mg DAILY PO Last administered on 08/22/17at 09:02; Start 08/17/17 at 09:00; Stop 08/22/17 at 18:42; Status DC Benztropine Mesylate (Cogentin) 1 mg QHS PO Last administered on 08/20/17at 19: 47; Start 08/19/17 at 21:00; Stop 08/21/17 at 18:45; Status DC Divalproex Sodium (Depakote Er) 1,500 mg QHS PO Last administered on 08/26/17at 20:18; Start 08/18/17 at 21:00 Clozapine (Clozaril) 275 mg DAILY PO Last administered on 08/27/17at 07:50; Start 08/23/17 at 09:00 Active Scripts Active Reported Clozapine 100 Mg Tablet 150 Mg PO QHS Zoloft (Sertraline Hcl) 25 Mg Tablet 25 Mg PO DAILY Niaspan (Niacin) 500 Mg Tab.er.24h 500 Mg PO QHS Omeprazole 20 Mg Tablet.dr 20 Mg PO DAILYAC Levothyroxine Sodium 150 Mcg Tablet 150 Mcg PO DAILYAC Tylenol (Acetaminophen) 325 Mg Tablet 650 Mg PO BID Benztropine Mesylate 1 Mg Tablet 1 Mg PO BID Multivitamins (Multivitamin) 1 Each Tablet 1 Each PO DAILY Meloxicam 7.5 Mg Tablet 7.5 Mg PO DAILY Clozapine 100 Mg Tablet 100 Mg PO DAILY Metamucil Powder (Psyllium Seed/Aspartame) 283 Gm Powder 1 Packet PO DAILY Tylenol (Acetaminophen) 325 Mg Tablet 650 Mg PO PRN Q4HRS PRN Polyethylene Glycol 3350 2,500 Gm Powder 17 Gm PO DAILY Aspirin 81 Mg Tab.chew 1 Tab PO DAILY Depakote Er (Divalproex Sodium) 500 Mg Tab.er.24h 1,000 Mg PO QHS Metformin Hcl Er (Metformin Hcl) 500 Mg Tab.er.24h 1,000 Mg PO DAILYWSUP Milk Of Magnesia (Magnesium Hydroxide) 400 Mg/5 Ml Oral.susp 30 Ml PO PRN BID PRN Almacone Liquid (Mag Hydrox/Al Hydrox/Simeth) 355 Ml Oral.susp 30 Ml PO PRN Q6HRS PRN I have reviewed the current psychotropics carefully including drug interactions. Risk benefit ratio favors no change other than as noted in my dictated progress note. Diagnosis: Problems: (1) Anxiety disorder (2) Impulse control disorder (3) Schizoaffective disorder (4) Schizoaffective disorder, chronic condition with acute exacerbation (5) Borderline intellectual disability GEORGE REYNOLDS MD Aug 27, 2017 20:06
--- NOTE | 2017-08-27 20:32 | PN ---
DATE: 08/25/2017 This is a late entry 08/25/2017 covers elements not covered in my initial note 08/25/2017. Met with the patient the evening of 08/25/2017. She refused a.m. medications. Nursing staff gave her a pop when she was very appreciative of this, then took her medications. REVIEW OF SYSTEMS: Ambulation impaired, in wheelchair. No CV, , pulmonary, eye system symptoms on review. Reliability varies. MENTAL STATUS EXAM: Oriented to herself and situation. Speech moderate latency, often responses monosyllabic. Abstraction fair, computation impaired, not very verbal, still somewhat paranoid. IMPRESSION: Schizoaffective disorder, bipolar type, mixed with psychotic features. PLAN: Continue current psychotropics. Valproic acid level therapeutic. May need to increase Clozaril after the next blood work. MAN Ann REYNOLDS MD DR: JAQUELIN/rdaha JOB#: [id number] / [id number]
[2017-08-27] MEDS: NIACIN ER 500 MG TABLET.ER PO SCH (20:41)
[2017-08-27] MEDS: DIVALPROEX ER 500 MG TAB.ER.24H PO SCH (20:41)
--- NOTE | 2017-08-27 22:40 | PN ---
DATE: 08/26/2017 This note covers elements not covered in my initial note on 08/26/2017. SUBJECTIVE: The patient has been more compliant with medications. Patient has been making bizarre statements at age 16. Her one daughter had . Details unclear. REVIEW OF SYSTEMS: Ambulation impaired, in wheelchair. No CV, , pulmonary, eye system symptoms on review. MENTAL STATUS EXAM: Oriented to herself and situation. Speech moderate latency, often responses monosyllabic. Abstraction fair, computation impaired, language function intact. Mood and affect remain somewhat labile, at times depressed. LABORATORY DATA: Reviewed. IMPRESSION: Schizoaffective disorder, bipolar type, mixed with psychotic features. Rest unchanged. PLAN: Continue current psychotropics, may increase Clozaril post next labs and normal [facility]. MAN Ann REYNOLDS MD DR: JAQUELIN/radha JOB#: [id number] / [id number]
[2017-08-28] MEDS: LEVOTHYROXINE 150 MCG TABLET PO SCH (05:24)
[2017-08-28 06:02] VITALS: BP 121/71
[2017-08-28] MEDS: ASPIRIN 81 MG TAB.CHEW PO SCH (07:45)
[2017-08-28] MEDS: ACETAMINOPHEN 325 MG TABLET PO SCH ×2 (07:45→19:52)
[2017-08-28] MEDS: PANTOPRAZOLE 40 MG TABLET. PO SCH (07:45)
[2017-08-28] MEDS: SERTRALINE 25 MG TABLET. PO SCH (07:45)
[2017-08-28] MEDS: cloZAPine 100 MG TABLET PO SCH (07:45)
[2017-08-28] MEDS: PSYLLIUM SEED (WITH SUGAR) PACKET. PO SCH (07:46)
[2017-08-28] MEDS: POLYETHYLENE GLYCOL 3350 17 GM PACKET. PO SCH (07:46)
[2017-08-28] MEDS: MELOXICAM 7.5 MG TABLET PO SCH (07:46)
[2017-08-28] MEDS: HEPARIN PF for SUB-Q USE 5,000 UNIT/0.5 ML VIAL. SQ SCH ×2 (07:51→21:28)
[2017-08-28] MEDS: NICOTINE 14MG PATCH. TD SCH (07:52)
[2017-08-28 09:22] LABS: BASO # 0.2 x10^3/uL (0.0-0.2); BASO % 0 % (0-3); EOS # 0.3 x10^3/uL (0.0-0.7); EOS % 0 % (0-3); HEMATOCRIT 35.7 % (36.0-47.0); HEMOGLOBIN 11.6 g/dL (12.0-15.5); LYMPH # 63.8 x10^3/uL (1.0-4.8); LYMPH % 88 % (24-48); MEAN CORPUSCULAR HEMOGLOBIN 34 pg (25-35); MEAN CORPUSCULAR HGB CONC 33 g/dL (31-37); MEAN CORPUSCULAR VOLUME 104 fL (79-100); MONO # 1.7 x10^3/uL (0.0-1.1); MONO % 2 % (0-9); NEUT % 10 % (31-73); PLATELET COUNT 263 x10^3/uL (140-400); RED BLOOD COUNT 3.45 x10^6/uL (3.50-5.40); RED CELL DISTRIBUTION WIDTH 13.5 % (11.5-14.5)
[2017-08-28 09:26] LABS: ALBUMIN 3.4 g/dL (3.4-5.0); ALBUMIN/GLOBULIN RATIO 0.8 (1.0-1.7); CREATININE 0.8 mg/dL (0.6-1.0); GFR 73.4; TOTAL BILIRUBIN 0.1 mg/dL (0.2-1.0); TOTAL PROTEIN 7.7 g/dL (6.4-8.2)
[2017-08-28 09:41] LABS: WHITE BLOOD COUNT 72.9 x10^3/uL (4.0-11.0)
[2017-08-28 10:32] LABS: % BANDS 1 % (0-9); % EOS 1 % (0-5); % LYMPHS 90 % (24-48); % OTHERS 1 % (0-0); % SEGS 6 % (35-66); PLT ESTIMATE ADEQUATE (ADEQUATE)
[2017-08-28 10:33] LABS: PLATELET CLUMP PRESENT; SMUDGE CELLS PRESENT
[2017-08-28 16:00] VITALS: BP 134/73
[2017-08-28] MEDS: metFORMIN XR 500 MG TAB.ER.24H PO SCH (16:32)
[2017-08-28] MEDS: NIACIN ER 500 MG TABLET.ER PO SCH (19:52)
[2017-08-28] MEDS: DIVALPROEX ER 500 MG TAB.ER.24H PO SCH (19:52)
--- NOTE | 2017-08-28 20:04 | PDOC ---
Exam Note: Andrew Note: Please also refer to the separate dictated note~for this date of service dictated separately.~Patient seen individually. Discussed the patient with Nursing staff reviewed the chart.~Reviewed interim history and current functioning. Reviewed vital signs,~Labs/ Radiology~and current medications noted below. Continue current treatment with the changes noted in the dictated addendum note Assessment: Vital Signs: Vital Signs Date Time Temp Pulse Resp B/P (MAP) Pulse Ox O2 Delivery O2 Flow Rate FiO2 08/28/17 16:00 97.5 83 20 134/73 (93) 94 08/27/17 16:14 Room Air 08/22/17 16:18 94.0 I&O Intake and Output 08/28/17 07:00 Intake Total 840 ml Balance 840 ml Intake Oral 840 ml # Voids 1 # Bowel Movements 1 Labs: Laboratory Tests Test 08/28/17 07:23 08/28/17 09:01 Glucose (Fingerstick) 119 mg/dL (70-99) H White Blood Count 72.9 x10^3/uL (4.0-11.0) *H Red Blood Count 3.45 x10^6/uL (3.50-5.40) L Hemoglobin 11.6 g/dL (12.0-15.5) L Hematocrit 35.7 % (36.0-47.0) L Mean Corpuscular Volume 104 fL (79-100) H Mean Corpuscular Hemoglobin 34 pg (25-35) Mean Corpuscular Hemoglobin Concent 33 g/dL (31-37) Red Cell Distribution Width 13.5 % (11.5-14.5) Platelet Count 263 x10^3/uL (140-400) Neutrophils (%) (Auto) 10 % (31-73) L Lymphocytes (%) (Auto) 88 % (24-48) H Monocytes (%) (Auto) 2 % (0-9) Eosinophils (%) (Auto) 0 % (0-3) Basophils (%) (Auto) 0 % (0-3) Neutrophils # (Auto) 7.0 x10^3uL (1.8-7.7) Lymphocytes # (Auto) 63.8 x10^3/uL (1.0-4.8) H Monocytes # (Auto) 1.7 x10^3/uL (0.0-1.1) H Eosinophils # (Auto) 0.3 x10^3/uL (0.0-0.7) Basophils # (Auto) 0.2 x10^3/uL (0.0-0.2) Segmented Neutrophils % 6 % (35-66) L Band Neutrophils % 1 % (0-9) Lymphocytes % 90 % (24-48) H Eosinophils % 1 % (0-5) Other Cells % 1 % (0-0) H Smudge Cells Present Platelet Estimate Adequate (ADEQUATE) Platelet Clumps, EDTA Present Sodium Level 138 mmol/L (136-145) Potassium Level 4.0 mmol/L (3.5-5.1) Chloride Level 99 mmol/L (98-107) Carbon Dioxide Level 29 mmol/L (21-32) Anion Gap 10 (6-14) Blood Urea Nitrogen 5 mg/dL (7-20) L Creatinine 0.8 mg/dL (0.6-1.0) Estimated GFR (Cockcroft-Gault) 73.4 BUN/Creatinine Ratio 6 (6-20) Glucose Level 179 mg/dL (70-99) H Calcium Level 9.0 mg/dL (8.5-10.1) Magnesium Level 2.0 mg/dL (1.8-2.4) Total Bilirubin 0.1 mg/dL (0.2-1.0) L Aspartate Amino Transferase (AST) 11 U/L (15-37) L Alanine Aminotransferase (ALT) 36 U/L (14-59) Alkaline Phosphatase 124 U/L (46-116) H Total Protein 7.7 g/dL (6.4-8.2) Albumin 3.4 g/dL (3.4-5.0) Albumin/Globulin Ratio 0.8 (1.0-1.7) L Current Medications: Meds: Current Medications Benztropine Mesylate (Cogentin) 1 mg BID PO Last administered on 08/19/17at 11: 44; Start 08/13/17 at 09:00; Stop 08/19/17 at 09:00; Status DC Clozapine (Clozaril) 100 mg DAILY PO Last administered on 08/16/17at 09:31; Start 08/13/17 at 09:00; Stop 08/16/17 at 17:55; Status DC Clozapine (Clozaril) 150 mg QHS PO Last administered on 08/15/17 19:52; Start 08/13/17 at 21:00; Stop 08/16/17 at 17:55; Status DC Divalproex Sodium (Depakote Er) 1,000 mg QHS PO Last administered on 08/17/17at 19:59; Start 08/13/17 at 21:00; Stop 08/18/17 at 19:25; Status DC Sertraline HCl (Zoloft) 25 mg DAILY PO Last administered on 08/28/17 07:45; Start 08/13/17 at 09:00 Acetaminophen (Tylenol) 650 mg PRN Q6HRS PRN PO PAIN / TEMP; Start 08/12/17 at 21:15 Multi-Ingredient Ointment (Analgesic [place]) 1 glenny PRN QID PRN TP MUSCLE PAIN; Start 08/12/17 at 21:15 Al Hydroxide/Mg Hydroxide (Mylanta Plus Xs) 15 ml PRN AFTMEALHC PRN PO DYSPEPSIA; Start 08/12/17 at 21:15; Stop 08/13/17 at 17:19; Status DC Magnesium Hydroxide (Milk Of Magnesia) 2,400 mg PRN QHS PRN PO CONSTIPATION; Start 08/12/17 at 21:15; Stop 08/13/17 at 17:19; Status DC Nicotine (Nicoderm Cq 14mg) 1 patch DAILY TD Last administered on 08/28/17 07: 52; Start 08/13/17 at 09:00 Acetaminophen (Tylenol) 650 mg BID PO Last administered on 08/28/17 19:52; Start 08/13/17 at 09:00 Acetaminophen (Tylenol) 650 mg PRN Q4HRS PRN PO PAIN / TEMP; Start 08/12/17 at 23:00; Stop 08/13/17 at 12:14; Status DC Aspirin (Children'S Aspirin) 81 mg DAILY PO Last administered on 08/28/17 07: 45; Start 08/13/17 at 09:00 Levothyroxine Sodium (Synthroid) 150 mcg DAILY06 PO Last administered on 05:24; Start 08/13/17 at 06:00 Meloxicam (Mobic) 7.5 mg DAILY PO Last administered on 08/28/17 07:46; Start 08/13/17 at 09:00 Metformin HCl (Glucophage Xr) 1,000 mg DAILYWSUP PO Last administered on 16:32; Start 08/13/17 at 17:00 Niacin (Slo-Niacin) 500 mg QHS PO Last administered on 08/28/17 19:52; Start 08/13/17 at 21:00 Pantoprazole Sodium (Protonix) 40 mg DAILYAC PO Last administered on 08/28/17 07:45; Start 08/13/17 at 07:30 Polyethylene Glycol (miraLAX) 17 gm DAILY PO Last administered on 08/28/17 07: 46; Start 08/13/17 at 09:00 Psyllium Hydrophilic Mucilloid (Metamucil) 1 pkt DAILY PO Last administered on 08/28/17 07:46; Start 08/13/17 at 09:00 Heparin Sodium (Porcine) 5,000 unit Q12HR SQ Last administered on 08/28/17 07: 51; Start 08/13/17 at 21:00 Clozapine (Clozaril) 250 mg DAILY PO Last administered on 08/22/17 09:02; Start 08/17/17 at 09:00; Stop 08/22/17 at 18:42; Status DC Benztropine Mesylate (Cogentin) 1 mg QHS PO Last administered on 08/20/17 19: 47; Start 08/19/17 at 21:00; Stop 08/21/17 at 18:45; Status DC Divalproex Sodium (Depakote Er) 1,500 mg QHS PO Last administered on 08/28/17 19:52; Start 08/18/17 at 21:00 Clozapine (Clozaril) 275 mg DAILY PO Last administered on 08/28/17 07:45; Start 08/23/17 at 09:00 Active Scripts Active Reported Clozapine 100 Mg Tablet 150 Mg PO QHS Zoloft (Sertraline Hcl) 25 Mg Tablet 25 Mg PO DAILY Niaspan (Niacin) 500 Mg Tab.er.24h 500 Mg PO QHS Omeprazole 20 Mg Tablet.dr 20 Mg PO DAILYAC Levothyroxine Sodium 150 Mcg Tablet 150 Mcg PO DAILYAC Tylenol (Acetaminophen) 325 Mg Tablet 650 Mg PO BID Benztropine Mesylate 1 Mg Tablet 1 Mg PO BID Multivitamins (Multivitamin) 1 Each Tablet 1 Each PO DAILY Meloxicam 7.5 Mg Tablet 7.5 Mg PO DAILY Clozapine 100 Mg Tablet 100 Mg PO DAILY Metamucil Powder (Psyllium Seed/Aspartame) 283 Gm Powder 1 Packet PO DAILY Tylenol (Acetaminophen) 325 Mg Tablet 650 Mg PO PRN Q4HRS PRN Polyethylene Glycol 3350 2,500 Gm Powder 17 Gm PO DAILY Aspirin 81 Mg Tab.chew 1 Tab PO DAILY Depakote Er (Divalproex Sodium) 500 Mg Tab.er.24h 1,000 Mg PO QHS Metformin Hcl Er (Metformin Hcl) 500 Mg Tab.er.24h 1,000 Mg PO DAILYWSUP Milk Of Magnesia (Magnesium Hydroxide) 400 Mg/5 Ml Oral.susp 30 Ml PO PRN BID PRN Almacone Liquid (Mag Hydrox/Al Hydrox/Simeth) 355 Ml Oral.susp 30 Ml PO PRN Q6HRS PRN I have reviewed the current psychotropics carefully including drug interactions. Risk benefit ratio favors no change other than as noted in my dictated progress note. Diagnosis: Problems: (1) Anxiety disorder (2) Impulse control disorder (3) Schizoaffective disorder (4) Schizoaffective disorder, chronic condition with acute exacerbation (5) Borderline intellectual disability GEORGE REYNOLDS MD Aug 28, 2017 20:04
[2017-08-29] MEDS: LEVOTHYROXINE 150 MCG TABLET PO SCH (05:08)
[2017-08-29 06:14] VITALS: BP 125/77
[2017-08-29] MEDS: PANTOPRAZOLE 40 MG TABLET. PO SCH (08:22)
[2017-08-29] MEDS: POLYETHYLENE GLYCOL 3350 17 GM PACKET. PO SCH (08:23)
[2017-08-29] MEDS: NICOTINE 14MG PATCH. TD SCH (08:23)
[2017-08-29] MEDS: cloZAPine 100 MG TABLET PO SCH (08:23)
[2017-08-29] MEDS: PSYLLIUM SEED (WITH SUGAR) PACKET. PO SCH (08:23)
[2017-08-29] MEDS: ASPIRIN 81 MG TAB.CHEW PO SCH (08:24)
[2017-08-29] MEDS: ACETAMINOPHEN 325 MG TABLET PO SCH ×2 (08:24→20:13)
[2017-08-29] MEDS: SERTRALINE 25 MG TABLET. PO SCH (08:24)
[2017-08-29] MEDS: MELOXICAM 7.5 MG TABLET PO SCH (08:24)
[2017-08-29] MEDS: HEPARIN PF for SUB-Q USE 5,000 UNIT/0.5 ML VIAL. SQ SCH ×2 (08:27→20:15)
--- NOTE | 2017-08-29 14:31 | PN ---
DATE: 08/28/2017 PSYCHIATRIC EVALUATION SUBJECTIVE: The patient was seen today, met with the staff, and chart reviewed. The patient continues to be withdrawn, marked blunting of her affect, able to hold a conversation, but slower to respond to questions. OBSERVATION: VITAL SIGNS: Temperature 97.7, blood pressure 121/71, pulse 81, respirations 16, O2 sat 94%. Slept about 7-1/2 hours last night. The patient denies of having had any falls. The patient's appetite is fair. The patient currently not exhibiting any overt psychotic symptoms, but has an underlying thought disorder and also some paranoia. The patient's labs reviewed. The patient's white cell count 72.9 and also increase in her lymphocytes count. Blood sugar fluctuated from 104 to 119, last glucose level was 179. The patient currently not admitting to having any major physical problems. The patient has a history of leukemia and also pressure ulcer on right ankle. Also has iron deficiency anemia. CURRENT MEDICATIONS: Include clozapine 275 mg daily, mg at night, Zoloft 25 mg daily. The patient's Depakote level 70. IMPRESSION: Schizoaffective disorder, bipolar type mixed with psychotic features. PLAN: To continue with the treatment. SUSANA MCKEON MD DR: JOHAN/radha JOB#: [id number] / [id number]
[2017-08-29 15:59] VITALS: BP 103/71
[2017-08-29] MEDS: metFORMIN XR 500 MG TAB.ER.24H PO SCH (17:20)
[2017-08-29] MEDS: NIACIN ER 500 MG TABLET.ER PO SCH (20:12)
[2017-08-29] MEDS: DIVALPROEX ER 500 MG TAB.ER.24H PO SCH (20:13)
--- NOTE | 2017-08-30 00:23 | PN ---
DATE: 08/27/2017 This late entry 08/27/2017 covers elements not covered in my initial of 08/27/2017. I met with the patient in the evening of 08/27/2017. Overall, the patient remains somewhat withdrawn and isolated, not very verbally interactive, otherwise pleasant. REVIEW OF SYSTEMS: Ambulation impaired, in wheelchair. No CV, , pulmonary, eye, ENT system symptoms on review. Reliability poor. MENTAL STATUS EXAM: Oriented to herself and situation. Speech coherent, often responses monosyllabic. Abstraction fair, computation impaired, language function intact. Mood and affect withdrawn. LABORATORY DATA: Reviewed. IMPRESSION: Unchanged from initial note. PLAN: Continue current psychotropics. GEORGE REYNOLDS MD DR: JAQUELIN/radha JOB#: [id number] / [id number]
[2017-08-30] MEDS: ACETAMINOPHEN 325 MG TABLET PO SCH ×2 (02:29→19:15)
[2017-08-30 06:01] VITALS: BP 140/68
[2017-08-30] MEDS: LEVOTHYROXINE 150 MCG TABLET PO SCH (06:10)
[2017-08-30] MEDS: PANTOPRAZOLE 40 MG TABLET. PO SCH (08:03)
[2017-08-30] MEDS: ASPIRIN 81 MG TAB.CHEW PO SCH (08:03)
[2017-08-30] MEDS: MELOXICAM 7.5 MG TABLET PO SCH (08:05)
[2017-08-30] MEDS: cloZAPine 100 MG TABLET PO SCH (08:05)
[2017-08-30] MEDS: SERTRALINE 25 MG TABLET. PO SCH (08:05)
[2017-08-30] MEDS: PSYLLIUM SEED (WITH SUGAR) PACKET. PO SCH (08:05)
[2017-08-30] MEDS: NICOTINE 14MG PATCH. TD SCH (08:05)
[2017-08-30] MEDS: POLYETHYLENE GLYCOL 3350 17 GM PACKET. PO SCH (08:05)
[2017-08-30] MEDS: HEPARIN PF for SUB-Q USE 5,000 UNIT/0.5 ML VIAL. SQ SCH ×2 (08:10→19:17)
[2017-08-30 15:59] VITALS: BP 141/90
--- NOTE | 2017-08-30 16:56 | PN ---
DATE: 08/29/2017 SUBJECTIVE: The patient was seen today, met with the staff, chart reviewed. The patient's behavior remains the same, some improvement. The patient has not presented with any major behavior problems. The patient continues to show marked blunting of affect and slow to respond to questions. OBSERVATION: VITAL SIGNS: Temperature 97.8, blood pressure 125/77, pulse 83, respirations 16, O2 sat 96%. Slept about 7 hours last night. The patient's current medications include clozapine 275 mg daily, Depakote 1500 mg at night, Zoloft 25 mg daily. ASSESSMENT: Schizoaffective disorder, bipolar type, mixed with psychotic features. PLAN: Continue with the treatment and we will check Depakote level. SUSANA MCKEON MD DR: NIDIA/radha JOB#: [id number] / [id number]
[2017-08-30] MEDS: metFORMIN XR 500 MG TAB.ER.24H PO SCH (17:26)
[2017-08-30] MEDS: NIACIN ER 500 MG TABLET.ER PO SCH (19:15)
[2017-08-30] MEDS: DIVALPROEX ER 500 MG TAB.ER.24H PO SCH (19:15)
[2017-08-31] MEDS: LEVOTHYROXINE 150 MCG TABLET PO SCH (05:39)
[2017-08-31 06:06] VITALS: BP 99/65
--- NOTE | 2017-08-31 07:29 | PN ---
DATE: 08/30/2017 SUBJECTIVE: The patient was seen today, met with the staff, chart reviewed. The patient's behavior has improved, much calmer, slow to respond to questions. Her sleep and appetite have improved. OBSERVATION: VITAL SIGNS: Stable. The patient did not have any falls. The patient is not presenting with any physical complaints. CURRENT MEDICATIONS: Include Clozaril 275 mg daily, Depakote 1500 mg at night, Zoloft 25 mg at night. The patient is not having any major side effects. ASSESSMENT: Schizoaffective disorder, bipolar type, mixed with psychotic features. PLAN: To continue with the treatment. The patient's Depakote level was 17. SUSANA MCKEON MD DR: NIDIA/nts JOB#: [id number] / [id number]
[2017-08-31] MEDS: PSYLLIUM SEED (WITH SUGAR) PACKET. PO SCH (09:23)
[2017-08-31] MEDS: POLYETHYLENE GLYCOL 3350 17 GM PACKET. PO SCH (09:24)
[2017-08-31] MEDS: ASPIRIN 81 MG TAB.CHEW PO SCH (09:24)
[2017-08-31] MEDS: NICOTINE 14MG PATCH. TD SCH (09:24)
[2017-08-31] MEDS: cloZAPine 100 MG TABLET PO SCH (09:25)
[2017-08-31] MEDS: PANTOPRAZOLE 40 MG TABLET. PO SCH (09:25)
[2017-08-31] MEDS: SERTRALINE 25 MG TABLET. PO SCH (09:25)
[2017-08-31] MEDS: ACETAMINOPHEN 325 MG TABLET PO SCH ×2 (09:26→19:39)
[2017-08-31] MEDS: MELOXICAM 7.5 MG TABLET PO SCH (09:26)
[2017-08-31] MEDS: HEPARIN PF for SUB-Q USE 5,000 UNIT/0.5 ML VIAL. SQ SCH ×2 (09:30→19:42)
[2017-08-31 16:02] VITALS: BP 111/76
[2017-08-31] MEDS: metFORMIN XR 500 MG TAB.ER.24H PO SCH (17:00)
[2017-08-31] MEDS: NIACIN ER 500 MG TABLET.ER PO SCH (19:39)
[2017-08-31] MEDS: DIVALPROEX ER 500 MG TAB.ER.24H PO SCH (19:39)
--- NOTE | 2017-09-01 00:51 | DS ---
DATE OF DISCHARGE: 08/31/2017 PSYCHIATRIC DISCHARGE SUMMARY AND PROGRESS NOTE FINAL DIAGNOSES: AXIS I: 1. Schizoaffective disorder, bipolar type, with psychotic features. 2. History of schizophrenia, chronic paranoid with acute exacerbation. 3. Anxiety disorder, unspecified. 4. Impulse control disorder, unspecified. 5. Intellectual disability. AXIS II: None. AXIS III: Diabetes mellitus type 2, hypertension, status post cerebrovascular accident with right hemiplegia, hypothyroidism, leukemia, and history of deep venous thrombosis. REASON FOR ADMISSION: This 57-year-old female referred back to [facility] from [facility] by the primary care doctor because of increased agitation, paranoia, refusing medications, and also difficult to redirect. The patient also getting paranoid, suspicious, thought people are trying to steal money from her, refusing the medications. The patient has a history of intellectual disability, schizoaffective disorder, bipolar type and also history of CVA and has been increasingly psychotic, paranoid, with marked agitation, refusing treatments, not sleeping well, decreased appetite, also having significant mood swings. 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 HOSPITAL COURSE: The patient had a physical exam, routine lab work including CBC, chem profile, urinalysis. The patient's labs: RBC was low at 3.45. The patient's WBC was 72.9 from leukemia. The patient's hemoglobin was 11.6. MCV was 104. The patient's blood sugar was slightly elevated, BUN was 5, alkaline phosphatase was 124. The patient's urinalysis was within normal range. The patient's RPR was nonreactive and C. diff was negative. The patient was involved in the program including individual therapy, group therapy, activity therapy. The patient was continued on all her medications including ____ mg daily, Depakote 1500 mg at night, metformin 1000 mg daily, meloxicam 7.5 mg daily, aspirin 81 mg, Zoloft 25 mg daily, levothyroxine 150 mcg daily. The patient did respond until he was here. The patient apparently did not present with any major problems. She is very quite, slow to respond to questions, mostly on wheelchair, most of the time. She did not have any falls. Also, discussed today the discharge plan and reviewed her treatment plan. The patient has made sufficient progress at this time for her to go back to the skilled nursing. The patient's mental status improved. She is able to make eye contact. Speech is monotone, decreased rate and rhythm. Affect and mood showed somewhat blunted decreased psychomotor activity. The patient is not able to hold a conversation. The patient has difficulty comprehending her surroundings. She did not exhibit any psychotic symptoms. She is oriented to surroundings. Her memory is untestable. She is not able to cooperate. Her judgment impaired. Insight minimal. AFTERCARE PLAN: The patient at the time of discharge medically stable and patient is not expressing any suicidal or homicidal thoughts. No overt psychotic symptoms. The patient will return to [facility] and continue with the medications. Continue to see his primary care doctor and psychiatrists. SUSANA MCKEON MD DR: NIDIA/radha JOB#: [id number] / [id number]
[2017-09-01] MEDS ORDERED: METH29OI TP (02:57)
[2017-09-01] MEDS ORDERED: NICO1PAT25 TD (02:58)
[2017-09-01] MEDS ORDERED: CLOZ200T PO (03:01)
[2017-09-01] MEDS ORDERED: CLOZ50TA PO (03:02)
[2017-09-01] MEDS: LEVOTHYROXINE 150 MCG TABLET PO SCH (05:51)
[2017-09-01 06:12] VITALS: BP 120/81
[2017-09-01] MEDS: ASPIRIN 81 MG TAB.CHEW PO SCH (08:02)
[2017-09-01] MEDS: PANTOPRAZOLE 40 MG TABLET. PO SCH (08:02)
[2017-09-01] MEDS: POLYETHYLENE GLYCOL 3350 17 GM PACKET. PO SCH (08:04)
[2017-09-01] MEDS: PSYLLIUM SEED (WITH SUGAR) PACKET. PO SCH (08:04)
[2017-09-01] MEDS: cloZAPine 100 MG TABLET PO SCH (08:04)
[2017-09-01] MEDS: ACETAMINOPHEN 325 MG TABLET PO SCH (08:05)
[2017-09-01] MEDS: MELOXICAM 7.5 MG TABLET PO SCH (08:05)
[2017-09-01] MEDS: NICOTINE 14MG PATCH. TD SCH (08:05)
[2017-09-01] MEDS: SERTRALINE 25 MG TABLET. PO SCH (08:05)
[2017-09-01] MEDS: HEPARIN PF for SUB-Q USE 5,000 UNIT/0.5 ML VIAL. SQ SCH (08:06)
== END 2017-09-01 10:15 | disposition home or self-care (01) | DRG 885 ==
LOC: ER 17:02 → GEROPSY 20:15
PROVIDERS: ADMIT Psychiatry & Neurology Psychiatry; ATTEND Psychiatry & Neurology Psychiatry
DX: F25.0 Schizoaffective disorder, bipolar type (principal); C92.10 Chronic myeloid leukemia, BCR/ABL-positive, not having achieved remission; I69.351 Hemiplegia and hemiparesis following cerebral infarction affecting right dominant side; E03.9 Hypothyroidism, unspecified; E11.9 Type 2 diabetes mellitus without complications; E78.5 Hyperlipidemia, unspecified; F17.210 Nicotine dependence, cigarettes, uncomplicated; F63.9 Impulse disorder, unspecified; F79 Unspecified intellectual disabilities; I10 Essential (primary) hypertension; K21.9 Gastro-esophageal reflux disease without esophagitis; K59.09 Other constipation; K52.9 Noninfective gastroenteritis and colitis, unspecified; F41.9 Anxiety disorder, unspecified; N32.81 Overactive bladder; Z79.84 Long term (current) use of oral hypoglycemic drugs; Z79.899 Other long term (current) drug therapy; Z86.718 Personal history of other venous thrombosis and embolism; Z87.01 Personal history of pneumonia (recurrent); Z87.440 Personal history of urinary (tract) infections; Z90.49 Acquired absence of other specified parts of digestive tract; Z91.19 Patient's noncompliance with other medical treatment and regimen; Z99.3 Dependence on wheelchair; Z88.6 Allergy status to analgesic agent; Z88.1 Allergy status to other antibiotic agents; Z88.0 Allergy status to penicillin; Z88.2 Allergy status to sulfonamides; Z79.01 Long term (current) use of anticoagulants; Z91.14 Patient's other noncompliance with medication regimen
CPT/HCPCS: 36415; 51701; 80053; 80061; 80164; 81001; 82306; 82607; 82947; 83036; 83540; 83550; 83735; 84436; 84443; 84480; 85007; 85025; 86593; 87324; 97010; 97110; 97116; 97530; 99285-25